=== PATIENT | male | born 1940 | race Caucasian/White ===

== ENCOUNTER 2016-08-17 21:36 | Inpatient (IN) | payer MEDICARE, MEDICAID ==
[~2016-08-17] VITALS: Ht 170.2 cm; Wt 59.7 kg
[~2016-08-17 21:36] MED LIST: AMBIEN PO; AMLO10TA4 PO; ARICEPT PO; CELEBREX PO; CLARITIN PO; FLOMAX PO; LANTUS SQ; LEXAPRO PO; MELO15TA13 PO; METF10002 PO; PREG150C PO; QUET100T PO; QUET50TA PO; TEMA30CA5 PO; TOLT4CAP PO
--- NOTE | 2016-08-17 21:45 | NUR ---
Pt just d/c today from [facility], BIB ambulance from rehab for fever and wheezing. Pt A&Ox1, LS = w/rhonchi, no wheezing, temp normal. c/o upper quad, midline ABD pain, unable to qualify. No other complaints, no distress noted
[2016-08-17 22:09] LABS: BASOPHILS # (AUTO) 0.2 K/uL (0.0-8.0); BASOPHILS % (AUTO) 0.3 % (0.0-2.0); EOSINOPHILS # (AUTO) 0.4 K/uL (0.0-0.7); EOSINOPHILS % (AUTO) 0.5 % (0.0-7.0); HEMATOCRIT 37.7 % (40-50); HEMOGLOBIN 12.3 G/DL (14.0-18.0); LYMPHOCYTES # (AUTO) 52.5 K/UL (0.8-4.8); LYMPHOCYTES % (AUTO) 72.1 % (20.5-51.5); MEAN CORPUSCULAR HEMOGLOBIN 27.7 UUG (27.0-31.0); MEAN CORPUSCULAR HGB CONC 33 g/dL (32.0-37.0); MONOCYTES # (AUTO) 6.7 K/UL (0.1-1.30); MONOCYTES % (AUTO) 9.2 % (0.0-11.0); NEUTROPHILS % (AUTO) 17.9 % (38.5-71.5); PLATELET COUNT (AUTO) 238 K/UL (150-450); RED BLOOD CELL COUNT(AUTO) 4.44 MIL/UL (4.7-6.1)
[2016-08-17 22:16] LABS: WHITE BLOOD COUNT (AUTO) 72.8 K/UL (4.0-11.2)
[2016-08-17 22:19] LABS: CARBON DIOXIDE 31 mmol/L (21-32); CHLORIDE 95 mmol/L (98-107); CREATININE 1.8 mg/dL (0.6-1.3); GLUCOSE 270 mg/dL (74-106); POTASSIUM 4.3 mmol/L (3.5-5.1); UREA NITROGEN, BLOOD 37 mg/dL (7-18)
[2016-08-17 22:30] LABS: ALANINE AMINOTRANSFERASE 25 U/L (16-63); ALKALINE PHOSPHATASE 101 U/L (50-136); ASPARTATE AMINOTRANSFERASE 28 U/L (15-37); BILIRUBIN,DIRECT 0.1 mg/dL (0.0-0.2); BILIRUBIN,TOTAL 0.3 mg/dL (0.2-1.0); TOTAL PROTEIN, SERUM 6.6 g/dL (6.4-8.2)
[2016-08-17] MEDS ORDERED: PANT40TA2 PO (22:38)
[2016-08-17] MEDS ORDERED: MULT-447 PO (22:38)
[2016-08-17] MEDS ORDERED: CARV6.252 PO (22:38)
[2016-08-17] MEDS ORDERED: ATOR10TA PO (22:38)
[2016-08-17] MEDS ORDERED: POLY17PO4 PO (22:38)
[2016-08-17] MEDS ORDERED: PREG100C PO (22:38)
[2016-08-17] MEDS ORDERED: NITR0.4T48 SL (22:38)
[2016-08-17] MEDS ORDERED: QUET25TA PO (22:38)
[2016-08-17] MEDS ORDERED: DICL100G16 TP (22:38)
[2016-08-17] MEDS ORDERED: ACET-73 PO (22:38)
[2016-08-17] MEDS ORDERED: MAGN400T6 PO (22:38)
[2016-08-17] MEDS ORDERED: MORP4SYR IV (22:38)
[2016-08-17] MEDS ORDERED: DONE5TAB7 PO (22:38)
[2016-08-17] MEDS ORDERED: HYDR-3326 PO (22:38)
[2016-08-17] MEDS ORDERED: DEXT50DI8 IV (22:38)
[2016-08-17] MEDS ORDERED: INSU200I SQ (22:38)
[2016-08-17] MEDS ORDERED: HYDR-552 PO (22:38)
[2016-08-17] MEDS ORDERED: TRAZ-147 PO (22:38)
[2016-08-17] MEDS ORDERED: ALBU1.257 NEB (22:38)
[2016-08-17] MEDS ORDERED: SENN-18 PO (22:38)
[2016-08-17] MEDS ORDERED: LORA-259 PO (22:38)
[2016-08-17] MEDS ORDERED: ASPI81TA31 PO (22:38)
[2016-08-17] MEDS ORDERED: FURO10VI IV (22:38)
[2016-08-17] MEDS ORDERED: BLOO-140 IN (22:38)
[2016-08-17] MEDS ORDERED: ASCO500T9 PO (22:38)
[2016-08-17] MEDS ORDERED: ENAL1.2515 IV (22:38)
[2016-08-17] MEDS ORDERED: NIAC250T8 PO (22:38)
[2016-08-17] MEDS ORDERED: TAMS-3 PO (22:38)
[2016-08-17] MEDS ORDERED: OMEG1CAP74 PO (22:38)
[2016-08-17] MEDS ORDERED: INSU100V10 SQ (22:38)
[2016-08-17] MEDS ORDERED: BISA10SU8 RC (22:38)
[2016-08-17] MEDS ORDERED: ONDA4VIA30 IV (22:38)
[2016-08-17] MEDS ORDERED: DEXT1CAP3 PO (22:38)
[2016-08-17] MEDS ORDERED: FERR-58 PO (22:38)
[2016-08-17] MEDS ORDERED: DOCU100C36 PO (22:38)
[2016-08-17] MEDS ORDERED: ALBUTEROL SULFATE 2.5 MG/3 ML NEBU NEB PRN (22:45)
[2016-08-17] MEDS ORDERED: ACETAMINOPHEN 325 MG TABLET PO PRN (22:45)
[2016-08-17] MEDS ORDERED: NITROGLYCERIN OINT 1 GM PACKET TP ONE ×2 (22:45→23:05)
[2016-08-17 23:17] LABS: LYMPHOCYTES % (MANUAL) 77 % (20-40); MONOCYTES % (MANUAL) 1 % (2-10); NEUTROPHILS % (MANUAL) 13 % (42-75)
--- NOTE | 2016-08-17 23:28 | NUR ---
Called report to
--- NOTE | 2016-08-18 00:15 | NUR ---
admit new patient to room 217,awake,alert,confused, occasional yelling,Farsi speaking, in no acute distress,no fever at present times, tele SR with LBBB ,skin care and prevention provided,safety precautions,bed alarm on.
[2016-08-18 00:24] VITALS: BP 135/78
[2016-08-18] MEDS: IV 1/2NS 1000 ML 1,000 ML IV PRN ×2 (00:44→18:01)
[2016-08-18] MEDS ORDERED: PIPERACILLIN/TAZO 2.25 GM VIAL ONE (02:31)
[2016-08-18 04:00] VITALS: BP 130/67
[2016-08-18] MEDS: PIPERACILLIN/TAZOBACTAM/D5W 2.25 G in PREMIXED 1 EACH IV SCH ×3 (05:36→21:48)
[2016-08-18 07:01] LABS: ALANINE AMINOTRANSFERASE 19 U/L (16-63); ALKALINE PHOSPHATASE 100 U/L (50-136); ASPARTATE AMINOTRANSFERASE 20 U/L (15-37); BILIRUBIN,TOTAL 0.6 mg/dL (0.2-1.0); CARBON DIOXIDE 30 mmol/L (21-32); CHLORIDE 96 mmol/L (98-107); CHOLESTEROL 156 mg/dL (<200); CREATININE 1.7 mg/dL (0.6-1.3); HDL CHOLESTEROL 41 mg/dL (40-60); MAGNESIUM 2.2 mg/dL (1.8-2.4); PHOSPHOROUS 3.6 mg/dL (2.5-4.9); POTASSIUM 4.6 mmol/L (3.5-5.1); TOTAL PROTEIN, SERUM 6.4 g/dL (6.4-8.2); TRIGLYCERIDES 134 MG/DL (30-150); UREA NITROGEN, BLOOD 36 mg/dL (7-18)
[2016-08-18 07:23] LABS: THYROID STIMULATING HORMONE 1.139 mIU/mL (0.358-3.740)
[2016-08-18 07:38] LABS: BASOPHILS # (AUTO) 0.4 K/uL (0.0-8.0); BASOPHILS % (AUTO) 0.6 % (0.0-2.0); EOSINOPHILS # (AUTO) 0.4 K/uL (0.0-0.7); EOSINOPHILS % (AUTO) 0.6 % (0.0-7.0); HEMATOCRIT 36.1 % (40-50); HEMOGLOBIN 11.7 G/DL (14.0-18.0); LYMPHOCYTES # (AUTO) 52.2 K/UL (0.8-4.8); LYMPHOCYTES % (AUTO) 76.6 % (20.5-51.5); MEAN CORPUSCULAR HEMOGLOBIN 27.5 UUG (27.0-31.0); MEAN CORPUSCULAR HGB CONC 32 g/dL (32.0-37.0); MONOCYTES # (AUTO) 2.9 K/UL (0.1-1.30); MONOCYTES % (AUTO) 4.2 % (0.0-11.0); NEUTROPHILS # (AUTO) 12.3 K/UL (1.8-8.9); PLATELET COUNT (AUTO) 229 K/UL (150-450); RED BLOOD CELL COUNT(AUTO) 4.25 MIL/UL (4.7-6.1)
[2016-08-18 07:55] LABS: WHITE BLOOD COUNT (AUTO) 68.2 K/UL (4.0-11.2)
[2016-08-18 07:56] LABS: GLUCOSE 302 mg/dL (74-106)
[2016-08-18] MEDS ORDERED: VANCOMYCIN IV 1 G in PREMIXED 0 EACH IV ONE (08:00)
--- NOTE | 2016-08-18 08:30 | NUR ---
RECEIVED LAB RESULT WBC IS 68.2,GLUCOSE IS 302,TROPONIN IS 2082,DR RAMOS NOTIFIED WITH NO NEW ORDERS AT THIS TIME.
[2016-08-18] MEDS: ASPIRIN EC 325 MG TABLET.DR PO SCH (08:57)
--- NOTE | 2016-08-18 08:59 | NUR ---
RECEIVED PATIENT ION BED AWAKE ALERT TO SELF ONLY WITH CONFUSSION AND DISORIENTATION TALKING INCOHERENTLY DUE MEDICATIONS GIVEN WITH WATER AND PATIENT WAS ABLE TO SWALLOW MAX ASSIST FOR ALL ADL MAD COMFORTABLE NOT IN DISTRESS AT THIS TIME.
[2016-08-18] MEDS ORDERED: PANTOPRAZOLE SODIUM 40 MG VIAL IV SCH (09:00)
[2016-08-18 10:12] LABS: EOSINOPHILS % (MANUAL) 1 % (0-8); LYMPHOCYTES % (MANUAL) 79 % (20-40); MONOCYTES % (MANUAL) 4 % (2-10); NEUTROPHILS % (MANUAL) 16 % (42-75)
--- NOTE | 2016-08-18 11:45 | NUR ---
DR HUSTON HERE TO SEE PATIENT AWARE OF WBC WITH NEW ORDERS AND NOTED
[2016-08-18 12:10] VITALS: BP 135/75
[2016-08-18] MEDS: ALLOPURINOL 100 MG TABLET PO SCH (12:22)
--- NOTE | 2016-08-18 13:21 | NUR ---
PATIENT SEEN AND EXAMINED BY DR BLAIR WITH NEW ORDERS AND NOTED.
[2016-08-18] MEDS: HYDROXYUREA 500 MG CAPSULE PO SCH (13:25)
--- NOTE | 2016-08-18 15:08 | NUR ---
Clinical Pharmacy Note: Vancomycin Pharmacy to Dose Subjective: To start vancomycin in this 76 y/o gentleman for indication of "documented infection" (no Md note yet, wbc elevated) Objective: weight 59 kg height 170 cm BUN 37 Scr 1.8 Wbc 72.8 Temp 98.8 Assessment/Plan Dosed 1gm vancomycin one time dose today at 0800 as renal function may be unstable. Will continue to dose per level until Scr resolves. Next random ordered for tomorrow am @ 0600. Will check level and dose accordingly. Will continue to monitor
[2016-08-18] MEDS ORDERED: DEXTROSE 50% 50 ML DISP.SYRIN IV PRN (15:30)
--- NOTE | 2016-08-18 15:37 | NUR ---
NEW ORDERS NOTED FROM DR RAMOS TO START BLOOD SUGAR CHECKS AND NOTED.
[2016-08-18 16:12] VITALS: BP 131/60
[2016-08-18] MEDS: BLOOD SUGAR DIAGNOSTIC 1 EACH STRIP VI SCH ×2 (16:14→21:43)
[2016-08-18] MEDS: INSULIN REGULAR, HUMAN 300 UNIT/3 ML VIAL SQ PRN (16:15)
[2016-08-18 16:37] LABS: *BILIRUBIN,URIN NEGATIVE (NEGATIVE); *BLOOD, URINE NEGATIVE (NEGATIVE); *CLARITY,URINE CLEAR (CLEAR); *COLOR,URINE YELLOW (YELLOW); *KETONES,URINE NEGATIVE (NEGATIVE); *PROTEIN,URINE TRACE (NEGATIVE); *UROBILINOGEN,URINE 0.2 E.U./dl (NORMAL); LEUKOCYTE ESTERASE ,URINE NEGATIVE (NEGATIVE); NITRITE, URINE NEGATIVE (NEGATIVE); PH,URINE 7.5 (5.0-8.0)
[2016-08-18 16:42] LABS: UGLUCOSE 1+ (NEGATIVE)
[2016-08-18 16:46] LABS: BACTERIA,URINE NONE SEEN /HPF (NONE SEEN); RBC,URINE 0-3 /HPF (0-3); SQUAMOUS EPITHELIAL CELL,UR NONE SEEN /HPF (NONE SEEN)
[2016-08-18] MEDS: MORPHINE SULFATE 2 MG/1 ML DISP.SYRIN IV PRN ×2 (17:14→22:00)
--- NOTE | 2016-08-18 17:14 | NUR ---
PATIENT IS GETTING AGITATED ANXIOUS AND RESTLESS DR RAMOS AWARE MEDICATED FOR GENERALISED PAIN HE IS ALSO RUBBING HIS LEFT SHOULDER AND WILL OBSERVE
[2016-08-18 17:19] LABS: *URINE TOTAL PROTEIN RANDOM 24.4 mg/dL (<150/24HR)
[2016-08-18 20:00] VITALS: BP 142/70
[2016-08-18] MEDS: INSULIN REGULAR, HUMAN 300 UNITS/3 ML VIAL SQ PRN (21:47)
[2016-08-19] VITALS: BP 122/66
[2016-08-19 04:00] VITALS: BP 148/82
[2016-08-19] MEDS: PANTOPRAZOLE SODIUM 40 MG TABLET.DR PO SCH (05:27)
[2016-08-19] MEDS: PIPERACILLIN/TAZOBACTAM/D5W 2.25 G in PREMIXED 1 EACH IV SCH ×2 (05:27→13:03)
--- NOTE | 2016-08-19 06:28 | NUR ---
PT ALERT ,ORIENTED TO HIS NAME, C/O LEFT SHOULDER PAIN MEDICATED WITH MORPHINE WITH GOOD RELIEF,SLEPT WELL OVERNIGHT,SON ,ZAKIA CAME AND VISITED LAST NIGHT,FED PT WITH LINO. ALL NEEDS ATTENDED,VSS,AFEBRILE MAX 99.3.INCONTINENT BUT NO BM. CONTINUE WITH IV FLUIDS AND ANTIBIOTICS,KEPT ATTENDED AT ALL TIMES.
[2016-08-19] MEDS: BLOOD SUGAR DIAGNOSTIC 1 EACH STRIP VI SCH ×4 (07:37→20:50)
[2016-08-19 07:38] LABS: BASOPHILS # (AUTO) 0.3 K/uL (0.0-8.0); BASOPHILS % (AUTO) 0.6 % (0.0-2.0); EOSINOPHILS % (AUTO) 1.8 % (0.0-7.0); HEMATOCRIT 33.6 % (40-50); HEMOGLOBIN 10.9 G/DL (14.0-18.0); LYMPHOCYTES % (AUTO) 78.8 % (20.5-51.5); MEAN CORPUSCULAR HEMOGLOBIN 27.7 UUG (27.0-31.0); MEAN CORPUSCULAR HGB CONC 32 g/dL (32.0-37.0); MEAN CORPUSCULAR VOLUME 85.7 FL (82.0-92.0); MONOCYTES # (AUTO) 1.5 K/UL (0.1-1.30); MONOCYTES % (AUTO) 2.7 % (0.0-11.0); NEUTROPHILS # (AUTO) 9.2 K/UL (1.8-8.9); NEUTROPHILS % (AUTO) 16.1 % (38.5-71.5); PLATELET COUNT (AUTO) 199 K/UL (150-450); RED BLOOD CELL COUNT(AUTO) 3.93 MIL/UL (4.7-6.1)
[2016-08-19] MEDS: INSULIN REGULAR, HUMAN 300 UNIT/3 ML VIAL SQ PRN ×2 (07:54→11:26)
--- NOTE | 2016-08-19 08:00 | NUR ---
WBC TODAY IS 57.0 TRENDING TO THE RIGHT DIRECTION AT THIS TIME.
[2016-08-19 08:05] LABS: ALANINE AMINOTRANSFERASE 19 U/L (16-63); ALKALINE PHOSPHATASE 93 U/L (50-136); ASPARTATE AMINOTRANSFERASE 14 U/L (15-37); BILIRUBIN,TOTAL 0.6 mg/dL (0.2-1.0); CARBON DIOXIDE 27 mmol/L (21-32); CHLORIDE 98 mmol/L (98-107); CREATINE KINASE, TOTAL 99 U/L (39-308); CREATININE 1.2 mg/dL (0.6-1.3); GLUCOSE 218 mg/dL (74-106); MAGNESIUM 1.9 mg/dL (1.8-2.4); PHOSPHOROUS 3.9 mg/dL (2.5-4.9); TOTAL PROTEIN, SERUM 6.2 g/dL (6.4-8.2); UREA NITROGEN, BLOOD 27 mg/dL (7-18); VANCOMYCIN,RANDOM 8.1 ug/mL (18.0-26.0)
[2016-08-19] MEDS: ALLOPURINOL 100 MG TABLET PO SCH (08:26)
[2016-08-19] MEDS: ASPIRIN EC 325 MG TABLET.DR PO SCH (08:27)
[2016-08-19] MEDS: HYDROXYUREA 500 MG CAPSULE PO SCH (08:31)
--- NOTE | 2016-08-19 10:45 | NUR ---
PATIENT SEEN AND EXAMINED BY DR HUSTON WITH NO NEW ORDERS AT THIS TIME
[2016-08-19] MEDS ORDERED: VANCOMYCIN IV 1 G in PREMIXED 0 EACH IV ONE (11:00)
[2016-08-19 11:50] LABS: EOSINOPHILS % (MANUAL) 2 % (0-8); LYMPHOCYTES % (MANUAL) 79 % (20-40); MONOCYTES % (MANUAL) 3 % (2-10); NEUTROPHILS % (MANUAL) 16 % (42-75)
[2016-08-19 12:08] VITALS: BP 113/53
[2016-08-19] MEDS: ONDANSETRON 4 MG/2 ML VIAL IV PRN (13:02)
[2016-08-19] MEDS: IV 1/2NS 1000 ML 1,000 ML IV PRN (13:03)
--- NOTE | 2016-08-19 13:13 | NUR ---
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 reactive? (per promotion specialist's note) Objective: weight 59 kg height 170 cm BUN 27 Scr 1.2 Wbc 57 (CLL) Temp 99.1 Vancomycin random level: 8.1 (with am labs- post 1gm given on 08/18 at 0800) Assessment/Plan Due to unstable srcr , will continue to dose by fall off level. Since vancomycin random level today us 8.1, will give vancomycin 1gm IVPB x1 today at 1100. Next random ordered for tomorrow am @ 0600. Will check level and dose accordingly. Will continue to monitor
--- NOTE | 2016-08-19 13:41 | NUR ---
NOTED WITH EMESIS OF PARTLY UNDIGESTED FOOD RIGHT WHILE HE WAS EATING MEDICATED WITH ZOFRAN AND MADE COMFORTABLE NO FURTHER EMESIS AT THIS TIME
[2016-08-19 16:16] VITALS: BP 116/63
[2016-08-19] MEDS: CARVEDILOL 3.125 MG TABLET PO SCH (17:01)
--- NOTE | 2016-08-19 17:48 | NUR ---
RESTING IV FLUIDS DISCONTINUED ORDERED MADE COMFORTABLE NO ADVERSE OR ALLERGIC REACTIONS AT THIS TIME.
[2016-08-19 20:42] VITALS: BP 149/70
[2016-08-19] MEDS: ATORVASTATIN 20 MG TABLET PO SCH (20:46)
[2016-08-19] MEDS: PIPERACILLIN/TAZOBACTAM/D5W 3.375 G in PREMIXED 1 EACH IV SCH (20:46)
[2016-08-20 00:12] VITALS: BP 158/81
[2016-08-20 04:12] VITALS: BP 156/83
[2016-08-20] MEDS: PIPERACILLIN/TAZOBACTAM/D5W 3.375 G in PREMIXED 1 EACH IV SCH ×3 (04:58→22:45)
[2016-08-20] MEDS: PANTOPRAZOLE SODIUM 40 MG TABLET.DR PO SCH (05:34)
[2016-08-20] MEDS: BLOOD SUGAR DIAGNOSTIC 1 EACH STRIP VI SCH ×4 (06:33→21:59)
[2016-08-20 06:36] LABS: BASOPHILS # (AUTO) 0.2 K/uL (0.0-8.0); BASOPHILS % (AUTO) 0.4 % (0.0-2.0); EOSINOPHILS # (AUTO) 0.6 K/uL (0.0-0.7); HEMATOCRIT 36.3 % (40-50); HEMOGLOBIN 11.9 G/DL (14.0-18.0); LYMPHOCYTES # (AUTO) 44.8 K/UL (0.8-4.8); LYMPHOCYTES % (AUTO) 79.1 % (20.5-51.5); MEAN CORPUSCULAR HEMOGLOBIN 28.2 UUG (27.0-31.0); MEAN CORPUSCULAR HGB CONC 33 g/dL (32.0-37.0); MEAN CORPUSCULAR VOLUME 85.9 FL (82.0-92.0); MONOCYTES # (AUTO) 1.2 K/UL (0.1-1.30); MONOCYTES % (AUTO) 2.1 % (0.0-11.0); NEUTROPHILS # (AUTO) 9.9 K/UL (1.8-8.9); NEUTROPHILS % (AUTO) 17.4 % (38.5-71.5); PLATELET COUNT (AUTO) 261 K/UL (150-450); RED BLOOD CELL COUNT(AUTO) 4.23 MIL/UL (4.7-6.1)
[2016-08-20 06:45] LABS: WHITE BLOOD COUNT (AUTO) 56.7 K/UL (4.0-11.2)
[2016-08-20 06:54] LABS: ALANINE AMINOTRANSFERASE 19 U/L (16-63); ALKALINE PHOSPHATASE 94 U/L (50-136); ASPARTATE AMINOTRANSFERASE 15 U/L (15-37); BILIRUBIN,TOTAL 0.8 mg/dL (0.2-1.0); CARBON DIOXIDE 26 mmol/L (21-32); CHLORIDE 99 mmol/L (98-107); CREATININE 1.1 mg/dL (0.6-1.3); GLUCOSE 199 mg/dL (74-106); MAGNESIUM 1.9 mg/dL (1.8-2.4); PHOSPHOROUS 4.2 mg/dL (2.5-4.9); POTASSIUM 4.2 mmol/L (3.5-5.1); TOTAL PROTEIN, SERUM 6.8 g/dL (6.4-8.2); UREA NITROGEN, BLOOD 23 mg/dL (7-18); VANCOMYCIN,RANDOM 13.2 ug/mL (18.0-26.0)
[2016-08-20] MEDS: INSULIN REGULAR, HUMAN 300 UNIT/3 ML VIAL SQ PRN ×3 (07:57→17:12)
[2016-08-20 08:05] LABS: LYMPHOCYTES % (MANUAL) 85 % (20-40); MONOCYTES % (MANUAL) 3 % (2-10); NEUTROPHILS % (MANUAL) 12 % (42-75)
--- NOTE | 2016-08-20 08:10 | NUR ---
PATIENT IS CONFUSED AND DISORIENTED SCREAMING AT THE TOP OF HIS VOICE DID SAY PAIN SO I MEDICATED HIM WITH MORPHINE AND HIS IV SITE CHANGED TO HIS RIGHT HAND WITH GAUGE 20 ALL NEEDS ANTICIPATED AND SATISFIED.MAX ASSIST FOR ALL ADL TURNED AND REPOSITIONED AND MADE COMFORTABLE AND WILL CONTINUE TO OBSERVE.
[2016-08-20] MEDS: ASPIRIN 81 MG TAB.CHEW PO SCH (08:18)
[2016-08-20] MEDS: ALLOPURINOL 100 MG TABLET PO SCH (08:18)
[2016-08-20] MEDS: MORPHINE SULFATE 2 MG/1 ML DISP.SYRIN IV PRN (08:18)
[2016-08-20] MEDS: CARVEDILOL 3.125 MG TABLET PO SCH ×2 (08:19→17:05)
[2016-08-20] MEDS: HYDROXYUREA 500 MG CAPSULE PO SCH (08:21)
[2016-08-20] MEDS ORDERED: FUROSEMIDE 20 MG/2 ML VIAL IV ONE (08:30)
--- NOTE | 2016-08-20 09:37 | NUR ---
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 reactive? (per linux system engineer's note) Objective: weight 59 kg height 170 cm BUN 23 Scr 1.1 Wbc 56.7 (CLL) Temp 98.7 Vancomycin random level: 13.2 (with am labs today) Assessment/Plan Due to unstable srcr , will continue to dose by fall off level. Based on random, will give another vancomycin 1gm IVPB x1 today at 1100. Next random ordered for tomorrow am @ 0600. Will check level and dose accordingly. Will continue to monitor
[2016-08-20] MEDS ORDERED: VANCOMYCIN IV 1 G in PREMIXED 0 EACH IV ONE (11:00)
[2016-08-20 11:59] VITALS: BP 137/75
[2016-08-20] MEDS: MORPHINE SULFATE 4 MG/1 ML DISP.SYRIN IV PRN ×2 (12:03→23:19)
--- NOTE | 2016-08-20 12:10 | NUR ---
PATIENT IS AGAIN SCREAMING AT THE TOP OF HIS LUNGS RESTLESS AND STATED PAIN MEDICATED WITH MORPHINE ORDERED AND WILL CONTINUE TO OBSERVE.
[2016-08-20] MEDS: LORAZEPAM 2 MG/1 ML VIAL IV PRN ×2 (12:55→18:21)
--- NOTE | 2016-08-20 12:57 | NUR ---
PATIENT IS STILL SCREAMING AND VERY RESTLESS DESPITE MORPHINE BEING ADMINISTERED ORDERED SO I CALLED AND SPOKE WITH DR RAMOS WITH NEW ORDERS AND NOTED.
--- NOTE | 2016-08-20 13:41 | NUR ---
REMAINS AWAKE BUT NOT SCREAMING AT THIS TIME.
[2016-08-20 14:08] LABS: A/G RATIO 1.4 (0.7-1.7); ALBUMIN 3.3 g/dL (2.9-4.4); ALPHA-1-GLOBULIN 0.3 g/dL (0.0-0.4); ALPHA-2-GLOBULIN 0.7 g/dL (0.4-1.0); BETA GLOBULIN 0.8 g/dL (0.7-1.3); GAMMA GLOBULIN 0.6 g/dL (0.4-1.8); GLOBULIN, TOTAL 2.4 g/dL (2.2-3.9); M-SPIKE Not Observed g/dL (Not Observed)
[2016-08-20 16:00] VITALS: BP 157/61
--- NOTE | 2016-08-20 18:23 | NUR ---
PATIENT IS AGITATED AND RESTLESS SCREAMING TRYING TO GET OUT OF BED REPOSITIONED SO MANY TIMES AT RISKS FOR FALLS RELATED TO CONFUSSION AND DISORIENTATION PATIENT PULLED OUT HER HEPLOCK TWO TIMES TODAY DESPITE THE FACT THAT IT IS WRAPPED A NEW ONE REINSERTED AND WRAPPED PATIENT PLACED UP ON THE KENYATTA/FABIOLA AND WILL OBSERVE.
--- NOTE | 2016-08-20 18:53 | NUR ---
PATIENT IS STILL ON THE KENYATTA/CHAIR BUT HIS SON AND IS AT THE BEDSIDE AT THIS TIME ASSISTING HIM WITH SNACKS QUITE AT THE MOMENT WILL CONTINUE TO OBSERVE.
[2016-08-20 20:00] VITALS: BP 143/68
[2016-08-20] MEDS: ATORVASTATIN 20 MG TABLET PO SCH (21:59)
[2016-08-20] MEDS: INSULIN REGULAR, HUMAN 300 UNITS/3 ML VIAL SQ PRN (22:16)
[2016-08-20] MEDS: ONDANSETRON 4 MG/2 ML VIAL IV PRN (23:19)
--- NOTE | 2016-08-21 00:30 | NUR ---
PT IS AGITATED, SCREAMING, REPEATEDLY TRYING TO GET OUT OF BED. PLACED PATIENT IN THE GERICHAIR, KEPT COMFORTABLE WITH BLANKET AND PILLOWS. ADMINISTERED ATIVAN. WILL CONTINUE TO MONITOR.
[2016-08-21] MEDS: LORAZEPAM 2 MG/1 ML VIAL IV PRN (00:34)
--- NOTE | 2016-08-21 03:00 | NUR ---
PT IS STILL AGITATED, SCREAMING. PROVIDED SNACKS, FLUIDS, MEDS PRN, COMFORT, KEPT CLEAN/DRY, BUT NOT EFFECTIVE. MADE MD AWARE.
[2016-08-21] MEDS ORDERED: OLANZAPINE 10 MG VIAL IM ONE ×2 (03:30→08:45)
--- NOTE | 2016-08-21 03:30 | NUR ---
DR. ROBERT WITH NEW ORDERS FOR ZYPREXA 10MG IM X ONCE. VERBAL ORDERS TAKEN. WILL CONTINUE TO MONITOR.
[2016-08-21 04:46] VITALS: BP 127/58
[2016-08-21] MEDS: PIPERACILLIN/TAZOBACTAM/D5W 3.375 G in PREMIXED 1 EACH IV SCH ×2 (05:16→14:49)
[2016-08-21] MEDS: PANTOPRAZOLE SODIUM 40 MG TABLET.DR PO SCH (06:17)
[2016-08-21] MEDS: BLOOD SUGAR DIAGNOSTIC 1 EACH STRIP VI SCH ×4 (06:33→17:19)
[2016-08-21 06:43] LABS: BASOPHILS # (AUTO) 0.4 K/uL (0.0-8.0); BASOPHILS % (AUTO) 0.7 % (0.0-2.0); EOSINOPHILS # (AUTO) 0.6 K/uL (0.0-0.7); EOSINOPHILS % (AUTO) 1.1 % (0.0-7.0); HEMATOCRIT 35.9 % (40-50); HEMOGLOBIN 11.9 G/DL (14.0-18.0); LYMPHOCYTES # (AUTO) 45.9 K/UL (0.8-4.8); LYMPHOCYTES % (AUTO) 81.7 % (20.5-51.5); MEAN CORPUSCULAR HEMOGLOBIN 28.2 UUG (27.0-31.0); MEAN CORPUSCULAR HGB CONC 33 g/dL (32.0-37.0); MEAN CORPUSCULAR VOLUME 85.3 FL (82.0-92.0); MONOCYTES # (AUTO) 1.2 K/UL (0.1-1.30); MONOCYTES % (AUTO) 2.1 % (0.0-11.0); NEUTROPHILS # (AUTO) 8.1 K/UL (1.8-8.9); NEUTROPHILS % (AUTO) 14.4 % (38.5-71.5); PLATELET COUNT (AUTO) 287 K/UL (150-450); RED BLOOD CELL COUNT(AUTO) 4.21 MIL/UL (4.7-6.1)
[2016-08-21 06:48] LABS: ALANINE AMINOTRANSFERASE 16 U/L (16-63); ALKALINE PHOSPHATASE 93 U/L (50-136); ASPARTATE AMINOTRANSFERASE 16 U/L (15-37); BILIRUBIN,TOTAL 0.4 mg/dL (0.2-1.0); CARBON DIOXIDE 30 mmol/L (21-32); CHLORIDE 97 mmol/L (98-107); CREATININE 1.3 mg/dL (0.6-1.3); GLUCOSE 167 mg/dL (74-106); MAGNESIUM 1.9 mg/dL (1.8-2.4); PHOSPHOROUS 3.7 mg/dL (2.5-4.9); POTASSIUM 3.9 mmol/L (3.5-5.1); TOTAL PROTEIN, SERUM 6.9 g/dL (6.4-8.2); UREA NITROGEN, BLOOD 31 mg/dL (7-18); VANCOMYCIN,RANDOM 18.1 ug/mL (18.0-26.0)
--- NOTE | 2016-08-21 07:00 | NUR ---
Confused, climbing out of bed, agitated, screaming. Request transfer to Room 226 with Sitter. Placed on vandana chair for closed watch for safety.
[2016-08-21 07:15] LABS: WHITE BLOOD COUNT (AUTO) 56.2 K/UL (4.0-11.2)
--- NOTE | 2016-08-21 07:30 | NUR ---
ORDER FOR ZYPREXA NOT GIVEN PATIENT CALMED DOWN FROM 0330 - 0700. WILL ENDORSE THE ORDER TO THE DAY SHIFT. DAY SHIFT RN CALLED PHARM TO RE ENTER ORDER FOR ZYPREXA 10MG IM X ONCE. PT IS STARTING TO GET AGITATED. ZYPREXA WILL BE GIVEN BY DAY SHIFT RN.
[2016-08-21 07:46] LABS: EOSINOPHILS % (MANUAL) 1 % (0-8); LYMPHOCYTES % (MANUAL) 83 % (20-40); MONOCYTES % (MANUAL) 5 % (2-10); NEUTROPHILS % (MANUAL) 11 % (42-75)
[2016-08-21] MEDS ORDERED: VANCOMYCIN IV 1 G in PREMIXED 0 EACH IV ONE (09:00)
[2016-08-21] MEDS: ALLOPURINOL 100 MG TABLET PO SCH (09:34)
[2016-08-21] MEDS: ASPIRIN 81 MG TAB.CHEW PO SCH (09:34)
[2016-08-21] MEDS: CARVEDILOL 3.125 MG TABLET PO SCH (09:34)
--- NOTE | 2016-08-21 09:35 | NUR ---
Continued to be agitated, screaming, refusing meds. Zyprexa IM given as ordered. Calm, cooperative after, took meds
[2016-08-21 11:07] LABS: *IMMUNOGLOBULIN G, SERUM 628 mg/dL (700-1600); IMMUNOGLOBULIN A, SERUM 107 mg/dL (61-437); IMMUNOGLOBULIN M, SERUM 33 mg/dL (15-143)
[2016-08-21 11:26] VITALS: BP 138/68
[2016-08-21] MEDS: INSULIN REGULAR, HUMAN 300 UNIT/3 ML VIAL SQ PRN ×2 (11:52→17:22)
--- NOTE | 2016-08-21 13:36 | NUR ---
Resting on vandana chair, calm.
[2016-08-21 15:12] VITALS: BP 153/75
--- NOTE | 2016-08-21 16:04 | NUR ---
Clinical Pharmacy Note: Vancomycin Pharmacy to Dose Subjective: To continue vancomycin in this 76 y/o gentleman for Leukocytosis with sepsis, suspected asp. 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 Based on random, another vancomycin 1gm IVPB x1 was given today at 0900. Next random ordered for tomorrow am @ 0600. Will check level and dose accordingly. Will continue to monitor
[2016-08-21] MEDS ORDERED: METOPROLOL TARTRATE 25 MG TABLET PO ONE (16:47)
[2016-08-21] MEDS ORDERED: LISI-607 PO (16:59)
[2016-08-21] MEDS ORDERED: ACET325T53 PO (16:59)
[2016-08-21] MEDS ORDERED: QUET25TA PO (17:01)
[2016-08-21] MEDS ORDERED: REPA1TAB PO (17:06)
[2016-08-21] MEDS ORDERED: AMOX-430 PO (17:07)
[2016-08-21] MEDS ORDERED: CARVEDILOL 6.25 MG TABLET PO SCH (18:00)
--- NOTE | 2016-08-21 19:30 | NUR ---
RECEIVED PT IN BED AWAKE, CONFUSED. IN NO ACUTE SIGNS OF DISTRESS. ON 1:1 SITTER FOR SAFETY. SAFETY OBSERVED. [facility].
[2016-08-21 20:00] VITALS: BP 125/64
--- NOTE | 2016-08-21 20:22 | NUR ---
PT WAS DISCHARGED TO [facility]. PICKED UP BY AMBULANCE VIA GURNEY. IV SITE ON R WRIST WAS REMOVED. STABLE IN CONDITION.
[2016-08-22] MEDS ORDERED: GLIMEPIRIDE 2 MG TABLET PO SCH (08:00)
== END 2016-08-21 20:29 | DRG 871 ==
LOC: ER 21:39 → TELE 23:00 → MED 08-20 15:37
PROVIDERS: ADMIT Internal Medicine; ATTEND Internal Medicine
DX: A41.9 Sepsis, unspecified organism (principal); G92 Toxic encephalopathy; I21.4 Non-ST elevation (NSTEMI) myocardial infarction; N17.0 Acute kidney failure with tubular necrosis; J69.0 Pneumonitis due to inhalation of food and vomit; I50.43 Acute on chronic combined systolic (congestive) and diastolic (congestive) heart failure; D68.59 Other primary thrombophilia; E87.1 Hypo-osmolality and hyponatremia; C91.10 Chronic lymphocytic leukemia of B-cell type not having achieved remission; J96.10 Chronic respiratory failure, unspecified whether with hypoxia or hypercapnia; I13.0 Hypertensive heart and chronic kidney disease with heart failure and stage 1 through stage 4 chronic kidney disease, or unspecified chronic kidney disease; G20 Parkinson's disease; F02.80 Dementia in other diseases classified elsewhere, unspecified severity, without behavioral disturbance, psychotic disturbance, mood disturbance, and anxiety; G30.9 Alzheimer's disease, unspecified; Z85.118 Personal history of other malignant neoplasm of bronchus and lung; Z79.84 Long term (current) use of oral hypoglycemic drugs; Z79.899 Other long term (current) drug therapy; N40.0 Benign prostatic hyperplasia without lower urinary tract symptoms; D64.9 Anemia, unspecified; E78.5 Hyperlipidemia, unspecified; E11.65 Type 2 diabetes mellitus with hyperglycemia; I25.10 Atherosclerotic heart disease of native coronary artery without angina pectoris; F29 Unspecified psychosis not due to a substance or known physiological condition; I11.0 Hypertensive heart disease with heart failure; Z74.09 Other reduced mobility; M19.90 Unspecified osteoarthritis, unspecified site; I25.5 Ischemic cardiomyopathy; F31.9 Bipolar disorder, unspecified; I44.7 Left bundle-branch block, unspecified; M48.06 Spinal stenosis, lumbar region; E11.22 Type 2 diabetes mellitus with diabetic chronic kidney disease; N18.9 Chronic kidney disease, unspecified; F25.9 Schizoaffective disorder, unspecified
CPT/HCPCS: 36415; 70030-TC; 70450; 71010; 76770; 82746; 82784; 83550; 83605; 83735; 83970; 84100; 84155; 84156; 84165; 84300; 84443; 84550; 85025; 85610; 85730; 86334; 87040; 87086; 93005; 93307; 97116; 97161; 97530; J1815; J1940; J2060; J2270; J2358; J2405; J2543; J3370; J3490; J7040; J7060

== ENCOUNTER 2016-10-12 15:37 | Inpatient (IN) | payer MEDICARE, MEDICAID ==
[~2016-10-12] VITALS: Ht 170.2 cm; Wt 61.9 kg
[~2016-10-12 15:37] MED LIST changes: +ACET325T53 PO; +ALBU1.257 NEB; -AMBIEN PO; +AMOX-430 PO; -ARICEPT PO; +ASCO500T9 PO; +ASPI81TA31 PO; +ATOR10TA PO; +BISA10SU8 RC; +BLOO-140 IN; +CARV6.252 PO; -CELEBREX PO; -CLARITIN PO; +DEXT1CAP3 PO; +DEXT50DI8 IV; +DOCU100C36 PO; +DONE5TAB7 PO; +FERR-58 PO; -FLOMAX PO; +HYDR-552 PO; +INSU100V10 SQ; -LANTUS SQ; -LEXAPRO PO; +LISI-607 PO; +LORA-259 PO; -METF10002 PO; +MULT-447 PO; +NIAC250T8 PO; +PANT40TA2 PO; +POLY17PO4 PO; +PREG100C PO; -PREG150C PO; -QUET100T PO; +QUET25TA PO; -QUET50TA PO; +REPA1TAB PO; +TAMS-3 PO; -TEMA30CA5 PO; +TRAZ-147 PO
[2016-10-12] MEDS ORDERED: IV NORMAL SALINE 500 ML BAG IV ONE (15:45)
[2016-10-12] MEDS ORDERED: HUMALOG KWIKPEN SQ (16:01)
[2016-10-12 16:07] LABS: BASOPHILS # (AUTO) 0.2 K/uL (0.0-8.0); BASOPHILS % (AUTO) 0.3 % (0.0-2.0); EOSINOPHILS # (AUTO) 0.6 K/uL (0.0-0.7); EOSINOPHILS % (AUTO) 1.1 % (0.0-7.0); HEMATOCRIT 26.1 % (40-50); HEMOGLOBIN 8.5 G/DL (14.0-18.0); LYMPHOCYTES # (AUTO) 42.8 K/UL (0.8-4.8); MEAN CORPUSCULAR HEMOGLOBIN 29.1 UUG (27.0-31.0); MEAN CORPUSCULAR HGB CONC 33 g/dL (32.0-37.0); MEAN CORPUSCULAR VOLUME 88.8 FL (82.0-92.0); NEUTROPHILS # (AUTO) 9.5 K/UL (1.8-8.9); NEUTROPHILS % (AUTO) 16.6 % (38.5-71.5); PLATELET COUNT (AUTO) 201 K/UL (150-450); RED BLOOD CELL COUNT(AUTO) 2.94 MIL/UL (4.7-6.1)
[2016-10-12 16:14] LABS: WHITE BLOOD COUNT (AUTO) 57.1 K/UL (4.0-11.2)
[2016-10-12 16:16] LABS: CARBON DIOXIDE 31 mmol/L (21-32); CHLORIDE 97 mmol/L (98-107); CREATININE 1.4 mg/dL (0.6-1.3); GLUCOSE 264 mg/dL (74-106); POTASSIUM 4.7 mmol/L (3.5-5.1); UREA NITROGEN, BLOOD 26 mg/dL (7-18)
[2016-10-12 16:28] LABS: ALANINE AMINOTRANSFERASE 22 U/L (16-63); ALKALINE PHOSPHATASE 93 U/L (50-136); ASPARTATE AMINOTRANSFERASE 12 U/L (15-37); BILIRUBIN,DIRECT 0.1 mg/dL (0.0-0.2); BILIRUBIN,TOTAL 0.1 mg/dL (0.2-1.0); TOTAL PROTEIN, SERUM 6.1 g/dL (6.4-8.2)
[2016-10-12 16:37] LABS: EOSINOPHILS % (MANUAL) 1 % (0-8); LYMPHOCYTES % (MANUAL) 79 % (20-40); MONOCYTES % (MANUAL) 6 % (2-10); NEUTROPHILS % (MANUAL) 14 % (42-75)
[2016-10-12] MEDS ORDERED: FUROSEMIDE 20 MG/2 ML VIAL IV ONE (16:45)
[2016-10-12] MEDS ORDERED: FUROSEMIDE 40 MG/4 ML VIAL ONE (16:55)
[2016-10-12] MEDS ORDERED: LORAZEPAM 2 MG/1 ML VIAL IV STA (17:13)
[2016-10-12] MEDS ORDERED: LORAZEPAM 2 MG/1 ML VIAL ONE (17:27)
[2016-10-12 17:32] LABS: *BILIRUBIN,URIN NEGATIVE (NEGATIVE); *BLOOD, URINE NEGATIVE (NEGATIVE); *CLARITY,URINE CLEAR (CLEAR); *KETONES,URINE NEGATIVE (NEGATIVE); *PROTEIN,URINE NEGATIVE (NEGATIVE); *UROBILINOGEN,URINE 0.2 E.U./dl (NORMAL); LEUKOCYTE ESTERASE ,URINE NEGATIVE (NEGATIVE); NITRITE, URINE NEGATIVE (NEGATIVE); UGLUCOSE TRACE (NEGATIVE)
[2016-10-12 17:38] VITALS: BP 145/68
[2016-10-12 17:40] LABS: *COLOR,URINE STRAW (YELLOW)
[2016-10-12 17:43] LABS: WBC,URINE NONE SEEN /HPF (0-3)
[2016-10-12 19:00] VITALS: BP 146/66
[2016-10-12] MEDS ORDERED: ZOLPIDEM 5 MG TABLET PO PRN (19:45)
[2016-10-12] MEDS ORDERED: Z GUARD REMEDY PASTE 57 GM TUBE TOP PRN (19:45)
[2016-10-12] MEDS ORDERED: MIRALAX 17 GM POWD.PACK PO PRN (19:45)
[2016-10-12] MEDS ORDERED: QUETIAPINE FUMARATE 25 MG TABLET PO PRN (19:45)
[2016-10-12] MEDS ORDERED: ACETAMINOPHEN 325 MG TABLET PO PRN (19:45)
[2016-10-12] MEDS ORDERED: ONDANSETRON 4 MG/2 ML VIAL IV PRN (19:45)
[2016-10-12] MEDS: ATORVASTATIN 10 MG TABLET PO SCH (20:30)
[2016-10-12] MEDS: TRAZODONE 100 MG TABLET PO SCH (20:30)
[2016-10-12] MEDS: DONEPEZIL 5 MG TABLET PO SCH (20:30)
[2016-10-12] MEDS: QUETIAPINE FUMARATE 25 MG TABLET PO SCH (20:30)
[2016-10-12] MEDS: FUROSEMIDE 40 MG/4 ML VIAL IV SCH (20:32)
[2016-10-12] MEDS: BLOOD SUGAR DIAGNOSTIC 1 EACH STRIP VI SCH (20:48)
[2016-10-12] MEDS: INSULIN REGULAR, HUMAN 300 UNIT/3 ML VIAL SQ PRN (20:50)
[2016-10-12] MEDS: INSULIN DETEMIR 300 UNIT/3 ML CARTRIDGE SQ SCH (20:51)
[2016-10-12] MEDS ORDERED: HALOPERIDOL LACTATE 5 MG/1 ML VIAL IM ONE (22:15)
[2016-10-12] MEDS ORDERED: HALOPERIDOL LACTATE 5 MG/1 ML VIAL ONE (22:30)
[2016-10-12] MEDS ORDERED: ALBU2.5V38 IH (23:47)
[2016-10-12] MEDS ORDERED: ALBU2.5V38 NEB (23:47)
[2016-10-12] MEDS ORDERED: ASCO-375 PO (23:48)
[2016-10-12] MEDS ORDERED: LORA-259 PO (23:50)
[2016-10-12] MEDS ORDERED: ASPI81TA31 PO (23:50)
[2016-10-12] MEDS ORDERED: BISA10SU8 RC (23:52)
[2016-10-13] VITALS: BP 155/78
[2016-10-13] MEDS: HYDROCODONE/APAP 5-325MG TABLET PO PRN ×2 (00:17→13:26)
[2016-10-13] MEDS ORDERED: HALOPERIDOL LACTATE 5 MG/1 ML VIAL IM ONE (00:45)
[2016-10-13] MEDS ORDERED: HALOPERIDOL LACTATE 5 MG/1 ML VIAL ONE (01:37)
[2016-10-13 06:52] VITALS: BP 116/65
[2016-10-13] MEDS: PANTOPRAZOLE SODIUM 40 MG TABLET.DR PO SCH (07:00)
[2016-10-13] MEDS: BLOOD SUGAR DIAGNOSTIC 1 EACH STRIP VI SCH ×4 (07:21→22:05)
[2016-10-13] MEDS: DEXTROSE 50% 50 ML DISP.SYRIN IV PRN (07:33)
[2016-10-13 07:59] LABS: CARBON DIOXIDE 32 mmol/L (21-32); CHLORIDE 97 mmol/L (98-107); CHOLESTEROL 166 mg/dL (<200); CREATININE 1.3 mg/dL (0.6-1.3); HDL CHOLESTEROL 55 mg/dL (40-60); MAGNESIUM 1.6 mg/dL (1.8-2.4); POTASSIUM 3.7 mmol/L (3.5-5.1); TRIGLYCERIDES 139 MG/DL (30-150); UREA NITROGEN, BLOOD 25 mg/dL (7-18)
[2016-10-13 08:07] LABS: THYROID STIMULATING HORMONE 2.662 mIU/mL (0.358-3.740)
[2016-10-13 08:12] LABS: BASOPHILS # (AUTO) 0.3 K/uL (0.0-8.0); BASOPHILS % (AUTO) 0.5 % (0.0-2.0); EOSINOPHILS # (AUTO) 0.9 K/uL (0.0-0.7); EOSINOPHILS % (AUTO) 1.5 % (0.0-7.0); LYMPHOCYTES # (AUTO) 47.3 K/UL (0.8-4.8); LYMPHOCYTES % (AUTO) 78.5 % (20.5-51.5); MEAN CORPUSCULAR HEMOGLOBIN 28.5 UUG (27.0-31.0); MEAN CORPUSCULAR HGB CONC 33 g/dL (32.0-37.0); MEAN CORPUSCULAR VOLUME 87.1 FL (82.0-92.0); MONOCYTES # (AUTO) 1.9 K/UL (0.1-1.30); MONOCYTES % (AUTO) 3.1 % (0.0-11.0); NEUTROPHILS # (AUTO) 9.9 K/UL (1.8-8.9); NEUTROPHILS % (AUTO) 16.4 % (38.5-71.5); PLATELET COUNT (AUTO) 245 K/UL (150-450)
[2016-10-13 08:15] LABS: HEMOGLOBIN 10.8 G/DL (14.0-18.0); RED BLOOD CELL COUNT(AUTO) 3.79 MIL/UL (4.7-6.1)
[2016-10-13 08:17] LABS: GLUCOSE 52 mg/dL (74-106)
[2016-10-13 08:18] LABS: WHITE BLOOD COUNT (AUTO) 60.3 K/UL (4.0-11.2)
[2016-10-13] MEDS ORDERED: PANTOPRAZOLE SODIUM 40 MG TABLET.DR PO SCH (09:00)
[2016-10-13 09:29] LABS: EOSINOPHILS % (MANUAL) 1 % (0-8); LYMPHOCYTES % (MANUAL) 79 % (20-40); MONOCYTES % (MANUAL) 3 % (2-10); NEUTROPHILS % (MANUAL) 17 % (42-75)
[2016-10-13] MEDS: PREGABALIN 100 MG CAPSULE PO SCH ×3 (09:59→17:44)
[2016-10-13] MEDS: FUROSEMIDE 40 MG/4 ML VIAL IV SCH ×2 (09:59→21:00)
[2016-10-13] MEDS: FERROUS SULFATE 325 MG TABEC PO SCH (09:59)
[2016-10-13] MEDS: DOCUSATE SODIUM 100 MG CAPSULE PO SCH (09:59)
[2016-10-13] MEDS: TAMSULOSIN HCL 0.4 MG CAP.SR.24H PO SCH ×2 (09:59→21:59)
[2016-10-13] MEDS: TOLTERODINE LA 2 MG CAP.SR.24H PO SCH (10:00)
[2016-10-13] MEDS: CARVEDILOL 6.25 MG TABLET PO SCH ×2 (10:00→17:50)
[2016-10-13] MEDS: AMLODIPINE 10 MG TABLET PO SCH (10:00)
[2016-10-13] MEDS: REPAGLINIDE 1 MG TABLET PO SCH ×3 (10:03→17:43)
[2016-10-13 11:47] VITALS: BP 122/55
[2016-10-13] MEDS: INSULIN REGULAR, HUMAN 300 UNIT/3 ML VIAL SQ PRN ×3 (12:08→22:09)
[2016-10-13] MEDS: MAGNESIUM SULFATE/D5W 100 ML IV SCH ×2 (15:09→17:39)
[2016-10-13 16:20] VITALS: BP 152/53
[2016-10-13] MEDS ORDERED: ALBUTEROL SULFATE 2.5 MG/3 ML NEBU IH PRN (18:45)
[2016-10-13] MEDS ORDERED: BISACODYL 10 MG SUPP.RECT RC PRN (18:45)
[2016-10-13] MEDS ORDERED: DEXTROSE 50% 50 ML DISP.SYRIN IV PRN (18:45)
[2016-10-13 19:17] VITALS: BP 119/61
[2016-10-13] MEDS: DONEPEZIL 5 MG TABLET PO SCH (21:59)
[2016-10-13] MEDS: ATORVASTATIN 10 MG TABLET PO SCH (21:59)
[2016-10-13] MEDS: QUETIAPINE FUMARATE 25 MG TABLET PO SCH (21:59)
[2016-10-13] MEDS: TRAZODONE 100 MG TABLET PO SCH (21:59)
[2016-10-13] MEDS: INSULIN DETEMIR 300 UNIT/3 ML CARTRIDGE SQ SCH (22:07)
[2016-10-14 03:00] VITALS: BP 116/54
[2016-10-14 04:18] VITALS: BP 121/54
[2016-10-14 05:57] LABS: ALANINE AMINOTRANSFERASE 23 U/L (16-63); ALKALINE PHOSPHATASE 92 U/L (50-136); ASPARTATE AMINOTRANSFERASE 16 U/L (15-37); BILIRUBIN,TOTAL 0.3 mg/dL (0.2-1.0); CARBON DIOXIDE 35 mmol/L (21-32); CHLORIDE 99 mmol/L (98-107); CREATININE 1.3 mg/dL (0.6-1.3); MAGNESIUM 2.2 mg/dL (1.8-2.4); PHOSPHOROUS 5.5 mg/dL (2.5-4.9); POTASSIUM 3.6 mmol/L (3.5-5.1); UREA NITROGEN, BLOOD 32 mg/dL (7-18)
[2016-10-14 06:01] LABS: GLUCOSE 41 mg/dL (74-106)
[2016-10-14] MEDS: DEXTROSE 50% 50 ML DISP.SYRIN IV PRN (06:17)
[2016-10-14] MEDS: PANTOPRAZOLE SODIUM 40 MG TABLET.DR PO SCH (06:23)
[2016-10-14] MEDS: BLOOD SUGAR DIAGNOSTIC 1 EACH STRIP VI SCH ×4 (07:09→20:59)
[2016-10-14] MEDS: ASPIRIN 81 MG TAB.CHEW PO SCH (08:20)
[2016-10-14] MEDS: TAMSULOSIN HCL 0.4 MG CAP.SR.24H PO SCH ×2 (08:20→20:49)
[2016-10-14] MEDS: ASCORBIC ACID 500 MG TABLET PO SCH (08:20)
[2016-10-14] MEDS: DOCUSATE SODIUM 100 MG CAPSULE PO SCH (08:20)
[2016-10-14] MEDS: CARVEDILOL 6.25 MG TABLET PO SCH ×2 (08:21→17:06)
[2016-10-14] MEDS: REPAGLINIDE 1 MG TABLET PO SCH ×3 (08:21→17:06)
[2016-10-14] MEDS: FERROUS SULFATE 325 MG TABEC PO SCH (08:21)
[2016-10-14] MEDS: TOLTERODINE LA 2 MG CAP.SR.24H PO SCH (08:21)
[2016-10-14] MEDS: PREGABALIN 100 MG CAPSULE PO SCH ×3 (08:21→17:06)
[2016-10-14] MEDS: FUROSEMIDE 40 MG/4 ML VIAL IV SCH (10:31)
[2016-10-14] MEDS: AMLODIPINE 10 MG TABLET PO SCH (10:34)
[2016-10-14] MEDS: LISINOPRIL 5 MG TABLET PO SCH (10:34)
[2016-10-14] MEDS: INSULIN REGULAR, HUMAN 300 UNIT/3 ML VIAL SQ PRN ×3 (11:59→21:09)
[2016-10-14 16:00] VITALS: BP 109/47
[2016-10-14 20:10] VITALS: BP 108/50
[2016-10-14] MEDS: ATORVASTATIN 10 MG TABLET PO SCH (20:49)
[2016-10-14] MEDS: QUETIAPINE FUMARATE 25 MG TABLET PO SCH (20:49)
[2016-10-14] MEDS: DONEPEZIL 5 MG TABLET PO SCH (20:49)
[2016-10-14] MEDS: TRAZODONE 100 MG TABLET PO SCH (20:49)
[2016-10-14] MEDS ORDERED: INSULIN DETEMIR 300 UNIT/3 ML CARTRIDGE SQ SCH (21:00)
[2016-10-15 06:28] LABS: BASOPHILS # (AUTO) 0.7 K/uL (0.0-8.0); BASOPHILS % (AUTO) 1.1 % (0.0-2.0); EOSINOPHILS # (AUTO) 0.9 K/uL (0.0-0.7); EOSINOPHILS % (AUTO) 1.4 % (0.0-7.0); HEMATOCRIT 34.7 % (40-50); HEMOGLOBIN 11.5 G/DL (14.0-18.0); LYMPHOCYTES # (AUTO) 50.1 K/UL (0.8-4.8); LYMPHOCYTES % (AUTO) 74.7 % (20.5-51.5); MEAN CORPUSCULAR HEMOGLOBIN 29.1 UUG (27.0-31.0); MEAN CORPUSCULAR HGB CONC 33 g/dL (32.0-37.0); MEAN CORPUSCULAR VOLUME 87.8 FL (82.0-92.0); MONOCYTES # (AUTO) 3.1 K/UL (0.1-1.30); MONOCYTES % (AUTO) 4.7 % (0.0-11.0); NEUTROPHILS # (AUTO) 12.1 K/UL (1.8-8.9); NEUTROPHILS % (AUTO) 18.1 % (38.5-71.5); PLATELET COUNT (AUTO) 242 K/UL (150-450); RED BLOOD CELL COUNT(AUTO) 3.95 MIL/UL (4.7-6.1)
[2016-10-15] MEDS: PANTOPRAZOLE SODIUM 40 MG TABLET.DR PO SCH (06:30)
[2016-10-15] MEDS: BLOOD SUGAR DIAGNOSTIC 1 EACH STRIP VI SCH ×2 (06:30→12:19)
[2016-10-15 06:43] LABS: CARBON DIOXIDE 35 mmol/L (21-32); CHLORIDE 98 mmol/L (98-107); CREATININE 1.7 mg/dL (0.6-1.3); GLUCOSE 86 mg/dL (74-106); POTASSIUM 3.9 mmol/L (3.5-5.1); UREA NITROGEN, BLOOD 35 mg/dL (7-18)
[2016-10-15 06:52] VITALS: BP 114/54
[2016-10-15 07:18] VITALS: BP 112/48
[2016-10-15] MEDS: PREGABALIN 100 MG CAPSULE PO SCH ×2 (08:03→12:24)
[2016-10-15] MEDS: DOCUSATE SODIUM 100 MG CAPSULE PO SCH (08:03)
[2016-10-15] MEDS: AMLODIPINE 10 MG TABLET PO SCH (08:03)
[2016-10-15] MEDS: ASPIRIN 81 MG TAB.CHEW PO SCH (08:03)
[2016-10-15] MEDS: FERROUS SULFATE 325 MG TABEC PO SCH (08:03)
[2016-10-15] MEDS: REPAGLINIDE 1 MG TABLET PO SCH ×2 (08:03→12:23)
[2016-10-15] MEDS: TOLTERODINE LA 2 MG CAP.SR.24H PO SCH (08:03)
[2016-10-15] MEDS: TAMSULOSIN HCL 0.4 MG CAP.SR.24H PO SCH (08:03)
[2016-10-15] MEDS: ASCORBIC ACID 500 MG TABLET PO SCH (08:03)
[2016-10-15] MEDS: LISINOPRIL 5 MG TABLET PO SCH (08:04)
[2016-10-15] MEDS: CARVEDILOL 6.25 MG TABLET PO SCH (08:04)
[2016-10-15 08:05] LABS: WHITE BLOOD COUNT (AUTO) 66.9 K/UL (4.0-11.2)
[2016-10-15 08:50] LABS: BAND % (MANUAL) 1 % (0-10); LYMPHOCYTES % (MANUAL) 82 % (20-40); MONOCYTES % (MANUAL) 1 % (2-10); NEUTROPHILS % (MANUAL) 16 % (42-75)
[2016-10-15] MEDS ORDERED: INSU100V10 SQ (09:27)
[2016-10-15 11:26] VITALS: BP 123/52
[2016-10-15] MEDS: INSULIN REGULAR, HUMAN 300 UNIT/3 ML VIAL SQ PRN (12:22)
== END 2016-10-15 15:30 | DRG 291 ==
LOC: ER 15:38 → TELE 17:12 → MED 10-13 16:05
DX: I11.0 Hypertensive heart disease with heart failure (principal); N17.0 Acute kidney failure with tubular necrosis; F02.81 Dementia in other diseases classified elsewhere, unspecified severity, with behavioral disturbance; C91.10 Chronic lymphocytic leukemia of B-cell type not having achieved remission; J98.11 Atelectasis; E87.1 Hypo-osmolality and hyponatremia; E11.649 Type 2 diabetes mellitus with hypoglycemia without coma; G30.9 Alzheimer's disease, unspecified; G20 Parkinson's disease; I50.43 Acute on chronic combined systolic (congestive) and diastolic (congestive) heart failure; Z79.899 Other long term (current) drug therapy; Z79.82 Long term (current) use of aspirin; E78.5 Hyperlipidemia, unspecified; I25.5 Ischemic cardiomyopathy; Z79.4 Long term (current) use of insulin; I44.7 Left bundle-branch block, unspecified; I25.10 Atherosclerotic heart disease of native coronary artery without angina pectoris; F25.9 Schizoaffective disorder, unspecified; Z85.118 Personal history of other malignant neoplasm of bronchus and lung; Z98.890 Other specified postprocedural states; M48.06 Spinal stenosis, lumbar region
CPT/HCPCS: 36415; 70030-TC; 71010; 83735; 84100; 84443; 85025; 85730; 87086; 93005; 97112; 97530; A4663; J1630; J1815; J1940; J2060; J3475; J3490; J7040

== ENCOUNTER 2017-01-02 17:41 | Inpatient (IN) | payer MEDICARE, MEDICAID ==
[~2017-01-02] VITALS: Ht 170.2 cm; Wt 58.1 kg
[~2017-01-02 17:41] MED LIST changes: -ALBU1.257 NEB; +ALBU2.5V38 IH; -AMOX-430 PO; +ASCO-375 PO; -ASCO500T9 PO; +HUMALOG KWIKPEN SQ
[2017-01-02] MEDS ORDERED: MELO-107 PO (18:12)
[2017-01-02] MEDS ORDERED: LACT1CAP61 PO (18:12)
[2017-01-02] MEDS ORDERED: ACET325T53 PO (18:12)
[2017-01-02] MEDS ORDERED: REPA1TAB6 PO (18:12)
[2017-01-02] MEDS ORDERED: LISI-607 PO (18:12)
[2017-01-02] MEDS ORDERED: INSU100V10 SQ (18:12)
[2017-01-02] MEDS ORDERED: QUET50TA PO (18:12)
[2017-01-02] MEDS ORDERED: CEFTRIAXONE 1 G in IV DEXTROSE 5% 50 ML IV ONE (18:45)
[2017-01-02 19:00] LABS: BASOPHILS # (AUTO) 0.3 K/uL (0.0-8.0); BASOPHILS % (AUTO) 0.4 % (0.0-2.0); EOSINOPHILS # (AUTO) 0.1 K/uL (0.0-0.7); EOSINOPHILS % (AUTO) 0.1 % (0.0-7.0); HEMATOCRIT 33.6 % (40-50); LYMPHOCYTES # (AUTO) 44.2 K/UL (0.8-4.8); LYMPHOCYTES % (AUTO) 56.8 % (20.5-51.5); MEAN CORPUSCULAR HEMOGLOBIN 26.7 UUG (27.0-31.0); MEAN CORPUSCULAR HGB CONC 33 g/dL (32.0-37.0); MEAN CORPUSCULAR VOLUME 81.8 FL (82.0-92.0); MONOCYTES # (AUTO) 5.5 K/UL (0.1-1.30); NEUTROPHILS # (AUTO) 27.8 K/UL (1.8-8.9); NEUTROPHILS % (AUTO) 35.7 % (38.5-71.5); PLATELET COUNT (AUTO) 329 K/UL (150-450); RED BLOOD CELL COUNT(AUTO) 4.11 MIL/UL (4.7-6.1)
[2017-01-02 19:00] LABS: ABG BASE EXCESS 1.3 mmol/L; ABG HCO3 25.2 mmol/L; ABG PCO2 37.2 mmHg (35.0-45.0); ABG PH 7.448 (7.350-7.450); ABG PO2 86.1 mmHg (75.0-100.0); ABG SITE RIGHT RADIAL; ABG TOTAL HEMOGLOBIN 11.2 G/dL (13.5-18.0); COHb 1.3 % (0.5-1.5); MetHb 0.2 % (0.0-1.5); O2Hb 95.8 % (94.0-97.0); VENT MODE ROOM AIR
[2017-01-02 19:11] LABS: CARBON DIOXIDE 27 mmol/L (21-32); CHLORIDE 97 mmol/L (98-107); CREATININE 1.7 mg/dL (0.6-1.3); GLUCOSE 197 mg/dL (74-106); POTASSIUM 4.8 mmol/L (3.5-5.1); UREA NITROGEN, BLOOD 39 mg/dL (7-18)
[2017-01-02 19:14] LABS: WHITE BLOOD COUNT (AUTO) 77.9 K/UL (4.0-11.2)
[2017-01-02 19:23] LABS: ALANINE AMINOTRANSFERASE 16 U/L (16-63); ALKALINE PHOSPHATASE 101 U/L (50-136); ASPARTATE AMINOTRANSFERASE 9 U/L (15-37); BILIRUBIN,DIRECT 0.1 mg/dL (0.0-0.2); BILIRUBIN,TOTAL 0.2 mg/dL (0.2-1.0); TOTAL PROTEIN, SERUM 6.6 g/dL (6.4-8.2)
[2017-01-02] MEDS ORDERED: CEFTRIAXONE 1 G VIAL ONE (19:23)
[2017-01-02 19:46] LABS: *BILIRUBIN,URIN NEGATIVE (NEGATIVE); *BLOOD, URINE 1+ (NEGATIVE); *COLOR,URINE YELLOW (YELLOW); *KETONES,URINE NEGATIVE (NEGATIVE); *PROTEIN,URINE 1+ (NEGATIVE); *UROBILINOGEN,URINE 0.2 E.U./dl (NORMAL); NITRITE, URINE NEGATIVE (NEGATIVE); PH,URINE 5.5 (5.0-8.0); UGLUCOSE NEGATIVE (NEGATIVE)
[2017-01-02 20:15] LABS: *CLARITY,URINE CLOUDY (CLEAR); LEUKOCYTE ESTERASE ,URINE 2+ (NEGATIVE)
[2017-01-02 20:16] LABS: BACTERIA,URINE MANY /HPF (NONE SEEN); SQUAMOUS EPITHELIAL CELL,UR FEW /HPF (NONE SEEN); WBC,URINE 80-100 /HPF (0-3)
[2017-01-02 21:35] LABS: BAND % (MANUAL) 3 % (0-10); LYMPHOCYTES % (MANUAL) 67 % (20-40); MONOCYTES % (MANUAL) 3 % (2-10); NEUTROPHILS % (MANUAL) 27 % (42-75)
[2017-01-02 22:00] VITALS: BP 143/60
[2017-01-02] MEDS ORDERED: MIRALAX 17 GM POWD.PACK PO PRN (23:45)
[2017-01-02] MEDS ORDERED: ACETAMINOPHEN 325 MG TABLET PO PRN (23:45)
[2017-01-02] MEDS ORDERED: ALBUTEROL SULFATE 2.5 MG/3 ML NEBU IH PRN (23:45)
[2017-01-02] MEDS ORDERED: BISACODYL 10 MG SUPP.RECT RC PRN (23:45)
[2017-01-02] MEDS ORDERED: DEXTROSE 50% 50 ML DISP.SYRIN IV PRN (23:45)
[2017-01-02] MEDS ORDERED: INSULIN DETEMIR 300 UNIT/3 ML CARTRIDGE SQ SCH (23:45)
[2017-01-03] MEDS ORDERED: PIPERACILLIN/TAZO 2.25 GM VIAL ONE (00:58)
[2017-01-03] MEDS ORDERED: INSULIN DETEMIR 300 UNIT/3 ML CARTRIDGE SQ ONE (00:59)
[2017-01-03] MEDS ORDERED: HYDROCODONE/APAP 5-325MG TABLET ONE (01:35)
[2017-01-03] MEDS: IV 1/2NS 1000 ML 1,000 ML IV PRN (01:39)
[2017-01-03] MEDS: PIPERACILLIN/TAZOBACTAM/D5W 2.25 G in PREMIXED 1 EACH IV SCH ×5 (01:41→20:17)
[2017-01-03] MEDS: HYDROCODONE/APAP 5-325MG TABLET PO PRN (01:42)
[2017-01-03 04:25] VITALS: BP 128/58
[2017-01-03 06:35] LABS: ALANINE AMINOTRANSFERASE 14 U/L (16-63); ALKALINE PHOSPHATASE 98 U/L (50-136); ASPARTATE AMINOTRANSFERASE 6 U/L (15-37); BILIRUBIN,TOTAL 0.2 mg/dL (0.2-1.0); CARBON DIOXIDE 27 mmol/L (21-32); CHLORIDE 97 mmol/L (98-107); CREATININE 1.5 mg/dL (0.6-1.3); GLUCOSE 235 mg/dL (74-106); MAGNESIUM 1.8 mg/dL (1.8-2.4); PHOSPHOROUS 3.5 mg/dL (2.5-4.9); POTASSIUM 4.3 mmol/L (3.5-5.1); TOTAL PROTEIN, SERUM 6.3 g/dL (6.4-8.2); UREA NITROGEN, BLOOD 34 mg/dL (7-18)
[2017-01-03 06:51] LABS: BASOPHILS # (AUTO) 0.5 K/uL (0.0-8.0); BASOPHILS % (AUTO) 0.8 % (0.0-2.0); EOSINOPHILS # (AUTO) 0.1 K/uL (0.0-0.7); EOSINOPHILS % (AUTO) 0.1 % (0.0-7.0); HEMATOCRIT 32.6 % (40-50); HEMOGLOBIN 10.7 G/DL (14.0-18.0); LYMPHOCYTES # (AUTO) 41.3 K/UL (0.8-4.8); MEAN CORPUSCULAR HEMOGLOBIN 27.2 UUG (27.0-31.0); MEAN CORPUSCULAR HGB CONC 33 g/dL (32.0-37.0); MEAN CORPUSCULAR VOLUME 83.1 FL (82.0-92.0); NEUTROPHILS # (AUTO) 23.7 K/UL (1.8-8.9); NEUTROPHILS % (AUTO) 35.1 % (38.5-71.5); PLATELET COUNT (AUTO) 305 K/UL (150-450); RED BLOOD CELL COUNT(AUTO) 3.93 MIL/UL (4.7-6.1)
[2017-01-03] MEDS: BLOOD SUGAR DIAGNOSTIC 1 EACH STRIP VI SCH ×4 (06:54→20:59)
[2017-01-03 07:26] LABS: WHITE BLOOD COUNT (AUTO) 67.7 K/UL (4.0-11.2)
[2017-01-03 08:05] LABS: IRON, SERUM 11 ug/dL (50-175)
[2017-01-03] MEDS: DOCUSATE SODIUM 100 MG CAPSULE PO SCH (08:41)
[2017-01-03] MEDS: AMLODIPINE 10 MG TABLET PO SCH (08:41)
[2017-01-03] MEDS: ASCORBIC ACID 500 MG TABLET PO SCH (08:41)
[2017-01-03] MEDS: ASPIRIN 81 MG TAB.CHEW PO SCH (08:41)
[2017-01-03] MEDS: REPAGLINIDE 1 MG TABLET PO SCH ×3 (08:42→17:00)
[2017-01-03] MEDS: FERROUS SULFATE 325 MG TABEC PO SCH (08:42)
[2017-01-03] MEDS: TAMSULOSIN HCL 0.4 MG CAP.SR.24H PO SCH ×2 (08:42→17:00)
[2017-01-03] MEDS: CARVEDILOL 6.25 MG TABLET PO SCH ×2 (08:42→17:00)
[2017-01-03] MEDS: PANTOPRAZOLE SODIUM 40 MG TABLET.DR PO SCH (08:42)
[2017-01-03] MEDS: INSULIN REGULAR, HUMAN 300 UNIT/3 ML VIAL SQ PRN ×3 (08:45→17:10)
[2017-01-03] MEDS: PREGABALIN 100 MG CAPSULE PO SCH ×3 (09:00→17:00)
[2017-01-03] MEDS: TOLTERODINE LA 2 MG CAP.SR.24H PO SCH (09:00)
[2017-01-03 09:02] LABS: LYMPHOCYTES % (MANUAL) 65 % (20-40); MONOCYTES % (MANUAL) 3 % (2-10); NEUTROPHILS % (MANUAL) 32 % (42-75)
[2017-01-03] MEDS ORDERED: VANCOMYCIN IV 1 G in PREMIXED 0 EACH IV ONE (10:00)
[2017-01-03 11:35] VITALS: BP 130/57
[2017-01-03] MEDS: INSULIN DETEMIR 300 UNIT/3 ML CARTRIDGE SQ SCH ×2 (13:00→21:02)
[2017-01-03 15:25] VITALS: BP 147/65
[2017-01-03 15:42] LABS: *BILIRUBIN,URIN NEGATIVE (NEGATIVE); *BLOOD, URINE 1+ (NEGATIVE); *CLARITY,URINE CLOUDY (CLEAR); *COLOR,URINE YELLOW (YELLOW); *KETONES,URINE NEGATIVE (NEGATIVE); *PROTEIN,URINE 1+ (NEGATIVE); *UROBILINOGEN,URINE 0.2 E.U./dl (NORMAL); LEUKOCYTE ESTERASE ,URINE 1+ (NEGATIVE); NITRITE, URINE NEGATIVE (NEGATIVE); UGLUCOSE NEGATIVE (NEGATIVE)
[2017-01-03 16:01] LABS: *CREATININE,URINE 59.7 mg/dL (30-125); *URINE TOTAL PROTEIN RANDOM 54.9 mg/dL (<150/24HR)
[2017-01-03 16:10] LABS: BACTERIA,URINE MODERATE /HPF (NONE SEEN); SQUAMOUS EPITHELIAL CELL,UR FEW /HPF (NONE SEEN); WBC,URINE 80-100 /HPF (0-3)
[2017-01-03 20:00] VITALS: BP 141/72
[2017-01-03] MEDS: QUETIAPINE FUMARATE 25 MG TABLET PO SCH (20:17)
[2017-01-03] MEDS: ATORVASTATIN 10 MG TABLET PO SCH (20:17)
[2017-01-03] MEDS: DONEPEZIL 5 MG TABLET PO SCH (20:18)
[2017-01-03] MEDS: TRAZODONE 100 MG TABLET PO SCH (20:18)
[2017-01-03] MEDS: LORAZEPAM 1 MG TABLET PO PRN (20:55)
[2017-01-04 00:14] VITALS: BP 132/72
[2017-01-04] MEDS: PIPERACILLIN/TAZOBACTAM/D5W 2.25 G in PREMIXED 1 EACH IV SCH ×2 (02:06→08:52)
[2017-01-04 04:00] VITALS: BP 117/67
[2017-01-04] MEDS: IV 1/2NS 1000 ML 1,000 ML IV PRN ×2 (04:09→20:49)
[2017-01-04] MEDS: PANTOPRAZOLE SODIUM 40 MG TABLET.DR PO SCH (05:28)
[2017-01-04] MEDS: LORAZEPAM 1 MG TABLET PO PRN ×2 (05:29→22:08)
[2017-01-04] MEDS: HYDROCODONE/APAP 5-325MG TABLET PO PRN ×3 (06:10→23:21)
[2017-01-04 06:27] LABS: ALANINE AMINOTRANSFERASE 15 U/L (16-63); ALKALINE PHOSPHATASE 89 U/L (50-136); ASPARTATE AMINOTRANSFERASE 9 U/L (15-37); BILIRUBIN,TOTAL 0.3 mg/dL (0.2-1.0); CARBON DIOXIDE 27 mmol/L (21-32); CHLORIDE 99 mmol/L (98-107); CREATINE KINASE, TOTAL 41 U/L (39-308); CREATININE 1.1 mg/dL (0.6-1.3); GLUCOSE 153 mg/dL (74-106); MAGNESIUM 1.7 mg/dL (1.8-2.4); PHOSPHOROUS 2.9 mg/dL (2.5-4.9); POTASSIUM 3.7 mmol/L (3.5-5.1); TOTAL PROTEIN, SERUM 6.4 g/dL (6.4-8.2); UREA NITROGEN, BLOOD 21 mg/dL (7-18)
[2017-01-04] MEDS: BLOOD SUGAR DIAGNOSTIC 1 EACH STRIP VI SCH ×4 (06:27→21:37)
[2017-01-04] MEDS: INSULIN REGULAR, HUMAN 300 UNIT/3 ML VIAL SQ PRN ×3 (06:29→21:38)
[2017-01-04 06:46] LABS: BASOPHILS # (AUTO) 0.1 K/uL (0.0-8.0); BASOPHILS % (AUTO) 0.2 % (0.0-2.0); EOSINOPHILS # (AUTO) 0.2 K/uL (0.0-0.7); EOSINOPHILS % (AUTO) 0.3 % (0.0-7.0); HEMATOCRIT 33.7 % (40-50); HEMOGLOBIN 11.2 G/DL (14.0-18.0); LYMPHOCYTES # (AUTO) 39.6 K/UL (0.8-4.8); LYMPHOCYTES % (AUTO) 70.9 % (20.5-51.5); MEAN CORPUSCULAR HEMOGLOBIN 27.5 UUG (27.0-31.0); MEAN CORPUSCULAR HGB CONC 33 g/dL (32.0-37.0); MEAN CORPUSCULAR VOLUME 82.6 FL (82.0-92.0); MONOCYTES # (AUTO) 2.7 K/UL (0.1-1.30); MONOCYTES % (AUTO) 4.8 % (0.0-11.0); NEUTROPHILS # (AUTO) 13.3 K/UL (1.8-8.9); NEUTROPHILS % (AUTO) 23.8 % (38.5-71.5); PLATELET COUNT (AUTO) 280 K/UL (150-450); RED BLOOD CELL COUNT(AUTO) 4.08 MIL/UL (4.7-6.1)
[2017-01-04 07:38] LABS: WHITE BLOOD COUNT (AUTO) 55.9 K/UL (4.0-11.2)
[2017-01-04 08:35] LABS: EOSINOPHILS % (MANUAL) 1 % (0-8); LYMPHOCYTES % (MANUAL) 71 % (20-40); MONOCYTES % (MANUAL) 4 % (2-10); NEUTROPHILS % (MANUAL) 24 % (42-75)
[2017-01-04] MEDS: INSULIN DETEMIR 300 UNIT/3 ML CARTRIDGE SQ SCH ×2 (09:00→21:37)
[2017-01-04] MEDS ORDERED: MAGNESIUM SULFATE/D5W 100 ML IV SCH (10:30)
[2017-01-04 11:05] VITALS: BP 124/61
[2017-01-04] MEDS: REPAGLINIDE 1 MG TABLET PO SCH ×3 (12:00→17:23)
[2017-01-04] MEDS: PREGABALIN 100 MG CAPSULE PO SCH ×3 (13:00→17:23)
[2017-01-04] MEDS: TOLTERODINE LA 2 MG CAP.SR.24H PO SCH (13:02)
[2017-01-04] MEDS: ASCORBIC ACID 500 MG TABLET PO SCH (13:02)
[2017-01-04] MEDS: FERROUS SULFATE 325 MG TABEC PO SCH (13:03)
[2017-01-04] MEDS: TAMSULOSIN HCL 0.4 MG CAP.SR.24H PO SCH ×2 (13:03→17:23)
[2017-01-04] MEDS: ASPIRIN 81 MG TAB.CHEW PO SCH (13:03)
[2017-01-04] MEDS: DOCUSATE SODIUM 100 MG CAPSULE PO SCH (13:03)
[2017-01-04] MEDS: CARVEDILOL 6.25 MG TABLET PO SCH ×2 (13:06→17:25)
[2017-01-04] MEDS: AMLODIPINE 10 MG TABLET PO SCH (13:06)
[2017-01-04 15:22] VITALS: BP 130/62
[2017-01-04] MEDS: CEFTRIAXONE 1 G in IV DEXTROSE 5% 50 ML IV SCH (16:01)
[2017-01-04] MEDS ORDERED: VANCOMYCIN IV 1 G in PREMIXED 0 EACH IV SCH (18:30)
[2017-01-04 19:30] VITALS: BP 132/66
[2017-01-04] MEDS: TRAZODONE 100 MG TABLET PO SCH (21:30)
[2017-01-04] MEDS: DONEPEZIL 5 MG TABLET PO SCH (21:30)
[2017-01-04] MEDS: QUETIAPINE FUMARATE 25 MG TABLET PO SCH (21:31)
[2017-01-04] MEDS: ATORVASTATIN 10 MG TABLET PO SCH (21:31)
[2017-01-05] MEDS: BLOOD SUGAR DIAGNOSTIC 1 EACH STRIP VI SCH ×4 (05:43→20:40)
[2017-01-05] MEDS: PANTOPRAZOLE SODIUM 40 MG TABLET.DR PO SCH (05:49)
[2017-01-05 06:22] VITALS: BP 145/67
[2017-01-05 07:09] LABS: CARBON DIOXIDE 30 mmol/L (21-32); CHLORIDE 100 mmol/L (98-107); GLUCOSE 121 mg/dL (74-106); PHOSPHOROUS 3.2 mg/dL (2.5-4.9); POTASSIUM 3.9 mmol/L (3.5-5.1); UREA NITROGEN, BLOOD 24 mg/dL (7-18)
[2017-01-05 07:57] LABS: BASOPHILS # (AUTO) 0.2 K/uL (0.0-8.0); BASOPHILS % (AUTO) 0.5 % (0.0-2.0); EOSINOPHILS # (AUTO) 0.4 K/uL (0.0-0.7); EOSINOPHILS % (AUTO) 0.9 % (0.0-7.0); HEMATOCRIT 30.4 % (40-50); LYMPHOCYTES % (AUTO) 79.9 % (20.5-51.5); MEAN CORPUSCULAR HGB CONC 33 g/dL (32.0-37.0); MEAN CORPUSCULAR VOLUME 81.9 FL (82.0-92.0); MONOCYTES # (AUTO) 1.6 K/UL (0.1-1.30); MONOCYTES % (AUTO) 3.5 % (0.0-11.0); NEUTROPHILS # (AUTO) 6.9 K/UL (1.8-8.9); NEUTROPHILS % (AUTO) 15.2 % (38.5-71.5); PLATELET COUNT (AUTO) 278 K/UL (150-450); RED BLOOD CELL COUNT(AUTO) 3.71 MIL/UL (4.7-6.1)
[2017-01-05 08:00] LABS: WHITE BLOOD COUNT (AUTO) 45.1 K/UL (4.0-11.2)
[2017-01-05] MEDS: REPAGLINIDE 1 MG TABLET PO SCH ×3 (08:25→17:15)
[2017-01-05] MEDS: DOCUSATE SODIUM 100 MG CAPSULE PO SCH (08:55)
[2017-01-05] MEDS: TOLTERODINE LA 2 MG CAP.SR.24H PO SCH (08:56)
[2017-01-05] MEDS: ASPIRIN 81 MG TAB.CHEW PO SCH (08:56)
[2017-01-05] MEDS: TAMSULOSIN HCL 0.4 MG CAP.SR.24H PO SCH ×2 (08:57→17:16)
[2017-01-05] MEDS: ASCORBIC ACID 500 MG TABLET PO SCH (08:57)
[2017-01-05] MEDS: PREGABALIN 100 MG CAPSULE PO SCH ×3 (08:57→17:15)
[2017-01-05] MEDS: FERROUS SULFATE 325 MG TABEC PO SCH (08:57)
[2017-01-05] MEDS: AMLODIPINE 10 MG TABLET PO SCH (08:57)
[2017-01-05] MEDS: CARVEDILOL 6.25 MG TABLET PO SCH ×2 (08:57→17:16)
[2017-01-05] MEDS: INSULIN DETEMIR 300 UNIT/3 ML CARTRIDGE SQ SCH ×2 (08:58→20:41)
[2017-01-05] MEDS: CEFTRIAXONE 1 G in IV DEXTROSE 5% 50 ML IV SCH (09:14)
[2017-01-05 10:27] LABS: EOSINOPHILS % (MANUAL) 1 % (0-8); LYMPHOCYTES % (MANUAL) 79 % (20-40); MONOCYTES % (MANUAL) 3 % (2-10); NEUTROPHILS % (MANUAL) 17 % (42-75)
[2017-01-05] MEDS ORDERED: IV NS 1000 ML 1,000 ML IV ONE (10:30)
[2017-01-05 11:25] VITALS: BP 143/56
[2017-01-05] MEDS: LORAZEPAM 1 MG TABLET PO PRN ×2 (11:26→20:44)
[2017-01-05] MEDS: INSULIN REGULAR, HUMAN 300 UNIT/3 ML VIAL SQ PRN (11:33)
[2017-01-05 15:27] VITALS: BP 143/58
[2017-01-05] MEDS: DONEPEZIL 5 MG TABLET PO SCH (20:36)
[2017-01-05] MEDS: ATORVASTATIN 10 MG TABLET PO SCH (20:36)
[2017-01-05] MEDS: QUETIAPINE FUMARATE 25 MG TABLET PO SCH (20:36)
[2017-01-05] MEDS: TRAZODONE 100 MG TABLET PO SCH (20:36)
[2017-01-06] MEDS: BLOOD SUGAR DIAGNOSTIC 1 EACH STRIP VI SCH ×2 (05:48→12:38)
[2017-01-06] MEDS: PANTOPRAZOLE SODIUM 40 MG TABLET.DR PO SCH (05:49)
[2017-01-06] MEDS: TOLTERODINE LA 2 MG CAP.SR.24H PO SCH (09:01)
[2017-01-06] MEDS: FERROUS SULFATE 325 MG TABEC PO SCH (09:01)
[2017-01-06] MEDS: ASPIRIN 81 MG TAB.CHEW PO SCH (09:01)
[2017-01-06] MEDS: ASCORBIC ACID 500 MG TABLET PO SCH (09:01)
[2017-01-06] MEDS: DOCUSATE SODIUM 100 MG CAPSULE PO SCH (09:01)
[2017-01-06] MEDS: TAMSULOSIN HCL 0.4 MG CAP.SR.24H PO SCH (09:02)
[2017-01-06] MEDS: REPAGLINIDE 1 MG TABLET PO SCH ×2 (09:02→12:36)
[2017-01-06] MEDS: PREGABALIN 100 MG CAPSULE PO SCH ×2 (09:02→12:36)
[2017-01-06 09:09] VITALS: BP 139/73
[2017-01-06] MEDS: CARVEDILOL 6.25 MG TABLET PO SCH (09:09)
[2017-01-06] MEDS: AMLODIPINE 10 MG TABLET PO SCH (09:09)
[2017-01-06] MEDS: LORAZEPAM 1 MG TABLET PO PRN (09:19)
[2017-01-06] MEDS: INSULIN DETEMIR 300 UNIT/3 ML CARTRIDGE SQ SCH (09:27)
[2017-01-06] MEDS: CEFTRIAXONE 1 G in IV DEXTROSE 5% 50 ML IV SCH (09:28)
[2017-01-06] MEDS ORDERED: LORAZEPAM 2 MG/1 ML VIAL IV ONE (12:15)
[2017-01-06] MEDS: INSULIN REGULAR, HUMAN 300 UNIT/3 ML VIAL SQ PRN (12:26)
[2017-01-06] MEDS ORDERED: INSU100I19 SQ (16:15)
[2017-01-06] MEDS ORDERED: CEPH-570 PO (16:15)
[2017-01-07 11:08] LABS: A/G RATIO 0.9 (0.7-1.7); ALBUMIN 2.7 g/dL (2.9-4.4); ALPHA-1-GLOBULIN 0.4 g/dL (0.0-0.4); GAMMA GLOBULIN 0.5 g/dL (0.4-1.8); GLOBULIN, TOTAL 2.9 g/dL (2.2-3.9); M-SPIKE Not Observed g/dL (Not Observed)
== END 2017-01-06 17:00 | DRG 871 ==
LOC: ER 17:42 → MED 21:39 → TELE 01-03 02:19 → MED 01-04 15:45
PROVIDERS: ADMIT Internal Medicine; ATTEND Internal Medicine
DX: A41.9 Sepsis, unspecified organism (principal); G92 Toxic encephalopathy; N17.0 Acute kidney failure with tubular necrosis; I21.A1 Myocardial infarction type 2; D68.59 Other primary thrombophilia; E11.22 Type 2 diabetes mellitus with diabetic chronic kidney disease; C91.10 Chronic lymphocytic leukemia of B-cell type not having achieved remission; I13.0 Hypertensive heart and chronic kidney disease with heart failure and stage 1 through stage 4 chronic kidney disease, or unspecified chronic kidney disease; I50.42 Chronic combined systolic (congestive) and diastolic (congestive) heart failure; E87.1 Hypo-osmolality and hyponatremia; N39.0 Urinary tract infection, site not specified; E11.65 Type 2 diabetes mellitus with hyperglycemia; G20 Parkinson's disease; E78.5 Hyperlipidemia, unspecified; F02.80 Dementia in other diseases classified elsewhere, unspecified severity, without behavioral disturbance, psychotic disturbance, mood disturbance, and anxiety; G30.9 Alzheimer's disease, unspecified; I25.10 Atherosclerotic heart disease of native coronary artery without angina pectoris; N18.2 Chronic kidney disease, stage 2 (mild); Z79.4 Long term (current) use of insulin; Z85.118 Personal history of other malignant neoplasm of bronchus and lung; N40.0 Benign prostatic hyperplasia without lower urinary tract symptoms; I25.5 Ischemic cardiomyopathy; M19.90 Unspecified osteoarthritis, unspecified site; N40.1 Benign prostatic hyperplasia with lower urinary tract symptoms; D63.0 Anemia in neoplastic disease; E83.9 Disorder of mineral metabolism, unspecified; B96.89 Other specified bacterial agents as the cause of diseases classified elsewhere; F25.9 Schizoaffective disorder, unspecified
CPT/HCPCS: 36415; 36600; 70030-TC; 71010; 83550; 83605; 83735; 83970; 84100; 84153; 84155; 84156; 84165; 84300; 85025; 85730; 87040; 87086; 87400; 92523; 93005; A4663; C1758; J0696; J1815; J2060; J2543; J3370; J3475; J3490; J7050; J7060

== ENCOUNTER 2017-02-06 13:04 | Inpatient (IN) | END 2017-02-10 20:36 | DRG 871 | DX: A41.9 Sepsis, unspecified organism (principal); N17.0 Acute kidney failure with tubular necrosis; I50.43 Acute on chronic combined systolic (congestive) and diastolic (congestive) heart failure; G92 Toxic encephalopathy; N39.0 Urinary tract infection, site not specified; C91.10 Chronic lymphocytic leukemia of B-cell type not having achieved remission; B96.20 Unspecified Escherichia coli [E. coli] as the cause of diseases classified elsewhere; E87.1 Hypo-osmolality and hyponatremia; D68.59 Other primary thrombophilia; I25.5 Ischemic cardiomyopathy; I25.10 Atherosclerotic heart disease of native coronary artery without angina pectoris; I11.0 Hypertensive heart disease with heart failure; G30.9 Alzheimer's disease, unspecified; F02.80 Dementia in other diseases classified elsewhere, unspecified severity, without behavioral disturbance, psychotic disturbance, mood disturbance, and anxiety; Z16.29 Resistance to other single specified antibiotic; Z16.12 Extended spectrum beta lactamase (ESBL) resistance; Z85.118 Personal history of other malignant neoplasm of bronchus and lung; Z90.2 Acquired absence of lung [part of]; Z87.440 Personal history of urinary (tract) infections; R65.20 Severe sepsis without septic shock; G31.83 Neurocognitive disorder with Lewy bodies; I25.2 Old myocardial infarction; M48.061 Spinal stenosis, lumbar region without neurogenic claudication; N40.0 Benign prostatic hyperplasia without lower urinary tract symptoms; I44.7 Left bundle-branch block, unspecified; Z79.899 Other long term (current) drug therapy; Z79.82 Long term (current) use of aspirin; Z22.322 Carrier or suspected carrier of Methicillin resistant Staphylococcus aureus; E78.5 Hyperlipidemia, unspecified; E11.65 Type 2 diabetes mellitus with hyperglycemia; D63.0 Anemia in neoplastic disease; Z74.09 Other reduced mobility ==

== ENCOUNTER 2017-02-25 21:07 | Inpatient (IN) | payer MEDICARE, MEDICAID ==
[~2017-02-25] VITALS: Ht 170.2 cm; Wt 63.3 kg
[~2017-02-25 21:07] MED LIST changes: -DEXT1CAP3 PO; +DIVA125C PO; -HUMALOG KWIKPEN SQ; +INSU100I19 SQ; -INSU100V10 SQ; +LACT1CAP61 PO; -LORA-259 PO; +MELO-107 PO; -MELO15TA13 PO; +MERO500V IV; -QUET25TA PO; +QUET50TA PO; -REPA1TAB PO; +REPA1TAB6 PO
[2017-02-25] MEDS ORDERED: IV NORMAL SALINE 1000 ML BAG IV ONE (21:30)
[2017-02-25 21:46] LABS: BASOPHILS # (AUTO) 0.1 K/uL (0.0-8.0); EOSINOPHILS # (AUTO) 0.1 K/uL (0.0-0.7); EOSINOPHILS % (AUTO) 0.2 % (0.0-7.0); MEAN CORPUSCULAR HGB CONC 32 g/dL (32.5-36.3); PLATELET COUNT (AUTO) 335 K/uL (152-348)
[2017-02-25 21:49] LABS: BASOPHILS % (AUTO) 0.2 % (0.0-2.0); HEMATOCRIT 28.5 % (36.7-47.1); HEMOGLOBIN 9.1 g/dL (12.5-16.3); LYMPHOCYTES # (AUTO) 57.4 K/uL (20.0-40.0); LYMPHOCYTES % (AUTO) 79.3 % (20.5-51.5); MEAN CORPUSCULAR HEMOGLOBIN 26.1 uug (23.8-33.4); MEAN CORPUSCULAR VOLUME 81.8 fL (73.0-96.2); MONOCYTES # (AUTO) 1.9 K/uL (2.0-10.0); MONOCYTES % (AUTO) 2.6 % (0.0-11.0); NEUTROPHILS # (AUTO) 12.7 K/uL (1.8-8.9); NEUTROPHILS % (AUTO) 17.7 % (38.5-71.5); RED BLOOD CELL COUNT(AUTO) 3.49 MIL/uL (4.06-5.63)
[2017-02-25 22:18] LABS: ALANINE AMINOTRANSFERASE 14 U/L (16-63); ALKALINE PHOSPHATASE 107 U/L (50-136); ASPARTATE AMINOTRANSFERASE 9 U/L (15-37); BILIRUBIN,DIRECT 0.1 mg/dL (0.0-0.2); BILIRUBIN,TOTAL 0.2 mg/dL (0.2-1.0); CARBON DIOXIDE 29 mmol/L (21-32); CHLORIDE 94 mmol/L (98-107); CREATININE 1.6 mg/dL (0.6-1.3); GLUCOSE 251 mg/dL (74-106); LIPASE 86 U/L (73-393); TOTAL PROTEIN, SERUM 6.5 g/dL (6.4-8.2); UREA NITROGEN, BLOOD 43 mg/dL (7-18)
[2017-02-25 22:23] LABS: POTASSIUM 6.4 mmol/L (3.5-5.1); WHITE BLOOD COUNT (AUTO) 72.2 K/uL (3.6-10.2)
[2017-02-25] MEDS ORDERED: INSULIN REGULAR, HUMAN 1,000 UNITS/10 ML VIAL IV ONE (22:30)
[2017-02-25] MEDS ORDERED: DEXTROSE 50% 50 ML DISP.SYRIN IV ONE (22:30)
[2017-02-25] MEDS ORDERED: FUROSEMIDE 20 MG/2 ML VIAL IV ONE (22:30)
[2017-02-25 22:36] LABS: LYMPHOCYTES % (MANUAL) 85 % (20-40); MONOCYTES % (MANUAL) 1 % (2-10); NEUTROPHILS % (MANUAL) 14 % (42-75)
[2017-02-25] MEDS ORDERED: INSULIN REGULAR, HUMAN 300 UNIT/3 ML VIAL ONE (22:48)
[2017-02-25] MEDS ORDERED: DEXTROSE 50% 50 ML DISP.SYRIN ONE (22:48)
[2017-02-25] MEDS ORDERED: FUROSEMIDE 40 MG/4 ML VIAL ONE (22:48)
[2017-02-25 23:43] LABS: *BILIRUBIN,URIN NEGATIVE (NEGATIVE); *BLOOD, URINE 1+ (NEGATIVE); *CLARITY,URINE CLOUDY (CLEAR); *COLOR,URINE STRAW (YELLOW); *KETONES,URINE NEGATIVE (NEGATIVE); *PROTEIN,URINE NEGATIVE (NEGATIVE); *UROBILINOGEN,URINE 0.2 E.U./dl (NORMAL); LEUKOCYTE ESTERASE ,URINE 3+ (NEGATIVE); NITRITE, URINE NEGATIVE (NEGATIVE); UGLUCOSE TRACE (NEGATIVE)
[2017-02-25] MEDS ORDERED: ALBUTEROL SULFATE 2.5 MG/3 ML NEBU IH PRN (23:45)
[2017-02-25] MEDS ORDERED: MORPHINE SULFATE 2 MG/1 ML DISP.SYRIN IV PRN (23:45)
[2017-02-25] MEDS ORDERED: ALBUTEROL SULFATE 2.5 MG/3 ML NEBU NEB PRN (23:45)
[2017-02-25] MEDS ORDERED: MEROPENEM 500 MG in IV NORMAL SALINE 50 ML IV SCH (23:45)
[2017-02-25] MEDS ORDERED: BISACODYL 10 MG SUPP.RECT RC PRN (23:45)
[2017-02-25] MEDS ORDERED: DEXTROSE 50% 50 ML DISP.SYRIN IV PRN (23:45)
[2017-02-25] MEDS ORDERED: IV NS 1000 ML 1,000 ML IV PRN (23:45)
[2017-02-25] MEDS ORDERED: HYDROCODONE/APAP 5-325MG TABLET PO PRN (23:45)
[2017-02-25] MEDS ORDERED: MIRALAX 17 GM POWD.PACK PO PRN (23:45)
[2017-02-26] VITALS: BP 106/48
[2017-02-26 00:05] LABS: BACTERIA,URINE MANY /HPF (NONE SEEN); SQUAMOUS EPITHELIAL CELL,UR NONE SEEN /HPF (NONE SEEN); WBC,URINE TNTC /HPF (0-3)
[2017-02-26] MEDS: ACETAMINOPHEN 325 MG TABLET PO PRN ×3 (00:33→11:22)
[2017-02-26] MEDS ORDERED: DEXTROSE 50% 50 ML DISP.SYRIN IV PRN (00:45)
[2017-02-26] MEDS ORDERED: ACETAMINOPHEN 325 MG TABLET ONE ×2 (00:49→06:20)
[2017-02-26] MEDS ORDERED: MEROPENEM 500 MG VIAL IV ONE (00:49)
[2017-02-26 04:00] VITALS: BP 131/62
[2017-02-26] MEDS: BLOOD SUGAR DIAGNOSTIC 1 EACH STRIP VI SCH ×4 (06:32→20:45)
[2017-02-26 06:44] LABS: ALANINE AMINOTRANSFERASE 13 U/L (16-63); ALKALINE PHOSPHATASE 104 U/L (50-136); ASPARTATE AMINOTRANSFERASE 6 U/L (15-37); BILIRUBIN,TOTAL 0.3 mg/dL (0.2-1.0); CARBON DIOXIDE 29 mmol/L (21-32); CHLORIDE 97 mmol/L (98-107); CREATININE 1.4 mg/dL (0.6-1.3); GLUCOSE 140 mg/dL (74-106); MAGNESIUM 1.9 mg/dL (1.8-2.4); PHOSPHOROUS 3.1 mg/dL (2.5-4.9); POTASSIUM 4.8 mmol/L (3.5-5.1); TOTAL PROTEIN, SERUM 6.6 g/dL (6.4-8.2); UREA NITROGEN, BLOOD 33 mg/dL (7-18)
[2017-02-26 07:18] LABS: BASOPHILS # (AUTO) 0.1 K/uL (0.0-8.0); BASOPHILS % (AUTO) 0.2 % (0.0-2.0); HEMATOCRIT 30.6 % (36.7-47.1); HEMOGLOBIN 9.8 g/dL (12.5-16.3); LYMPHOCYTES # (AUTO) 57.7 K/uL (20.0-40.0); LYMPHOCYTES % (AUTO) 76.2 % (20.5-51.5); MEAN CORPUSCULAR HEMOGLOBIN 26.3 uug (23.8-33.4); MEAN CORPUSCULAR HGB CONC 32 g/dL (32.5-36.3); MEAN CORPUSCULAR VOLUME 82.3 fL (73.0-96.2); MONOCYTES % (AUTO) 2.7 % (0.0-11.0); NEUTROPHILS # (AUTO) 15.8 K/uL (1.8-8.9); NEUTROPHILS % (AUTO) 20.9 % (38.5-71.5); PLATELET COUNT (AUTO) 299 K/uL (152-348); RED BLOOD CELL COUNT(AUTO) 3.72 MIL/uL (4.06-5.63)
[2017-02-26 07:22] LABS: WHITE BLOOD COUNT (AUTO) 75.6 K/uL (3.6-10.2)
[2017-02-26] MEDS: INSULIN REGULAR, HUMAN 300 UNIT/3 ML VIAL SQ PRN ×4 (07:34→20:48)
[2017-02-26 07:54] LABS: NEUTROPHILS % (MANUAL) 18 % (42-75)
[2017-02-26 07:58] LABS: LYMPHOCYTES % (MANUAL) 81 % (20-40); MONOCYTES % (MANUAL) 1 % (2-10)
[2017-02-26] MEDS ORDERED: MORPHINE SULFATE 4 MG/1 ML DISP.SYRIN IV PRN (08:00)
[2017-02-26] MEDS: FERROUS SULFATE 325 MG TABEC PO SCH (08:44)
[2017-02-26] MEDS: TOLTERODINE LA 2 MG CAP.SR.24H PO SCH (08:44)
[2017-02-26] MEDS: ACIDOPHILUS/BULGARICUS CHEW TAB PO SCH (08:44)
[2017-02-26] MEDS: TAMSULOSIN HCL 0.4 MG CAP.SR.24H PO SCH ×2 (08:44→20:51)
[2017-02-26] MEDS: PREGABALIN 100 MG CAPSULE PO SCH ×3 (08:45→16:35)
[2017-02-26] MEDS: DIVALPROEX SPRINKLE 125 MG CAP.SPRINK PO SCH ×3 (08:45→16:34)
[2017-02-26] MEDS: ASCORBIC ACID 500 MG TABLET PO SCH (08:45)
[2017-02-26] MEDS: DOCUSATE SODIUM 100 MG CAPSULE PO SCH (08:45)
[2017-02-26] MEDS: MULTIVIT, IRON, MIN NO. 8, FA TABLET PO SCH (08:45)
[2017-02-26] MEDS: AMLODIPINE 10 MG TABLET PO SCH (08:47)
[2017-02-26] MEDS: CARVEDILOL 6.25 MG TABLET PO SCH ×2 (08:47→18:00)
[2017-02-26] MEDS: ASPIRIN 81 MG TAB.CHEW PO SCH (08:48)
[2017-02-26] MEDS: PANTOPRAZOLE SODIUM 40 MG TABLET.DR PO SCH (08:51)
[2017-02-26] MEDS: NIACIN 500 MG TABLET PO SCH (08:51)
[2017-02-26] MEDS: INSULIN DETEMIR 300 UNIT/3 ML CARTRIDGE SQ SCH ×2 (08:56→20:46)
[2017-02-26] MEDS ORDERED: Medication Not On Formulary EA (Multivitamin With Minerals (One Daily Complete) 1 EACH) PO SCH (09:00)
[2017-02-26] MEDS ORDERED: Medication Not On Formulary EA (Meloxicam 15 MG) PO SCH (09:00)
[2017-02-26] MEDS ORDERED: NIACIN 250 MG PO SCH (09:00)
[2017-02-26] MEDS ORDERED: LISINOPRIL 5 MG TABLET PO SCH (09:00)
[2017-02-26] MEDS ORDERED: Medication Not On Formulary EA (Lactobacillus Acidophilus (Acidophilus) 1 EACH) PO SCH (09:00)
[2017-02-26] MEDS: IV 1/2NS 1000 ML 1,000 ML IV PRN (09:48)
[2017-02-26] MEDS: MELOXICAM 7.5 MG TABLET PO SCH (11:23)
[2017-02-26 11:31] VITALS: BP 108/48
[2017-02-26] MEDS: MEROPENEM 500 MG in IV NORMAL SALINE 50 ML IV SCH ×2 (12:20→23:38)
[2017-02-26 12:53] LABS: *BILIRUBIN,URIN NEGATIVE (NEGATIVE); *BLOOD, URINE Trace-intact (NEGATIVE); *CLARITY,URINE CLEAR (CLEAR); *COLOR,URINE YELLOW (YELLOW); *KETONES,URINE NEGATIVE (NEGATIVE); *PROTEIN,URINE 1+ (NEGATIVE); *UROBILINOGEN,URINE 0.2 E.U./dl (NORMAL); LEUKOCYTE ESTERASE ,URINE 3+ (NEGATIVE); NITRITE, URINE NEGATIVE (NEGATIVE); UGLUCOSE NEGATIVE (NEGATIVE)
[2017-02-26 12:59] LABS: *CREATININE,URINE 74.3 mg/dL (30-125); *URINE TOTAL PROTEIN RANDOM 38.5 mg/dL (<150/24HR)
[2017-02-26 13:26] LABS: BACTERIA,URINE FEW /HPF (NONE SEEN); SQUAMOUS EPITHELIAL CELL,UR FEW /HPF (NONE SEEN); WBC,URINE TNTC /HPF (0-3)
[2017-02-26] MEDS: ALBUTEROL SULFATE 2.5 MG/3 ML NEBU NEB SCH ×4 (15:14→22:31)
[2017-02-26 15:48] VITALS: BP 96/46
[2017-02-26 20:00] VITALS: BP 100/49
[2017-02-26] MEDS: TRAZODONE 100 MG TABLET PO SCH (20:51)
[2017-02-26] MEDS: DONEPEZIL 5 MG TABLET PO SCH (20:51)
[2017-02-26] MEDS: ATORVASTATIN 10 MG TABLET PO SCH (20:51)
[2017-02-26] MEDS: QUETIAPINE FUMARATE 25 MG TABLET PO SCH (20:51)
[2017-02-26] MEDS ORDERED: QUETIAPINE FUMARATE 25 MG PO SCH (21:00)
[2017-02-27] MEDS: IV 1/2NS 1000 ML 1,000 ML IV PRN ×2 (00:55→15:09)
[2017-02-27] MEDS: ALBUTEROL SULFATE 2.5 MG/3 ML NEBU NEB SCH ×6 (02:36→23:59)
[2017-02-27 04:00] VITALS: BP 127/62
[2017-02-27] MEDS: ACETAMINOPHEN 325 MG TABLET PO PRN (04:19)
[2017-02-27] MEDS: PANTOPRAZOLE SODIUM 40 MG TABLET.DR PO SCH (06:23)
[2017-02-27] MEDS: BLOOD SUGAR DIAGNOSTIC 1 EACH STRIP VI SCH ×4 (06:31→20:37)
[2017-02-27 07:10] LABS: ALANINE AMINOTRANSFERASE 10 U/L (16-63); ALKALINE PHOSPHATASE 85 U/L (50-136); ASPARTATE AMINOTRANSFERASE 8 U/L (15-37); BILIRUBIN,TOTAL 0.2 mg/dL (0.2-1.0); CARBON DIOXIDE 27 mmol/L (21-32); CHLORIDE 100 mmol/L (98-107); CREATININE 1.3 mg/dL (0.6-1.3); GLUCOSE 92 mg/dL (74-106); MAGNESIUM 1.6 mg/dL (1.8-2.4); PHOSPHOROUS 2.8 mg/dL (2.5-4.9); POTASSIUM 4.6 mmol/L (3.5-5.1); TOTAL PROTEIN, SERUM 5.9 g/dL (6.4-8.2); UREA NITROGEN, BLOOD 25 mg/dL (7-18)
[2017-02-27 07:33] LABS: BASOPHILS # (AUTO) 0.1 K/uL (0.0-8.0); EOSINOPHILS % (AUTO) 0.1 % (0.0-7.0); MEAN CORPUSCULAR HGB CONC 32 g/dL (32.5-36.3); MONOCYTES # (AUTO) 1.3 K/uL (2.0-10.0)
[2017-02-27 07:35] LABS: BASOPHILS % (AUTO) 0.1 % (0.0-2.0); HEMATOCRIT 27.9 % (36.7-47.1); LYMPHOCYTES # (AUTO) 46.5 K/uL (20.0-40.0); LYMPHOCYTES % (AUTO) 77.5 % (20.5-51.5); MEAN CORPUSCULAR HEMOGLOBIN 26.3 uug (23.8-33.4); MEAN CORPUSCULAR VOLUME 81.2 fL (73.0-96.2); MONOCYTES % (AUTO) 2.2 % (0.0-11.0); NEUTROPHILS % (AUTO) 20.1 % (38.5-71.5); PLATELET COUNT (AUTO) 276 K/uL (152-348); RED BLOOD CELL COUNT(AUTO) 3.44 MIL/uL (4.06-5.63)
[2017-02-27 07:43] LABS: WHITE BLOOD COUNT (AUTO) 59.9 K/uL (3.6-10.2)
[2017-02-27] MEDS: CARVEDILOL 6.25 MG TABLET PO SCH ×3 (08:00→19:07)
[2017-02-27] MEDS: PREGABALIN 100 MG CAPSULE PO SCH ×4 (09:00→19:07)
[2017-02-27] MEDS: ACIDOPHILUS/BULGARICUS CHEW TAB PO SCH ×2 (09:00→11:12)
[2017-02-27] MEDS: ASCORBIC ACID 500 MG TABLET PO SCH ×2 (09:00→11:12)
[2017-02-27] MEDS: DOCUSATE SODIUM 100 MG CAPSULE PO SCH ×2 (09:00→11:14)
[2017-02-27] MEDS: TAMSULOSIN HCL 0.4 MG CAP.SR.24H PO SCH ×3 (09:00→20:28)
[2017-02-27] MEDS: FERROUS SULFATE 325 MG TABEC PO SCH ×2 (09:00→11:13)
[2017-02-27] MEDS: DIVALPROEX SPRINKLE 125 MG CAP.SPRINK PO SCH ×4 (09:00→19:07)
[2017-02-27] MEDS: MULTIVIT, IRON, MIN NO. 8, FA TABLET PO SCH ×2 (09:00→11:13)
[2017-02-27] MEDS: ASPIRIN 81 MG TAB.CHEW PO SCH ×2 (09:00→11:11)
[2017-02-27] MEDS: MELOXICAM 7.5 MG TABLET PO SCH ×2 (09:00→10:59)
[2017-02-27] MEDS: NIACIN 500 MG TABLET PO SCH ×2 (09:00→11:16)
[2017-02-27] MEDS: TOLTERODINE LA 2 MG CAP.SR.24H PO SCH ×2 (09:00→11:01)
[2017-02-27] MEDS: INSULIN DETEMIR 300 UNIT/3 ML CARTRIDGE SQ SCH ×2 (09:00→20:55)
[2017-02-27] MEDS: AMLODIPINE 10 MG TABLET PO SCH ×2 (09:00→11:10)
[2017-02-27 10:54] VITALS: BP 121/58
[2017-02-27 11:09] LABS: BAND % (MANUAL) 1 % (0-10); LYMPHOCYTES % (MANUAL) 79 % (20-40); MONOCYTES % (MANUAL) 3 % (2-10); NEUTROPHILS % (MANUAL) 17 % (42-75)
[2017-02-27] MEDS: MEROPENEM 500 MG in IV NORMAL SALINE 50 ML IV SCH (12:25)
[2017-02-27] MEDS: MAGNESIUM SULFATE/D5W 100 ML IV SCH ×2 (15:07→16:41)
[2017-02-27 15:09] VITALS: BP 122/54
[2017-02-27] MEDS: INSULIN REGULAR, HUMAN 300 UNIT/3 ML VIAL SQ PRN ×2 (16:51→21:21)
[2017-02-27 19:00] VITALS: BP 138/60
[2017-02-27] MEDS: QUETIAPINE FUMARATE 25 MG TABLET PO SCH (20:27)
[2017-02-27] MEDS: TRAZODONE 100 MG TABLET PO SCH (20:27)
[2017-02-27] MEDS: ATORVASTATIN 10 MG TABLET PO SCH (20:27)
[2017-02-27] MEDS: DONEPEZIL 5 MG TABLET PO SCH (20:28)
[2017-02-28] MEDS: MEROPENEM 500 MG in IV NORMAL SALINE 50 ML IV SCH ×3 (01:18→23:23)
[2017-02-28] MEDS: ALBUTEROL SULFATE 2.5 MG/3 ML NEBU NEB SCH ×8 (03:00→23:03)
[2017-02-28] MEDS: PANTOPRAZOLE SODIUM 40 MG TABLET.DR PO SCH (06:11)
[2017-02-28] MEDS: BLOOD SUGAR DIAGNOSTIC 1 EACH STRIP VI SCH ×4 (07:12→20:35)
[2017-02-28 07:28] LABS: CARBON DIOXIDE 28 mmol/L (21-32); CHLORIDE 98 mmol/L (98-107); CREATININE 1.1 mg/dL (0.6-1.3); GLUCOSE 119 mg/dL (74-106); MAGNESIUM 2.1 mg/dL (1.8-2.4); PHOSPHOROUS 2.9 mg/dL (2.5-4.9); POTASSIUM 4.3 mmol/L (3.5-5.1); UREA NITROGEN, BLOOD 18 mg/dL (7-18)
[2017-02-28 07:32] LABS: BASOPHILS # (AUTO) 0.1 K/uL (0.0-8.0); BASOPHILS % (AUTO) 0.2 % (0.0-2.0); EOSINOPHILS # (AUTO) 0.2 K/uL (0.0-0.7); EOSINOPHILS % (AUTO) 0.4 % (0.0-7.0); HEMATOCRIT 26.9 % (36.7-47.1); HEMOGLOBIN 8.8 g/dL (12.5-16.3); LYMPHOCYTES # (AUTO) 41.3 K/uL (20.0-40.0); LYMPHOCYTES % (AUTO) 79.8 % (20.5-51.5); MEAN CORPUSCULAR HEMOGLOBIN 26.5 uug (23.8-33.4); MEAN CORPUSCULAR HGB CONC 33 g/dL (32.5-36.3); MEAN CORPUSCULAR VOLUME 80.7 fL (73.0-96.2); MONOCYTES # (AUTO) 1.7 K/uL (2.0-10.0); MONOCYTES % (AUTO) 3.2 % (0.0-11.0); NEUTROPHILS # (AUTO) 8.5 K/uL (1.8-8.9); NEUTROPHILS % (AUTO) 16.4 % (38.5-71.5); PLATELET COUNT (AUTO) 227 K/uL (152-348); RED BLOOD CELL COUNT(AUTO) 3.33 MIL/uL (4.06-5.63)
[2017-02-28 07:37] LABS: WHITE BLOOD COUNT (AUTO) 51.7 K/uL (3.6-10.2)
[2017-02-28] MEDS: PREGABALIN 100 MG CAPSULE PO SCH ×3 (08:12→16:31)
[2017-02-28] MEDS: MULTIVIT, IRON, MIN NO. 8, FA TABLET PO SCH (08:12)
[2017-02-28] MEDS: FERROUS SULFATE 325 MG TABEC PO SCH (08:12)
[2017-02-28] MEDS: CARVEDILOL 6.25 MG TABLET PO SCH ×2 (08:12→17:10)
[2017-02-28] MEDS: DIVALPROEX SPRINKLE 125 MG CAP.SPRINK PO SCH ×3 (08:12→16:31)
[2017-02-28] MEDS: TAMSULOSIN HCL 0.4 MG CAP.SR.24H PO SCH ×2 (08:12→20:44)
[2017-02-28] MEDS: DOCUSATE SODIUM 100 MG CAPSULE PO SCH (08:12)
[2017-02-28] MEDS: ACIDOPHILUS/BULGARICUS CHEW TAB PO SCH (08:12)
[2017-02-28] MEDS: ASCORBIC ACID 500 MG TABLET PO SCH (08:12)
[2017-02-28] MEDS: MELOXICAM 7.5 MG TABLET PO SCH (08:12)
[2017-02-28] MEDS: ASPIRIN 81 MG TAB.CHEW PO SCH (08:12)
[2017-02-28] MEDS: AMLODIPINE 10 MG TABLET PO SCH (08:13)
[2017-02-28] MEDS: TOLTERODINE LA 2 MG CAP.SR.24H PO SCH (08:13)
[2017-02-28 08:17] LABS: BAND % (MANUAL) 1 % (0-10); EOSINOPHILS % (MANUAL) 2 % (0-8); LYMPHOCYTES % (MANUAL) 78 % (20-40); MONOCYTES % (MANUAL) 5 % (2-10); NEUTROPHILS % (MANUAL) 14 % (42-75)
[2017-02-28] MEDS: NIACIN 500 MG TABLET PO SCH (08:17)
[2017-02-28] MEDS: INSULIN DETEMIR 300 UNIT/3 ML CARTRIDGE SQ SCH ×2 (08:59→20:37)
[2017-02-28] MEDS: IV 1/2NS 1000 ML 1,000 ML IV PRN (10:49)
[2017-02-28 11:14] VITALS: BP 100/48
[2017-02-28] MEDS: INSULIN REGULAR, HUMAN 300 UNIT/3 ML VIAL SQ PRN ×3 (12:09→20:38)
[2017-02-28 15:16] VITALS: BP 110/55
[2017-02-28] MEDS: DONEPEZIL 5 MG TABLET PO SCH (20:38)
[2017-02-28] MEDS: ATORVASTATIN 10 MG TABLET PO SCH (20:38)
[2017-02-28] MEDS: QUETIAPINE FUMARATE 25 MG TABLET PO SCH (20:38)
[2017-02-28 20:41] VITALS: BP 107/56
[2017-02-28] MEDS: TRAZODONE 100 MG TABLET PO SCH (20:44)
[2017-02-28] MEDS ORDERED: LORAZEPAM 2 MG/1 ML VIAL IV ONE (22:45)
[2017-02-28] MEDS ORDERED: LORAZEPAM 2 MG/1 ML VIAL ONE (23:06)
[2017-03-01] MEDS: ALBUTEROL SULFATE 2.5 MG/3 ML NEBU NEB SCH ×5 (03:30→19:30)
[2017-03-01 04:31] VITALS: BP 129/62
[2017-03-01] MEDS: PANTOPRAZOLE SODIUM 40 MG TABLET.DR PO SCH (06:22)
[2017-03-01] MEDS: BLOOD SUGAR DIAGNOSTIC 1 EACH STRIP VI SCH ×4 (06:27→20:12)
[2017-03-01] MEDS: INSULIN DETEMIR 300 UNIT/3 ML CARTRIDGE SQ SCH (09:22)
[2017-03-01] MEDS: TAMSULOSIN HCL 0.4 MG CAP.SR.24H PO SCH ×2 (09:23→20:12)
[2017-03-01] MEDS: INSULIN REGULAR, HUMAN 300 UNIT/3 ML VIAL SQ PRN ×4 (09:23→20:15)
[2017-03-01] MEDS: ASCORBIC ACID 500 MG TABLET PO SCH (09:23)
[2017-03-01] MEDS: DIVALPROEX SPRINKLE 125 MG CAP.SPRINK PO SCH ×3 (09:24→17:17)
[2017-03-01] MEDS: ASPIRIN 81 MG TAB.CHEW PO SCH (09:24)
[2017-03-01] MEDS: FERROUS SULFATE 325 MG TABEC PO SCH (09:24)
[2017-03-01] MEDS: DOCUSATE SODIUM 100 MG CAPSULE PO SCH (09:24)
[2017-03-01] MEDS: ACIDOPHILUS/BULGARICUS CHEW TAB PO SCH (09:24)
[2017-03-01] MEDS: PREGABALIN 100 MG CAPSULE PO SCH ×3 (09:24→17:16)
[2017-03-01] MEDS: NIACIN 500 MG TABLET PO SCH (09:24)
[2017-03-01] MEDS: MELOXICAM 7.5 MG TABLET PO SCH (09:24)
[2017-03-01] MEDS: MULTIVIT, IRON, MIN NO. 8, FA TABLET PO SCH (09:24)
[2017-03-01] MEDS: TOLTERODINE LA 2 MG CAP.SR.24H PO SCH (09:25)
[2017-03-01] MEDS: CARVEDILOL 6.25 MG TABLET PO SCH ×2 (09:28→17:17)
[2017-03-01] MEDS: AMLODIPINE 10 MG TABLET PO SCH (09:28)
[2017-03-01 11:25] VITALS: BP 135/60
[2017-03-01] MEDS ORDERED: LORAZEPAM 2 MG/1 ML VIAL IV PRN (12:15)
[2017-03-01] MEDS ORDERED: ZIPRASIDONE MESYLATE 20 MG VIAL IM ONE (13:30)
[2017-03-01] MEDS: MEROPENEM 500 MG in IV NORMAL SALINE 50 ML IV SCH (15:04)
[2017-03-01 15:34] VITALS: BP 136/52
[2017-03-01 16:31] LABS: BASOPHILS # (AUTO) 0.1 K/uL (0.0-8.0)
[2017-03-01] MEDS ORDERED: MERO500V IV (16:32)
[2017-03-01] MEDS ORDERED: INSU100I19 SQ (16:32)
[2017-03-01] MEDS ORDERED: CRAN450T9 PO (16:32)
[2017-03-01] MEDS ORDERED: NITR50CA4 PO (16:32)
[2017-03-01 16:40] LABS: HEMATOCRIT 26.5 % (36.7-47.1); MONOCYTES # (AUTO) 1.1 K/uL (2.0-10.0); MONOCYTES % (AUTO) 2.2 % (0.0-11.0)
[2017-03-01 16:43] LABS: BASOPHILS % (AUTO) 0.2 % (0.0-2.0); EOSINOPHILS # (AUTO) 0.5 K/uL (0.0-0.7); HEMOGLOBIN 8.6 g/dL (12.5-16.3); LYMPHOCYTES # (AUTO) 43.3 K/uL (20.0-40.0); LYMPHOCYTES % (AUTO) 83.4 % (20.5-51.5); MEAN CORPUSCULAR HGB CONC 32 g/dL (32.5-36.3); MEAN CORPUSCULAR VOLUME 80.5 fL (73.0-96.2); NEUTROPHILS # (AUTO) 6.8 K/uL (1.8-8.9); NEUTROPHILS % (AUTO) 13.2 % (38.5-71.5); PLATELET COUNT (AUTO) 248 K/uL (152-348)
[2017-03-01 16:56] LABS: ALANINE AMINOTRANSFERASE 14 U/L (16-63); ALKALINE PHOSPHATASE 92 U/L (50-136); ASPARTATE AMINOTRANSFERASE 11 U/L (15-37); BILIRUBIN,TOTAL 0.2 mg/dL (0.2-1.0); CARBON DIOXIDE 31 mmol/L (21-32); CHLORIDE 99 mmol/L (98-107); CREATININE 1.1 mg/dL (0.6-1.3); GLUCOSE 205 mg/dL (74-106); MAGNESIUM 1.8 mg/dL (1.8-2.4); PHOSPHOROUS 2.3 mg/dL (2.5-4.9); POTASSIUM 3.8 mmol/L (3.5-5.1); TOTAL PROTEIN, SERUM 6.3 g/dL (6.4-8.2); UREA NITROGEN, BLOOD 19 mg/dL (7-18)
[2017-03-01 17:08] LABS: WHITE BLOOD COUNT (AUTO) 51.8 K/uL (3.6-10.2)
[2017-03-01 17:17] VITALS: BP 137/55
[2017-03-01 18:18] LABS: EOSINOPHILS % (MANUAL) 1 % (0-8); LYMPHOCYTES % (MANUAL) 86 % (20-40); MONOCYTES % (MANUAL) 3 % (2-10); NEUTROPHILS % (MANUAL) 10 % (42-75)
[2017-03-01] MEDS: DONEPEZIL 5 MG TABLET PO SCH (20:12)
[2017-03-01] MEDS: QUETIAPINE FUMARATE 25 MG TABLET PO SCH (20:12)
[2017-03-01] MEDS: ATORVASTATIN 10 MG TABLET PO SCH (20:12)
[2017-03-01] MEDS: TRAZODONE 100 MG TABLET PO SCH (20:12)
[2017-03-01] MEDS ORDERED: INSULIN DETEMIR 300 UNIT/3 ML CARTRIDGE SQ SCH (21:00)
== END 2017-03-01 20:55 | DRG 871 ==
LOC: ER 21:08 → TELE 22:20 → MED 02-26 14:40
PROVIDERS: ADMIT Internal Medicine; ATTEND Internal Medicine
PROC: 05H533Z Insertion of Infusion Device into Right Subclavian Vein, Percutaneous Approach (ICD-10-PCS; principal; 2017-03-01)
DX: A41.51 Sepsis due to Escherichia coli [E. coli] (principal); G92 Toxic encephalopathy; N17.0 Acute kidney failure with tubular necrosis; E11.22 Type 2 diabetes mellitus with diabetic chronic kidney disease; D68.59 Other primary thrombophilia; C91.10 Chronic lymphocytic leukemia of B-cell type not having achieved remission; I13.0 Hypertensive heart and chronic kidney disease with heart failure and stage 1 through stage 4 chronic kidney disease, or unspecified chronic kidney disease; I50.42 Chronic combined systolic (congestive) and diastolic (congestive) heart failure; N39.0 Urinary tract infection, site not specified; E87.1 Hypo-osmolality and hyponatremia; E11.65 Type 2 diabetes mellitus with hyperglycemia; Z16.12 Extended spectrum beta lactamase (ESBL) resistance; N18.9 Chronic kidney disease, unspecified; Z79.4 Long term (current) use of insulin; Z79.82 Long term (current) use of aspirin; Z79.899 Other long term (current) drug therapy; I25.5 Ischemic cardiomyopathy; F02.80 Dementia in other diseases classified elsewhere, unspecified severity, without behavioral disturbance, psychotic disturbance, mood disturbance, and anxiety; Z87.440 Personal history of urinary (tract) infections; Z85.118 Personal history of other malignant neoplasm of bronchus and lung; N40.0 Benign prostatic hyperplasia without lower urinary tract symptoms; I44.7 Left bundle-branch block, unspecified; G30.9 Alzheimer's disease, unspecified; G20 Parkinson's disease; E87.5 Hyperkalemia; E78.5 Hyperlipidemia, unspecified; M48.061 Spinal stenosis, lumbar region without neurogenic claudication; I25.2 Old myocardial infarction; I25.10 Atherosclerotic heart disease of native coronary artery without angina pectoris; F06.8 Other specified mental disorders due to known physiological condition; Z74.09 Other reduced mobility; D63.0 Anemia in neoplastic disease; R97.20 Elevated prostate specific antigen [PSA]
CPT/HCPCS: 36415; 70030-TC; 71045; 83605; 83690; 83735; 84100; 84156; 84300; 85025; 85730; 87040; 87077; 87086; 87400; 93005; 94640; 94664; A4663; J1815; J1940; J2060; J2185; J3475; J3486; J3490; J7030

== ENCOUNTER 2017-04-07 22:13 | Inpatient (IN) | payer MEDICARE, MEDICAID ==
[~2017-04-07] VITALS: Ht 157.5 cm; Wt 28.6 kg
--- NOTE | 2017-04-07 19:15 | NUR ---
RECEIVED PT AWAKE, ALERT, ORIENTEDX3. PT IV INTACT AND PATENT. PT SHOWS NO SIGNS OF DISTRESS. CALL LIGHT WITHIN REACH. BED ALARM ON. BED POSITION LOW. WILL CONTINUE TO MONITOR. Addendum: 04/08/17 at 0252 by NIRALI ZALDIVAR RN WRONG PATIENT
[~2017-04-07 22:13] MED LIST changes: +CRAN450T9 PO; -FERR-58 PO; +FERR325T24 PO; +NITR50CA4 PO
[2017-04-07] MEDS ORDERED: IV NORMAL SALINE 1000 ML BAG IV ONE (22:45)
[2017-04-07 22:57] LABS: BASOPHILS # (AUTO) 0.2 K/uL (0.0-8.0); BASOPHILS % (AUTO) 0.3 % (0.0-2.0); EOSINOPHILS # (AUTO) 0.4 K/uL (0.0-0.7); EOSINOPHILS % (AUTO) 0.8 % (0.0-7.0); HEMATOCRIT 27.2 % (36.7-47.1); HEMOGLOBIN 8.6 g/dL (12.5-16.3); LYMPHOCYTES # (AUTO) 43.5 K/uL (20.0-40.0); LYMPHOCYTES % (AUTO) 77.7 % (20.5-51.5); MEAN CORPUSCULAR HEMOGLOBIN 26.2 uug (23.8-33.4); MEAN CORPUSCULAR HGB CONC 32 g/dL (32.5-36.3); MEAN CORPUSCULAR VOLUME 83.1 fL (73.0-96.2); MONOCYTES # (AUTO) 1.4 K/uL (2.0-10.0); MONOCYTES % (AUTO) 2.5 % (0.0-11.0); NEUTROPHILS # (AUTO) 10.4 K/uL (1.8-8.9); NEUTROPHILS % (AUTO) 18.7 % (38.5-71.5); PLATELET COUNT (AUTO) 243 K/uL (152-348); RED BLOOD CELL COUNT(AUTO) 3.28 MIL/uL (4.06-5.63)
[2017-04-07 23:06] LABS: CARBON DIOXIDE 30 mmol/L (21-32); CHLORIDE 93 mmol/L (98-107); CREATININE 1.2 mg/dL (0.6-1.3); GLUCOSE 136 mg/dL (74-106); POTASSIUM 4.6 mmol/L (3.5-5.1); UREA NITROGEN, BLOOD 32 mg/dL (7-18)
[2017-04-07] MEDS ORDERED: INSU100V10 SQ (23:08)
[2017-04-07] MEDS ORDERED: DICY10CA13 PO (23:08)
[2017-04-07 23:12] LABS: WHITE BLOOD COUNT (AUTO) 55.8 K/uL (3.6-10.2)
[2017-04-07 23:18] LABS: ALANINE AMINOTRANSFERASE 14 U/L (16-63); ALKALINE PHOSPHATASE 79 U/L (50-136); ASPARTATE AMINOTRANSFERASE 11 U/L (15-37); BILIRUBIN,DIRECT 0.1 mg/dL (0.0-0.2); BILIRUBIN,TOTAL 0.3 mg/dL (0.2-1.0); TOTAL PROTEIN, SERUM 5.9 g/dL (6.4-8.2)
--- NOTE | 2017-04-07 23:29 | NUR ---
PT IN BED. SON AT BEDSIDE. BREATH SOUNDS ARE REGULAR AND UNLABORED. BED IS IN LOWEST POSITION W/ BEDRAILS UP. CALL LIGHT IN REACH.
--- NOTE | 2017-04-07 23:37 | NUR ---
PT IN BED. SON LEAVES ER.
--- NOTE | 2017-04-07 23:42 | NUR ---
PHONE CALL FROM MD RAMOS TO MD PEREYRA. DECISION MADE TO ADMIT TO HOSPITAL.
[2017-04-08] LABS: EOSINOPHILS % (MANUAL) 1 % (0-8); LYMPHOCYTES % (MANUAL) 60 % (20-40); METAMYELOCYTES % 1 % (0-1); NEUTROPHILS % (MANUAL) 14 % (42-75)
--- NOTE | 2017-04-08 00:15 | NUR ---
PT IN BED. VSS. BREATH SOUNDS REGULAR AND UNLABORED. NO SIGNS OF DISTRESS WITNESSED AT THIS TIME.
--- NOTE | 2017-04-08 00:27 | NUR ---
REPORT GIVEN TO GREER ROBLERO IN TELE.
--- NOTE | 2017-04-08 01:15 | NUR ---
Received pt from ER by kayleigh mcclendon. Pt is asleep. Pt admitted to Tele. under the care of Dr. Nguyễn.belonging list done. Admission process and Care plan initiated. new admisiion. non-verbal and drowsy pt. uncooperative pt. combative pt. call light within reach. side rails up and bed in low position. will continue to monitor.
[2017-04-08] MEDS ORDERED: BISACODYL 10 MG SUPP.RECT RC PRN (02:00)
[2017-04-08] MEDS ORDERED: ACETAMINOPHEN 650 MG SUPP.RECT RC PRN (02:00)
[2017-04-08] MEDS ORDERED: MORPHINE SULFATE 4 MG/1 ML DISP.SYRIN IV PRN (02:00)
[2017-04-08] MEDS ORDERED: ALBUTEROL SULFATE 2.5 MG/3 ML NEBU IH PRN (02:00)
[2017-04-08] MEDS ORDERED: ONDANSETRON 4 MG/2 ML VIAL IV PRN (02:00)
[2017-04-08] MEDS: ZIPRASIDONE MESYLATE 20 MG VIAL IM PRN (03:07)
--- NOTE | 2017-04-08 03:07 | NUR ---
PT COMBATIVE AND AGITATED. GIVEN APRIL PRN.
[2017-04-08] MEDS: IV D5/ 0.9% NACL 1,000 ML IV PRN (04:17)
--- NOTE | 2017-04-08 06:55 | NUR ---
PT COMBATIVE. DOESN'T WANT TO PUT THE IV ON HIM. WILL ENDORSE TO DAYSHIFT NURSE.
[2017-04-08 06:59] VITALS: BP 133/56
--- NOTE | 2017-04-08 07:30 | NUR ---
IV line to left wrist infiltrated swollen and leaking. . notified after multiple attempts to insert new IV. Orders for Midline received.
[2017-04-08 08:00] VITALS: BP 133/58
[2017-04-08] MEDS ORDERED: MEROPENEM 1 G in IV NORMAL SALINE 100 ML IV SCH (09:00)
[2017-04-08 11:12] VITALS: BP 126/50
[2017-04-08] MEDS: FAMOTIDINE. 20 MG/2 ML VIAL IV SCH ×2 (14:35→23:09)
--- NOTE | 2017-04-08 14:41 | NUR ---
Late administration of antibiotics due to no iv access. Pharmacist notified.
[2017-04-08 22:00] VITALS: BP 135/60
[2017-04-09 01:00] VITALS: BP 113/59
[2017-04-09] MEDS: MEROPENEM 1 G in IV NORMAL SALINE 100 ML IV SCH ×2 (01:32→14:45)
[2017-04-09 05:30] VITALS: BP 141/60
[2017-04-09 07:24] LABS: BASOPHILS # (AUTO) 0.1 K/uL (0.0-8.0); BASOPHILS % (AUTO) 0.2 % (0.0-2.0); EOSINOPHILS # (AUTO) 0.2 K/uL (0.0-0.7); EOSINOPHILS % (AUTO) 0.4 % (0.0-7.0); HEMATOCRIT 28.3 % (36.7-47.1); HEMOGLOBIN 9.1 g/dL (12.5-16.3); LYMPHOCYTES # (AUTO) 38.9 K/uL (20.0-40.0); LYMPHOCYTES % (AUTO) 79.9 % (20.5-51.5); MEAN CORPUSCULAR HEMOGLOBIN 26.9 uug (23.8-33.4); MEAN CORPUSCULAR HGB CONC 32 g/dL (32.5-36.3); MEAN CORPUSCULAR VOLUME 83.8 fL (73.0-96.2); MONOCYTES # (AUTO) 1.1 K/uL (2.0-10.0); MONOCYTES % (AUTO) 2.3 % (0.0-11.0); NEUTROPHILS # (AUTO) 8.4 K/uL (1.8-8.9); NEUTROPHILS % (AUTO) 17.2 % (38.5-71.5); PLATELET COUNT (AUTO) 236 K/uL (152-348); RED BLOOD CELL COUNT(AUTO) 3.37 MIL/uL (4.06-5.63)
[2017-04-09 07:35] LABS: ALANINE AMINOTRANSFERASE 14 U/L (16-63); ALKALINE PHOSPHATASE 81 U/L (50-136); ASPARTATE AMINOTRANSFERASE 16 U/L (15-37); BILIRUBIN,TOTAL 0.2 mg/dL (0.2-1.0); CARBON DIOXIDE 27 mmol/L (21-32); CHLORIDE 99 mmol/L (98-107); GLUCOSE 165 mg/dL (74-106); MAGNESIUM 1.5 mg/dL (1.8-2.4); PHOSPHOROUS 2.6 mg/dL (2.5-4.9); POTASSIUM 4.2 mmol/L (3.5-5.1); TOTAL PROTEIN, SERUM 6.3 g/dL (6.4-8.2); UREA NITROGEN, BLOOD 13 mg/dL (7-18)
[2017-04-09 07:36] LABS: WHITE BLOOD COUNT (AUTO) 48.6 K/uL (3.6-10.2)
[2017-04-09 08:49] LABS: LYMPHOCYTES % (MANUAL) 83 % (20-40); MONOCYTES % (MANUAL) 3 % (2-10); NEUTROPHILS % (MANUAL) 14 % (42-75)
[2017-04-09 09:14] VITALS: BP 146/58
[2017-04-09] MEDS: FAMOTIDINE. 20 MG/2 ML VIAL IV SCH ×2 (09:58→20:58)
--- NOTE | 2017-04-09 10:00 | NUR ---
Nurse Notes: 1000am Dr Estrada was notified, patient has medication reconciliation list completed, need home medications ordered. 1100: Dr Ricardo Worrell ordered, seroquel po now and HS. Patient is restless due to skipping seroquel. also ativan 1 mg is ordered
[2017-04-09] MEDS ORDERED: LORAZEPAM 1 MG TABLET PO STA (11:31)
[2017-04-09] MEDS ORDERED: QUETIAPINE FUMARATE 25 MG TABLET PO ONE (11:45)
[2017-04-09] MEDS ORDERED: LORAZEPAM 1 MG TABLET PO ONE (11:45)
[2017-04-09 11:54] LABS: *BILIRUBIN,URIN NEGATIVE (NEGATIVE); *BLOOD, URINE NEGATIVE (NEGATIVE); *CLARITY,URINE CLEAR (CLEAR); *COLOR,URINE YELLOW (YELLOW); *KETONES,URINE NEGATIVE (NEGATIVE); *PROTEIN,URINE NEGATIVE (NEGATIVE); *UROBILINOGEN,URINE 0.2 E.U./dl (NORMAL); LEUKOCYTE ESTERASE ,URINE NEGATIVE (NEGATIVE); NITRITE, URINE NEGATIVE (NEGATIVE); PH,URINE 7.5 (5.0-8.0)
[2017-04-09 12:18] LABS: UGLUCOSE 2+ (NEGATIVE)
[2017-04-09 12:20] LABS: BACTERIA,URINE NONE SEEN /HPF (NONE SEEN); RBC,URINE 0-3 /HPF (0-3); SQUAMOUS EPITHELIAL CELL,UR FEW /HPF (NONE SEEN)
[2017-04-09] MEDS ORDERED: BLOOD SUGAR DIAGNOSTIC 1 EACH STRIP VI SCH ×2 (12:45→13:00)
[2017-04-09] MEDS: MAGNESIUM SULFATE/D5W 100 ML IV SCH ×2 (12:59→16:33)
[2017-04-09] MEDS ORDERED: INSULIN REGULAR, HUMAN 300 UNITS/3 ML VIAL SQ PRN (13:00)
[2017-04-09] MEDS ORDERED: DEXTROSE 50% 50 ML DISP.SYRIN IV PRN (13:00)
[2017-04-09] MEDS: BLOOD SUGAR DIAGNOSTIC 1 EACH STRIP VI SCH ×3 (13:14→21:06)
[2017-04-09] MEDS: INSULIN REGULAR, HUMAN 300 UNIT/3 ML VIAL SQ PRN (13:18)
[2017-04-09] MEDS: IV D5/ 0.9% NACL 1,000 ML IV PRN (14:58)
--- NOTE | 2017-04-09 17:44 | NUR ---
1740: Patient is MRSA, Dr Estrada ordered Mupirocin, medication for MRSA. Dr Ricardo Gardiner stated Dr Estrada is covering patient.
[2017-04-09] MEDS ORDERED: DICYCLOMINE HCL 10 MG CAPSULE PO PRN (18:45)
[2017-04-09] MEDS ORDERED: MIRALAX 17 GM POWD.PACK PO PRN (18:45)
[2017-04-09] MEDS ORDERED: HYDROCODONE/APAP 5-325MG TABLET PO PRN (18:45)
[2017-04-09 19:20] VITALS: BP 131/57
[2017-04-09] MEDS: DIVALPROEX SPRINKLE 125 MG CAP.SPRINK PO SCH (19:26)
[2017-04-09] MEDS: PREGABALIN 100 MG CAPSULE PO SCH (19:26)
[2017-04-09] MEDS: PANTOPRAZOLE SODIUM 40 MG TABLET.DR PO SCH (19:26)
[2017-04-09] MEDS: LORAZEPAM 1 MG TABLET PO SCH (19:26)
--- NOTE | 2017-04-09 19:30 | NUR ---
Received patient laying comfortably in bed. Son at bedside, sitter at bedside. No acute distress noted. HOB elevated. A&O x 1. Farsi speaking with little Egyptian. IVF infusing. Contact Isolation for MRSA of the Nares. No behavioral problems at the moment. Safety initiated. Call light within reach. Will continue to monitor.
[2017-04-09] MEDS: MUPIROCIN 2% OINT 22 GM TUBE NS SCH (20:58)
[2017-04-09] MEDS: ATORVASTATIN 10 MG TABLET PO SCH (20:58)
[2017-04-09] MEDS: TRAZODONE 100 MG TABLET PO SCH (20:58)
[2017-04-09] MEDS: QUETIAPINE FUMARATE 25 MG TABLET PO SCH (20:58)
[2017-04-09] MEDS: DONEPEZIL 5 MG TABLET PO SCH (20:58)
[2017-04-09] MEDS ORDERED: QUETIAPINE FUMARATE 25 MG PO SCH (21:00)
[2017-04-10] MEDS: MEROPENEM 1 G in IV NORMAL SALINE 100 ML IV SCH ×2 (02:02→13:54)
[2017-04-10 04:20] VITALS: BP 141/63
--- NOTE | 2017-04-10 05:52 | NUR ---
Patient slept t/o shift. No acute distress noted. Sitter at bedside. Patient was aggressive when medication administration. However, he is re-directable. Compliant with medications. Noted old scratches on the right upper arm. Skin remains intact. Safety and comfort measures maintained t/o shift. Turn and repositioned Q2H. Vital signs stable. No temperature. All meds given as ordered. All needs met.
[2017-04-10] MEDS: BLOOD SUGAR DIAGNOSTIC 1 EACH STRIP VI SCH ×4 (06:32→20:55)
[2017-04-10 07:35] LABS: CARBON DIOXIDE 25 mmol/L (21-32); CHLORIDE 102 mmol/L (98-107); CREATININE 1.1 mg/dL (0.6-1.3); GLUCOSE 171 mg/dL (74-106); MAGNESIUM 2.1 mg/dL (1.8-2.4); UREA NITROGEN, BLOOD 11 mg/dL (7-18)
[2017-04-10] MEDS: INSULIN REGULAR, HUMAN 300 UNIT/3 ML VIAL SQ PRN ×3 (07:59→20:50)
[2017-04-10 08:00] VITALS: BP 159/78
[2017-04-10] MEDS: LISINOPRIL 5 MG TABLET PO SCH (08:00)
[2017-04-10] MEDS: FAMOTIDINE. 20 MG/2 ML VIAL IV SCH (08:00)
[2017-04-10] MEDS: LORAZEPAM 1 MG TABLET PO SCH ×4 (08:01→16:35)
[2017-04-10] MEDS: MULTIVIT, IRON, MIN NO. 8, FA TABLET PO SCH (08:01)
[2017-04-10] MEDS: PREGABALIN 100 MG CAPSULE PO SCH ×4 (08:01→16:35)
[2017-04-10] MEDS: ACIDOPHILUS/BULGARICUS CHEW TAB PO SCH (08:01)
[2017-04-10] MEDS: TOLTERODINE LA 2 MG CAP.SR.24H PO SCH (08:01)
[2017-04-10] MEDS: ASPIRIN 81 MG TAB.CHEW PO SCH (08:01)
[2017-04-10] MEDS: AMLODIPINE 10 MG TABLET PO SCH (08:01)
[2017-04-10] MEDS: DOCUSATE SODIUM 100 MG CAPSULE PO SCH (08:01)
[2017-04-10] MEDS: DIVALPROEX SPRINKLE 125 MG CAP.SPRINK PO SCH ×4 (08:02→16:35)
[2017-04-10] MEDS: PANTOPRAZOLE SODIUM 40 MG TABLET.DR PO SCH (08:02)
[2017-04-10] MEDS: FERROUS SULFATE 325 MG TABEC PO SCH ×2 (08:02→16:35)
[2017-04-10] MEDS: CARVEDILOL 6.25 MG TABLET PO SCH ×2 (08:02→17:56)
[2017-04-10] MEDS: ASCORBIC ACID 500 MG TABLET PO SCH (08:02)
[2017-04-10] MEDS: TAMSULOSIN HCL 0.4 MG CAP.SR.24H PO SCH ×2 (08:02→16:35)
[2017-04-10] MEDS: MELOXICAM 7.5 MG TABLET PO SCH (08:02)
[2017-04-10 08:43] LABS: BASOPHILS # (AUTO) 0.1 K/uL (0.0-8.0); BASOPHILS % (AUTO) 0.3 % (0.0-2.0); EOSINOPHILS # (AUTO) 0.4 K/uL (0.0-0.7); EOSINOPHILS % (AUTO) 0.9 % (0.0-7.0); HEMATOCRIT 29.9 % (36.7-47.1); HEMOGLOBIN 9.7 g/dL (12.5-16.3); LYMPHOCYTES # (AUTO) 32.4 K/uL (20.0-40.0); LYMPHOCYTES % (AUTO) 79.1 % (20.5-51.5); MEAN CORPUSCULAR HEMOGLOBIN 26.9 uug (23.8-33.4); MEAN CORPUSCULAR HGB CONC 32 g/dL (32.5-36.3); MEAN CORPUSCULAR VOLUME 82.9 fL (73.0-96.2); MONOCYTES # (AUTO) 1.2 K/uL (2.0-10.0); NEUTROPHILS # (AUTO) 6.8 K/uL (1.8-8.9); NEUTROPHILS % (AUTO) 16.7 % (38.5-71.5); PLATELET COUNT (AUTO) 235 K/uL (152-348); RED BLOOD CELL COUNT(AUTO) 3.61 MIL/uL (4.06-5.63)
[2017-04-10 08:45] LABS: WHITE BLOOD COUNT (AUTO) 40.9 K/uL (3.6-10.2)
[2017-04-10] MEDS ORDERED: Medication Not On Formulary EA (Cranberry Fruit (Cranberry) 450 MG) PO SCH (09:00)
[2017-04-10] MEDS ORDERED: NIACIN 250 MG PO SCH (09:00)
[2017-04-10] MEDS ORDERED: Medication Not On Formulary EA (Meloxicam 15 MG) PO SCH (09:00)
[2017-04-10] MEDS ORDERED: Medication Not On Formulary EA (Lactobacillus Acidophilus (Acidophilus) 1 EACH) PO SCH (09:00)
[2017-04-10] MEDS ORDERED: Medication Not On Formulary EA (Multivitamin With Minerals (One Daily Complete) 1 EACH) PO SCH (09:00)
[2017-04-10] MEDS: NIACIN 500 MG TABLET PO SCH (09:37)
[2017-04-10] MEDS: MUPIROCIN 2% OINT 22 GM TUBE NS SCH ×2 (09:37→20:39)
[2017-04-10 10:29] LABS: LYMPHOCYTES % (MANUAL) 80 % (20-40); NEUTROPHILS % (MANUAL) 17 % (42-75)
[2017-04-10 10:30] LABS: MONOCYTES % (MANUAL) 3 % (2-10)
[2017-04-10 11:36] VITALS: BP 125/40
[2017-04-10 14:18] VITALS: BP 143/50
[2017-04-10 16:00] VITALS: BP 130/57
[2017-04-10] MEDS ORDERED: LINA145C PO (18:39)
[2017-04-10 19:30] VITALS: BP 129/53
--- NOTE | 2017-04-10 19:30 | NUR ---
PT IN ROOM ALERT, CONFUSED, AND AWAKE IN NO ACUTE DISTRESS. SITTER AT BEDSIDE. NO S/S OF INCREASED AGITATION OR ABNORMAL BEHAVIOR. NO S/S OF HYPER/HYPOGLYCEMIA. NO REACTION TO RECENT IV THERAPY ABX MERREM. SITTER AT BEDSIDE. BED ALARM ON AND MAINTAINING CONTACT ISOLATION. CONTINUE TO MONITOR. V/S ARE WNL.
[2017-04-10] MEDS: ATORVASTATIN 10 MG TABLET PO SCH (20:37)
[2017-04-10] MEDS: TRAZODONE 100 MG TABLET PO SCH (20:38)
[2017-04-10] MEDS: QUETIAPINE FUMARATE 25 MG TABLET PO SCH (20:38)
[2017-04-10] MEDS: DONEPEZIL 5 MG TABLET PO SCH (20:38)
[2017-04-10] MEDS: FAMOTIDINE 20 MG TABLET PO SCH (20:38)
--- NOTE | 2017-04-11 01:00 | NUR ---
PT ASLEEP AT THIS TIME WITH NO S/S OF AGITATION OR INCREASED CONFUSION. CONTINUE TO MONITOR. SITTER AT BEDSIDE.
[2017-04-11] MEDS: MEROPENEM 1 G in IV NORMAL SALINE 100 ML IV SCH (01:30)
[2017-04-11 05:00] VITALS: BP 113/54
--- NOTE | 2017-04-11 05:00 | NUR ---
PT IN ROOM ASLEEP IN NO ACUTE DISTRESS. ABLE TO SLEEP UP TO 7 HRS WITHOUT DIFFICULTY. NO S/S OF HYPER/HYPOGLYCEMIA. PT NEEDS MONITORING FOR SAFETY PRECAUTION AND ASSISTANCE. NO REACTION TO RECENT IV ABX MERREM THERAPY. CONTINUE TO MONITOR. SITTER AT BEDSIDE.
[2017-04-11] MEDS: BLOOD SUGAR DIAGNOSTIC 1 EACH STRIP VI SCH ×2 (06:59→11:27)
[2017-04-11 07:15] LABS: BASOPHILS # (AUTO) 0.2 K/uL (0.0-8.0)
[2017-04-11 07:17] LABS: BASOPHILS % (AUTO) 0.5 % (0.0-2.0); EOSINOPHILS # (AUTO) 0.6 K/uL (0.0-0.7); EOSINOPHILS % (AUTO) 1.4 % (0.0-7.0); HEMATOCRIT 30.9 % (36.7-47.1); LYMPHOCYTES # (AUTO) 34.5 K/uL (20.0-40.0); LYMPHOCYTES % (AUTO) 80.7 % (20.5-51.5); MEAN CORPUSCULAR HGB CONC 32 g/dL (32.5-36.3); MEAN CORPUSCULAR VOLUME 83.4 fL (73.0-96.2); MONOCYTES # (AUTO) 1.2 K/uL (2.0-10.0); MONOCYTES % (AUTO) 2.9 % (0.0-11.0); NEUTROPHILS # (AUTO) 6.2 K/uL (1.8-8.9); NEUTROPHILS % (AUTO) 14.5 % (38.5-71.5); PLATELET COUNT (AUTO) 211 K/uL (152-348)
[2017-04-11 07:26] LABS: WHITE BLOOD COUNT (AUTO) 42.7 K/uL (3.6-10.2)
[2017-04-11] MEDS: PREGABALIN 100 MG CAPSULE PO SCH ×2 (08:01→12:21)
[2017-04-11] MEDS: MELOXICAM 7.5 MG TABLET PO SCH (08:01)
[2017-04-11] MEDS: PANTOPRAZOLE SODIUM 40 MG TABLET.DR PO SCH (08:02)
[2017-04-11] MEDS: TAMSULOSIN HCL 0.4 MG CAP.SR.24H PO SCH (08:02)
[2017-04-11] MEDS: FERROUS SULFATE 325 MG TABEC PO SCH (08:02)
[2017-04-11] MEDS: ASPIRIN 81 MG TAB.CHEW PO SCH (08:02)
[2017-04-11] MEDS: FAMOTIDINE 20 MG TABLET PO SCH (08:02)
[2017-04-11] MEDS: AMLODIPINE 10 MG TABLET PO SCH (08:02)
[2017-04-11] MEDS: MULTIVIT, IRON, MIN NO. 8, FA TABLET PO SCH (08:02)
[2017-04-11] MEDS: DIVALPROEX SPRINKLE 125 MG CAP.SPRINK PO SCH ×2 (08:02→12:21)
[2017-04-11] MEDS: TOLTERODINE LA 2 MG CAP.SR.24H PO SCH (08:02)
[2017-04-11] MEDS: DOCUSATE SODIUM 100 MG CAPSULE PO SCH (08:02)
[2017-04-11] MEDS: ASCORBIC ACID 500 MG TABLET PO SCH (08:02)
[2017-04-11] MEDS: ACIDOPHILUS/BULGARICUS CHEW TAB PO SCH (08:03)
[2017-04-11] MEDS: LORAZEPAM 1 MG TABLET PO SCH ×2 (08:03→12:21)
[2017-04-11] MEDS: CARVEDILOL 6.25 MG TABLET PO SCH (08:03)
[2017-04-11] MEDS: LISINOPRIL 5 MG TABLET PO SCH (08:03)
[2017-04-11] MEDS: MUPIROCIN 2% OINT 22 GM TUBE NS SCH (08:04)
[2017-04-11 08:09] VITALS: BP 138/57
[2017-04-11] MEDS: NIACIN 500 MG TABLET PO SCH (08:10)
[2017-04-11 08:35] LABS: CARBON DIOXIDE 28 mmol/L (21-32); CHLORIDE 97 mmol/L (98-107); CREATININE 1.2 mg/dL (0.6-1.3); GLUCOSE 122 mg/dL (74-106); MAGNESIUM 1.9 mg/dL (1.8-2.4); PHOSPHOROUS 2.9 mg/dL (2.5-4.9); POTASSIUM 4.7 mmol/L (3.5-5.1); UREA NITROGEN, BLOOD 17 mg/dL (7-18)
[2017-04-11 10:07] LABS: EOSINOPHILS % (MANUAL) 1 % (0-8); LYMPHOCYTES % (MANUAL) 80 % (20-40); MONOCYTES % (MANUAL) 4 % (2-10); NEUTROPHILS % (MANUAL) 15 % (42-75)
[2017-04-11] MEDS: ZIPRASIDONE MESYLATE 20 MG VIAL IM PRN (11:27)
--- NOTE | 2017-04-11 11:27 | NUR ---
PT IS COMBATIVE ,YELLING AND SCREAMING HITTING THE NURSING STAFF APRIL 3MG IM GIVEN PER MD ORDERS.
[2017-04-11] MEDS ORDERED: LEVO500T2 PO (11:32)
[2017-04-11] MEDS: INSULIN REGULAR, HUMAN 300 UNIT/3 ML VIAL SQ PRN (11:43)
--- NOTE | 2017-04-11 14:19 | NUR ---
D/C ORDERS RECEIVED NOTED AND CARRIED OUT.D/C INSTRUCTION AND RN REPORT GIVEN OVER [facility],D/C MIDLINE PER MD ORDERS.PT LEFT THE FACILITY VIA AMBULANCES IN STABLE CONDITION.
== END 2017-04-11 14:30 | DRG 193 ==
LOC: ER 22:15 → TELE 04-08 00:17 → MED 04-08 23:41
PROVIDERS: ADMIT Internal Medicine; ATTEND Internal Medicine
PROC: 05H533Z Insertion of Infusion Device into Right Subclavian Vein, Percutaneous Approach (ICD-10-PCS; principal; 2017-04-08)
PROC: B546ZZA Ultrasonography of Right Subclavian Vein, Guidance (ICD-10-PCS; 2017-04-08)
DX: J18.9 Pneumonia, unspecified organism (principal); G92 Toxic encephalopathy; N17.0 Acute kidney failure with tubular necrosis; C91.10 Chronic lymphocytic leukemia of B-cell type not having achieved remission; E11.65 Type 2 diabetes mellitus with hyperglycemia; D68.59 Other primary thrombophilia; I50.42 Chronic combined systolic (congestive) and diastolic (congestive) heart failure; N39.0 Urinary tract infection, site not specified; E87.1 Hypo-osmolality and hyponatremia; D89.9 Disorder involving the immune mechanism, unspecified; I11.0 Hypertensive heart disease with heart failure; G30.9 Alzheimer's disease, unspecified; F02.80 Dementia in other diseases classified elsewhere, unspecified severity, without behavioral disturbance, psychotic disturbance, mood disturbance, and anxiety; I44.7 Left bundle-branch block, unspecified; Y95 Nosocomial condition; Z87.440 Personal history of urinary (tract) infections; Z85.118 Personal history of other malignant neoplasm of bronchus and lung; Z79.4 Long term (current) use of insulin; Z74.09 Other reduced mobility; E78.5 Hyperlipidemia, unspecified; I25.2 Old myocardial infarction; I25.10 Atherosclerotic heart disease of native coronary artery without angina pectoris; I25.5 Ischemic cardiomyopathy; G20 Parkinson's disease; Z22.322 Carrier or suspected carrier of Methicillin resistant Staphylococcus aureus; D63.0 Anemia in neoplastic disease; N40.0 Benign prostatic hyperplasia without lower urinary tract symptoms; M48.061 Spinal stenosis, lumbar region without neurogenic claudication; Z79.899 Other long term (current) drug therapy; Z79.82 Long term (current) use of aspirin
CPT/HCPCS: 36415; 36569; 70030-TC; 71045; 83605; 83735; 84100; 85025; 87040; 87086; 87400; 93005; A4663; J1815; J2185; J2270; J3475; J3486; J3490; J7030; J7042

== ENCOUNTER 2017-05-16 21:05 | Inpatient (IN) | payer MEDICARE, MEDICAID ==
[~2017-05-16] VITALS: Ht 172.7 cm; Wt 64.9 kg
[~2017-05-16 21:05] MED LIST changes: -ACET325T53 PO; -DEXT50DI8 IV; +DICY10CA13 PO; -INSU100I19 SQ; +INSU100V10 SQ; +LEVO500T2 PO; +LINA145C PO; -MERO500V IV
--- NOTE | 2017-05-16 21:08 | NUR ---
DR SHAUN CAM MD AT BEDSIDE FOR MSE.
[2017-05-16] MEDS ORDERED: NITROGLYCERIN 0.4 MG/TAB BOTTLE SL ONE ×2 (21:15→21:26)
[2017-05-16] MEDS ORDERED: ASPIRIN 81 MG TAB.CHEW PO ONE ×2 (21:15)
[2017-05-16] MEDS ORDERED: OMEP40CA37 PO (21:21)
[2017-05-16] MEDS ORDERED: ASPIRIN 81 MG TAB.CHEW ONE (21:26)
[2017-05-16 22:00] LABS: CARBON DIOXIDE 27 mmol/L (21-32); CHLORIDE 93 mmol/L (98-107); CREATININE 1.2 mg/dL (0.6-1.3); GLUCOSE 221 mg/dL (74-106); POTASSIUM 5.1 mmol/L (3.5-5.1); UREA NITROGEN, BLOOD 27 mg/dL (7-18)
[2017-05-16] MEDS ORDERED: MORPHINE SULFATE 2 MG/1 ML DISP.SYRIN ONE (22:07)
[2017-05-16] MEDS ORDERED: ONDANSETRON 4 MG/2 ML VIAL ONE (22:07)
[2017-05-16] MEDS ORDERED: MORPHINE SULFATE 2 MG/1 ML DISP.SYRIN IV ONE (22:15)
[2017-05-16] MEDS ORDERED: ONDANSETRON 4 MG/2 ML VIAL IV ONE (22:15)
[2017-05-16 22:16] LABS: ALANINE AMINOTRANSFERASE 15 U/L (16-63); ALKALINE PHOSPHATASE 86 U/L (50-136); ASPARTATE AMINOTRANSFERASE 7 U/L (15-37); BILIRUBIN,DIRECT < 0.1 mg/dL (0.0-0.2); BILIRUBIN,TOTAL 0.1 mg/dL (0.2-1.0); TOTAL PROTEIN, SERUM 6.2 g/dL (6.4-8.2)
--- NOTE | 2017-05-16 22:18 | NUR ---
PT RESTING IN BED W/ SON AT BEDSIDE [facility] [phone]
[2017-05-16 22:19] LABS: BASOPHILS # (AUTO) 0.1 K/uL (0.0-8.0); BASOPHILS % (AUTO) 0.2 % (0.0-2.0); EOSINOPHILS # (AUTO) 0.7 K/uL (0.0-0.7); EOSINOPHILS % (AUTO) 1.4 % (0.0-7.0); HEMATOCRIT 25.2 % (36.7-47.1); HEMOGLOBIN 8.3 g/dL (12.5-16.3); LYMPHOCYTES # (AUTO) 43.6 K/uL (20.0-40.0); LYMPHOCYTES % (AUTO) 85.1 % (20.5-51.5); MEAN CORPUSCULAR HEMOGLOBIN 26.8 uug (23.8-33.4); MEAN CORPUSCULAR HGB CONC 33 g/dL (32.5-36.3); MEAN CORPUSCULAR VOLUME 81.7 fL (73.0-96.2); MONOCYTES % (AUTO) 1.9 % (0.0-11.0); NEUTROPHILS # (AUTO) 5.8 K/uL (1.8-8.9); NEUTROPHILS % (AUTO) 11.4 % (38.5-71.5); PLATELET COUNT (AUTO) 213 K/uL (152-348); RED BLOOD CELL COUNT(AUTO) 3.08 MIL/uL (4.06-5.63)
[2017-05-16 22:30] LABS: WHITE BLOOD COUNT (AUTO) 51.2 K/uL (3.6-10.2)
[2017-05-16 22:36] LABS: BASOPHILS % (MANUAL) 0 % (0-2)
[2017-05-16 22:40] LABS: LYMPHOCYTES % (MANUAL) 79 % (20-40); NEUTROPHILS % (MANUAL) 19 % (42-75)
[2017-05-16 22:41] LABS: EOSINOPHILS % (MANUAL) 1 % (0-8); MONOCYTES % (MANUAL) 1 % (2-10)
[2017-05-16] MEDS ORDERED: DICYCLOMINE HCL 10 MG CAPSULE PO PRN (23:30)
[2017-05-16] MEDS ORDERED: DEXTROSE 50% 50 ML DISP.SYRIN IV PRN (23:30)
[2017-05-16] MEDS ORDERED: MIRALAX 17 GM POWD.PACK PO PRN (23:30)
[2017-05-16] MEDS ORDERED: BISACODYL 10 MG SUPP.RECT RC PRN (23:30)
[2017-05-16] MEDS ORDERED: ENALAPRILAT DIHYDRATE INJ 2.5 MG in IV NORMAL SALINE 50 ML IV PRN (23:30)
--- NOTE | 2017-05-16 23:45 | NUR ---
REPORT GIVEN TO PAMELA ROBLERO.
--- NOTE | 2017-05-16 23:50 | NUR ---
Pt. admitted to TELE, under care of Dr. RAMOS Belongs List completed
--- NOTE | 2017-05-17 | NUR ---
PT IN ROOM ALERT AWAKE IN NO ACUTE DISTRESS. NO ACTIVE C/O CHEST PAIN AT THIS TIME. ONLY SPEAKING IN FARSI AND STATES 'PAIN'. NO S/S OF HYPER/HYPOGLYCEMIA. CONTRACTING SUPPORT SPECIALIST SHOWING SINUS RHYTHM. PT REPOSITIONED WITH HOB ELEVATED 30 DEGREES. AWAITING ADMITTING ORDERS.
[2017-05-17 00:30] VITALS: BP 132/50
[2017-05-17] MEDS ORDERED: LEVOFLOXACIN 500 MG/D5W 100 ML ONE (00:40)
[2017-05-17] MEDS: QUETIAPINE FUMARATE 25 MG TABLET PO SCH ×2 (00:50→20:37)
[2017-05-17] MEDS: TRAZODONE 100 MG TABLET PO SCH ×2 (00:50→20:33)
[2017-05-17] MEDS ORDERED: LEVOFLOXACIN 500 MG/D5W 500 MG in PREMIXED 1 EACH IV ONE (01:00)
[2017-05-17] MEDS: INSULIN GLARGINE,HUM 300 UNITS/3 ML CARTRIDGE SQ SCH ×3 (01:01→23:20)
[2017-05-17] MEDS: MORPHINE SULFATE 4 MG/1 ML DISP.SYRIN IV PRN ×3 (01:18→15:46)
--- NOTE | 2017-05-17 05:43 | NUR ---
PT IN ROOM ALERT AWAKE IN NO ACUTE DISTRESS. NO INCREASED PAIN FROM PREVIOUS MORPHINE GIVEN. PT ABLE TO EAT AND DRINK WITHOUT DIFFICULTY. MRSA SWAB DONE AND SENT TO LAB. HOB ELEVATED 30 DEGREES. NO ADVERSE REACTION TO RECENT IV ABX LEVAQUIN THERAPY. WILL CONTINUE TO MONITOR.
[2017-05-17 05:44] VITALS: BP 106/59
[2017-05-17] MEDS: BLOOD SUGAR DIAGNOSTIC 1 EACH STRIP VI SCH ×4 (06:30→20:44)
[2017-05-17 06:36] LABS: ALANINE AMINOTRANSFERASE 15 U/L (16-63); ALKALINE PHOSPHATASE 79 U/L (50-136); ASPARTATE AMINOTRANSFERASE 6 U/L (15-37); BILIRUBIN,TOTAL 0.1 mg/dL (0.2-1.0); CARBON DIOXIDE 28 mmol/L (21-32); CHLORIDE 96 mmol/L (98-107); CREATININE 1.1 mg/dL (0.6-1.3); GLUCOSE 175 mg/dL (74-106); MAGNESIUM 1.6 mg/dL (1.8-2.4); PHOSPHOROUS 4.4 mg/dL (2.5-4.9); POTASSIUM 4.9 mmol/L (3.5-5.1); TOTAL PROTEIN, SERUM 6.1 g/dL (6.4-8.2); UREA NITROGEN, BLOOD 23 mg/dL (7-18)
[2017-05-17 06:41] LABS: IRON, SERUM 32 ug/dL (50-175)
[2017-05-17 07:06] LABS: BASOPHILS # (AUTO) 0.1 K/uL (0.0-8.0); BASOPHILS % (AUTO) 0.2 % (0.0-2.0); EOSINOPHILS # (AUTO) 0.9 K/uL (0.0-0.7); EOSINOPHILS % (AUTO) 1.9 % (0.0-7.0); HEMATOCRIT 24.9 % (36.7-47.1); HEMOGLOBIN 8.1 g/dL (12.5-16.3); LYMPHOCYTES % (AUTO) 82.7 % (20.5-51.5); MEAN CORPUSCULAR HEMOGLOBIN 26.7 uug (23.8-33.4); MEAN CORPUSCULAR HGB CONC 33 g/dL (32.5-36.3); MEAN CORPUSCULAR VOLUME 82.2 fL (73.0-96.2); MONOCYTES % (AUTO) 2.2 % (0.0-11.0); NEUTROPHILS # (AUTO) 6.1 K/uL (1.8-8.9); PLATELET COUNT (AUTO) 196 K/uL (152-348); RED BLOOD CELL COUNT(AUTO) 3.03 MIL/uL (4.06-5.63)
[2017-05-17 07:22] LABS: WHITE BLOOD COUNT (AUTO) 47.1 K/uL (3.6-10.2)
[2017-05-17] MEDS: INSULIN REGULAR, HUMAN 300 UNIT/3 ML VIAL SQ PRN ×3 (07:59→17:11)
[2017-05-17] MEDS: LACTOBACILLUS RHAMNOSUS GG 1 EACH CAPSULE PO SCH (08:00)
[2017-05-17] MEDS: TAMSULOSIN HCL 0.4 MG CAP.SR.24H PO SCH ×2 (08:00→17:06)
[2017-05-17] MEDS: PANTOPRAZOLE SODIUM 40 MG TABLET.DR PO SCH (08:00)
[2017-05-17] MEDS: DOCUSATE SODIUM 100 MG CAPSULE PO SCH (08:00)
[2017-05-17] MEDS: ASCORBIC ACID 500 MG TABLET PO SCH (08:00)
[2017-05-17] MEDS: MULTIVITAMINS,THERAPEUTIC TABLET PO SCH (08:01)
[2017-05-17] MEDS: PREGABALIN 100 MG CAPSULE PO SCH ×3 (08:01→17:06)
[2017-05-17] MEDS: TOLTERODINE LA 2 MG CAP.SR.24H PO SCH (08:01)
[2017-05-17] MEDS: DIVALPROEX SPRINKLE 125 MG CAP.SPRINK PO SCH ×3 (08:01→17:07)
[2017-05-17] MEDS: LISINOPRIL 5 MG TABLET PO SCH (08:03)
[2017-05-17] MEDS: AMLODIPINE 10 MG TABLET PO SCH (08:04)
[2017-05-17] MEDS: REPAGLINIDE 1 MG TABLET PO SCH ×3 (08:16→17:06)
[2017-05-17] MEDS: ASPIRIN 81 MG TAB.CHEW PO SCH (08:16)
[2017-05-17] MEDS ORDERED: NIACIN 250 MG PO SCH (09:00)
[2017-05-17] MEDS ORDERED: CARVEDILOL 6.25 MG TABLET PO SCH (09:00)
[2017-05-17] MEDS ORDERED: PANTOPRAZOLE SODIUM 40 MG TABLET.DR PO SCH (09:00)
[2017-05-17] MEDS ORDERED: Medication Not On Formulary EA (Lactobacillus Acidophilus (Acidophilus) 1 EACH) PO SCH (09:00)
[2017-05-17] MEDS ORDERED: Medication Not On Formulary EA (Linaclotide (Linzess) 145 MCG) PO SCH (09:00)
[2017-05-17] MEDS ORDERED: Medication Not On Formulary EA (Multivitamin With Minerals (One Daily Complete) 1 EACH) PO SCH (09:00)
[2017-05-17 10:46] LABS: EOSINOPHILS % (MANUAL) 1 % (0-8); LYMPHOCYTES % (MANUAL) 88 % (20-40); MONOCYTES % (MANUAL) 1 % (2-10); NEUTROPHILS % (MANUAL) 10 % (42-75)
[2017-05-17 11:38] VITALS: BP 104/45
--- NOTE | 2017-05-17 12:46 | NUR ---
andrew not given, called pharmacy for missing medication 1115, still no medication
[2017-05-17] MEDS: MAGNESIUM SULFATE/D5W 100 ML IV SCH ×2 (14:25→15:46)
[2017-05-17 15:59] VITALS: BP 117/47
[2017-05-17] MEDS: CARVEDILOL 6.25 MG TABLET PO SCH (17:11)
--- NOTE | 2017-05-17 17:19 | NUR ---
Family at beside, requesting a chest xray be done and wants to speak to physician, will endorse to
--- NOTE | 2017-05-17 18:03 | NUR ---
cxr was done yesterday, explained to family member. 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 Bilateral upper arm pain managed with morphine PRN. Call light in reach, will continue to monitor
[2017-05-17 20:00] VITALS: BP 117/53
[2017-05-17] MEDS: HYDROCODONE/APAP 5-325MG TABLET PO PRN (20:33)
[2017-05-17] MEDS ORDERED: NIACIN 500 MG TABLET PO SCH (21:00)
[2017-05-17] MEDS ORDERED: LEVOFLOXACIN 500 MG/D5W 500 MG in PREMIXED 1 EACH IV SCH (21:00)
[2017-05-17] MEDS ORDERED: ATORVASTATIN 10 MG TABLET PO SCH (21:00)
[2017-05-17] MEDS ORDERED: DONEPEZIL 5 MG TABLET PO SCH (21:00)
[2017-05-17] MEDS ORDERED: LEVOFLOXACIN 250MG /D5W 250 MG in PREMIXED 1 EACH IV SCH (22:00)
[2017-05-18] VITALS: BP 126/61
[2017-05-18 04:00] VITALS: BP 132/67
--- NOTE | 2017-05-18 06:00 | NUR ---
PT ALERT,CONFUSED.YELLS WHEN IN PAIN POINTING TO CHEST AREA MEDICATED WITH NORCO WITH GOOD RELIEF, SLEPT WELL AFTER ALL MEDS GIVEN, VSS,AFEBRILE.SINUS RHYTHM ON MONITOR.KEPT ATTENDED, CONTACT FOR ESBL URINE.
[2017-05-18] MEDS: PANTOPRAZOLE SODIUM 40 MG TABLET.DR PO SCH (06:06)
[2017-05-18] MEDS: BLOOD SUGAR DIAGNOSTIC 1 EACH STRIP VI SCH ×3 (06:26→17:24)
[2017-05-18 07:16] LABS: THYROID STIMULATING HORMONE 1.767 mIU/mL (0.358-3.740)
--- NOTE | 2017-05-18 07:30 | NUR ---
Confused, moaning at times. Contact precaution maintained
[2017-05-18 08:06] LABS: CARBON DIOXIDE 28 mmol/L (21-32); CHLORIDE 95 mmol/L (98-107); CREATININE 1.4 mg/dL (0.6-1.3); GLUCOSE 96 mg/dL (74-106); MAGNESIUM 2.3 mg/dL (1.8-2.4); PHOSPHOROUS 4.4 mg/dL (2.5-4.9); POTASSIUM 5.3 mmol/L (3.5-5.1); UREA NITROGEN, BLOOD 23 mg/dL (7-18); URIC ACID 4.4 mg/dL (3.5-7.2)
[2017-05-18] MEDS: DOCUSATE SODIUM 100 MG CAPSULE PO SCH (09:10)
[2017-05-18] MEDS: LACTOBACILLUS RHAMNOSUS GG 1 EACH CAPSULE PO SCH (09:10)
[2017-05-18] MEDS: REPAGLINIDE 1 MG TABLET PO SCH ×3 (09:10→17:24)
[2017-05-18] MEDS: ASPIRIN 81 MG TAB.CHEW PO SCH (09:10)
[2017-05-18] MEDS: DIVALPROEX SPRINKLE 125 MG CAP.SPRINK PO SCH ×3 (09:10→17:24)
[2017-05-18] MEDS: TAMSULOSIN HCL 0.4 MG CAP.SR.24H PO SCH ×2 (09:11→17:24)
[2017-05-18] MEDS: TOLTERODINE LA 2 MG CAP.SR.24H PO SCH (09:11)
[2017-05-18] MEDS: ASCORBIC ACID 500 MG TABLET PO SCH (09:11)
[2017-05-18] MEDS: CARVEDILOL 6.25 MG TABLET PO SCH ×2 (09:11→17:25)
[2017-05-18] MEDS: AMLODIPINE 10 MG TABLET PO SCH (09:11)
[2017-05-18] MEDS: MULTIVITAMINS,THERAPEUTIC TABLET PO SCH (09:11)
[2017-05-18] MEDS: PREGABALIN 100 MG CAPSULE PO SCH ×3 (09:11→17:24)
[2017-05-18] MEDS: LISINOPRIL 5 MG TABLET PO SCH (09:12)
[2017-05-18] MEDS: ALBUTEROL SULFATE 2.5 MG/3 ML NEBU IH PRN ×2 (09:34→18:17)
--- NOTE | 2017-05-18 09:35 | NUR ---
Noted wheezing. HHN treatment given by RT
[2017-05-18 11:38] VITALS: BP 133/53
[2017-05-18] MEDS: HYDROCODONE/APAP 5-325MG TABLET PO PRN (12:17)
[2017-05-18] MEDS: INSULIN GLARGINE,HUM 300 UNITS/3 ML CARTRIDGE SQ SCH (12:25)
[2017-05-18] MEDS: INSULIN REGULAR, HUMAN 300 UNIT/3 ML VIAL SQ PRN (12:26)
[2017-05-18] MEDS ORDERED: CLONIDINE HCL 0.1 MG TABLET PO SCH (14:00)
[2017-05-18] MEDS: MORPHINE SULFATE 4 MG/1 ML DISP.SYRIN IV PRN (14:07)
[2017-05-18 15:34] VITALS: BP 113/47
[2017-05-18 17:25] VITALS: BP 113/47
--- NOTE | 2017-05-18 17:41 | NUR ---
With discharge order to SNF, facilitated to [facility]. Report given to Ashlee. Family informed by Rosalva SCHWARTZ Saline lock removed. Ambulance picker / packer eta [phone]
--- NOTE | 2017-05-18 18:56 | NUR ---
Discharged per gurney/ambulance in fair condition, not in distress, afebrile.
== END 2017-05-18 18:50 | DRG 205 ==
LOC: ER 21:06 → TELE 23:28
PROVIDERS: ADMIT Internal Medicine; ATTEND Internal Medicine
DX: M94.0 Chondrocostal junction syndrome [Tietze] (principal); N17.0 Acute kidney failure with tubular necrosis; I50.43 Acute on chronic combined systolic (congestive) and diastolic (congestive) heart failure; C91.10 Chronic lymphocytic leukemia of B-cell type not having achieved remission; E11.65 Type 2 diabetes mellitus with hyperglycemia; D68.59 Other primary thrombophilia; E87.1 Hypo-osmolality and hyponatremia; M19.019 Primary osteoarthritis, unspecified shoulder; M19.90 Unspecified osteoarthritis, unspecified site; Z85.118 Personal history of other malignant neoplasm of bronchus and lung; Z79.4 Long term (current) use of insulin; F25.0 Schizoaffective disorder, bipolar type; G30.9 Alzheimer's disease, unspecified; F02.80 Dementia in other diseases classified elsewhere, unspecified severity, without behavioral disturbance, psychotic disturbance, mood disturbance, and anxiety; G20 Parkinson's disease; E87.5 Hyperkalemia; Z79.899 Other long term (current) drug therapy; Z79.82 Long term (current) use of aspirin; M48.061 Spinal stenosis, lumbar region without neurogenic claudication; K21.9 Gastro-esophageal reflux disease without esophagitis; I25.2 Old myocardial infarction; I25.10 Atherosclerotic heart disease of native coronary artery without angina pectoris; I25.5 Ischemic cardiomyopathy; I11.0 Hypertensive heart disease with heart failure; D63.0 Anemia in neoplastic disease; E78.5 Hyperlipidemia, unspecified; R97.20 Elevated prostate specific antigen [PSA]; Z74.09 Other reduced mobility; I44.7 Left bundle-branch block, unspecified
CPT/HCPCS: 36415; 70030-TC; 71045; 83550; 83735; 84100; 84300; 84443; 84550; 85025; 85730; 86850; 86900; 86901; 93005; 94664; 97165; A4663; J1815; J1956; J2270; J2405; J3475; J7040

== ENCOUNTER 2017-12-12 11:09 | Inpatient (IN) | payer MEDICARE, MEDICAID ==
[~2017-12-12] VITALS: Ht 167.6 cm; Wt 63.5 kg
[~2017-12-12 11:09] MED LIST changes: -BLOO-140 IN; -DIVA125C PO; +DIVA125C2 PO; +OMEP40CA37 PO; -TRAZ-147 PO; +TRAZ-214 PO
[2017-12-12] MEDS ORDERED: IV NORMAL SALINE 1000 ML BAG IV ONE (11:15)
[2017-12-12] MEDS ORDERED: CLON0.1T PO (11:41)
[2017-12-12] MEDS ORDERED: ARIP2TAB3 PO (11:41)
[2017-12-12] MEDS ORDERED: DEXT15DR6 OP (11:41)
[2017-12-12] MEDS ORDERED: SERT50TA PO (11:41)
[2017-12-12] MEDS ORDERED: FINA5TAB3 PO (11:41)
[2017-12-12] MEDS ORDERED: CHOL10002 PO (11:41)
[2017-12-12 11:52] LABS: BASOPHILS # (AUTO) 0.2 K/uL (0.0-8.0); BASOPHILS % (AUTO) 0.3 % (0.0-2.0); EOSINOPHILS % (AUTO) 0.1 % (0.0-7.0); HEMATOCRIT 33.9 % (36.7-47.1); HEMOGLOBIN 11.3 g/dL (12.5-16.3); LYMPHOCYTES # (AUTO) 47.5 K/uL (20.0-40.0); LYMPHOCYTES % (AUTO) 81.6 % (20.5-51.5); MEAN CORPUSCULAR HEMOGLOBIN 27.9 uug (23.8-33.4); MEAN CORPUSCULAR HGB CONC 33 g/dL (32.5-36.3); MEAN CORPUSCULAR VOLUME 83.6 fL (73.0-96.2); MONOCYTES # (AUTO) 1.1 K/uL (2.0-10.0); NEUTROPHILS # (AUTO) 9.3 K/uL (1.8-8.9); PLATELET COUNT (AUTO) 200 K/uL (152-348); RED BLOOD CELL COUNT(AUTO) 4.05 MIL/uL (4.06-5.63)
[2017-12-12 12:01] LABS: WHITE BLOOD COUNT (AUTO) 58.2 K/uL (3.6-10.2)
[2017-12-12 12:11] LABS: CARBON DIOXIDE 25 mmol/L (21-32); CHLORIDE 88 mmol/L (98-107); CREATININE 0.8 mg/dL (0.6-1.3); GLUCOSE 206 mg/dL (74-106); UREA NITROGEN, BLOOD 16 mg/dL (7-18)
[2017-12-12 12:15] LABS: ALANINE AMINOTRANSFERASE 19 U/L (16-63); ALKALINE PHOSPHATASE 73 U/L (50-136); ASPARTATE AMINOTRANSFERASE 11 U/L (15-37); BILIRUBIN,DIRECT 0.1 mg/dL (0.0-0.2); BILIRUBIN,TOTAL 0.4 mg/dL (0.2-1.0); LIPASE 58 U/L (73-393); TOTAL PROTEIN, SERUM 6.2 g/dL (6.4-8.2)
[2017-12-12 12:18] LABS: BASOPHILS % (MANUAL) 0 % (0-2); EOSINOPHILS % (MANUAL) 0 % (0-8); LYMPHOCYTES % (MANUAL) 73 % (20-40); MONOCYTES % (MANUAL) 2 % (2-10); NEUTROPHILS % (MANUAL) 25 % (42-75)
--- NOTE | 2017-12-12 12:50 | NUR ---
p transfered to floor in stable condition.
--- NOTE | 2017-12-12 12:55 | NUR ---
PT ARRIVED ON THE UNIT VIA GURNEY, PT IS CALM, COOPERATIVE, AOX2, CAN FOLLOW SOME COMMAND, SKIN INTACT, NO SIGNS OF DISTRESS, PT HAS PITTING EDEMA ON BILATERAL ANKLES +4, CONTINUE TO MONITOR PT.
[2017-12-12 12:57] LABS: *BILIRUBIN,URIN NEGATIVE (NEGATIVE); *BLOOD, URINE NEGATIVE (NEGATIVE); *CLARITY,URINE SLIGHTLY CLOUDY (CLEAR); *COLOR,URINE YELLOW (YELLOW); *KETONES,URINE TRACE (NEGATIVE); *PROTEIN,URINE TRACE (NEGATIVE); *UROBILINOGEN,URINE 0.2 E.U./dl (NORMAL); LEUKOCYTE ESTERASE ,URINE NEGATIVE (NEGATIVE); NITRITE, URINE NEGATIVE (NEGATIVE); PH,URINE 7.5 (5.0-8.0)
[2017-12-12 13:00] VITALS: BP 150/70
[2017-12-12 13:20] LABS: UGLUCOSE 2+ (NEGATIVE)
[2017-12-12 13:21] LABS: BACTERIA,URINE NONE SEEN /HPF (NONE SEEN); RBC,URINE NONE SEEN /HPF (0-3); SQUAMOUS EPITHELIAL CELL,UR NONE SEEN /HPF (NONE SEEN); WBC,URINE NONE SEEN /HPF (0-3)
[2017-12-12] MEDS ORDERED: ALBUTEROL SULFATE 2.5 MG/3 ML NEBU IH PRN (14:45)
[2017-12-12] MEDS ORDERED: MIRALAX 17 GM POWD.PACK PO PRN (14:45)
[2017-12-12 15:59] VITALS: BP 145/64
[2017-12-12] MEDS: REPAGLINIDE 1 MG TABLET PO SCH (16:46)
[2017-12-12] MEDS: BLOOD SUGAR DIAGNOSTIC 1 EACH STRIP VI SCH ×2 (16:46→20:17)
[2017-12-12] MEDS: DIVALPROEX SPRINKLE 125 MG CAP.SPRINK PO SCH (16:47)
[2017-12-12] MEDS: FERROUS SULFATE 325 MG TABEC PO SCH (16:52)
[2017-12-12] MEDS: PREGABALIN 50 MG CAPSULE PO SCH (16:52)
[2017-12-12] MEDS: INSULIN REGULAR, HUMAN 300 UNIT/3 ML VIAL SQ PRN ×2 (16:56→20:19)
[2017-12-12] MEDS ORDERED: PREGABALIN 100 MG CAPSULE PO SCH (17:00)
[2017-12-12] MEDS: CARVEDILOL 6.25 MG TABLET PO SCH (17:08)
--- NOTE | 2017-12-12 18:20 | NUR ---
PT OBSERVED IN BED RESTING, QUIET, NO SIGNS OF RESPIRATORY DISTRESS. CONTINUE TO MONITOR PT.
--- NOTE | 2017-12-12 19:20 | NUR ---
RECEIVED PATIENT LYING IN BED. ASLEEP BUT EASILY AROUSE TO VERBAL AND TACTILE STIMULI. AAOX1, MAINLY CONFUSED AND DISORIENTED. IN NO ACUTE DISTRESS. IV SITE ON LEFT HAND INTACT AND PATENT. IVF INFUSING. NSR IN TELE AT 60/MIN. O2 SAT AT 98%. SAFETY MEASURE INITIATED AND CALL SORIANO WITHIN REACH.
[2017-12-12 19:32] VITALS: BP 148/62
[2017-12-12] MEDS: FINASTERIDE 5 MG TABLET PO SCH (20:16)
[2017-12-12] MEDS: ATORVASTATIN 10 MG TABLET PO SCH (20:16)
[2017-12-12] MEDS: ARIPIPRAZOLE 2 MG TABLET PO SCH (20:16)
[2017-12-12] MEDS: DONEPEZIL 5 MG TABLET PO SCH (20:17)
[2017-12-12] MEDS: POLYVINYL ALCOHOL OPHT DROPS 15 ML BOTTLE EACHEYE SCH (20:17)
[2017-12-12] MEDS: TRAZODONE 100 MG TABLET PO SCH (20:17)
[2017-12-12] MEDS: SERTRALINE HCL 50 MG TABLET PO SCH (20:17)
[2017-12-12] MEDS: INSULIN GLARGINE,HUM 300 UNITS/3 ML CARTRIDGE SQ SCH (20:19)
[2017-12-12] MEDS: CLONIDINE HCL 0.1 MG TABLET PO SCH (22:35)
[2017-12-12 23:56] VITALS: BP 105/48
[2017-12-13] MEDS: IV NS 1000 ML 1,000 ML IV PRN ×2 (00:06→18:18)
[2017-12-13 03:18] VITALS: BP 132/51
[2017-12-13] MEDS: HYDROCODONE/APAP 5-325MG TABLET PO PRN (04:48)
[2017-12-13] MEDS: PANTOPRAZOLE SODIUM 40 MG TABLET.DR PO SCH (06:12)
[2017-12-13] MEDS: CLONIDINE HCL 0.1 MG TABLET PO SCH ×3 (06:13→21:33)
--- NOTE | 2017-12-13 06:26 | NUR ---
AAOX1-2. SPEECH GARBLED. ABLE TO MAKE NEEDS KNOWN. IN NO ACUTE DISTRESS. IV SITE ON LEFT HAND INTACT AND PATENT. IVF INFUSING. NSR WITH BBB IN TELE AT 60/MIN. HYDROCODONE GIVEN PER ORDER PRN FOR COMPLAIN OF PAIN AND EFFECTIVE. O2 SAT AT 97%. ON O2 AT 2LPM VIA NC IN PLACE. SAFETY MEASURE MAINTAINED AND CALL SORIANO WITHIN REACH.
[2017-12-13] MEDS: BLOOD SUGAR DIAGNOSTIC 1 EACH STRIP VI SCH ×4 (06:32→20:40)
[2017-12-13 06:50] LABS: BASOPHILS # (AUTO) 0.1 K/uL (0.0-8.0); BASOPHILS % (AUTO) 0.2 % (0.0-2.0); EOSINOPHILS # (AUTO) 0.2 K/uL (0.0-0.7); EOSINOPHILS % (AUTO) 0.3 % (0.0-7.0); HEMATOCRIT 31.9 % (36.7-47.1); HEMOGLOBIN 10.8 g/dL (12.5-16.3); LYMPHOCYTES # (AUTO) 45.4 K/uL (20.0-40.0); LYMPHOCYTES % (AUTO) 82.8 % (20.5-51.5); MEAN CORPUSCULAR HEMOGLOBIN 28.3 uug (23.8-33.4); MEAN CORPUSCULAR HGB CONC 34 g/dL (32.5-36.3); MEAN CORPUSCULAR VOLUME 83.6 fL (73.0-96.2); MONOCYTES # (AUTO) 1.3 K/uL (2.0-10.0); MONOCYTES % (AUTO) 2.3 % (0.0-11.0); NEUTROPHILS # (AUTO) 7.9 K/uL (1.8-8.9); NEUTROPHILS % (AUTO) 14.4 % (38.5-71.5); PLATELET COUNT (AUTO) 182 K/uL (152-348); RED BLOOD CELL COUNT(AUTO) 3.82 MIL/uL (4.06-5.63)
[2017-12-13 07:04] LABS: WHITE BLOOD COUNT (AUTO) 54.9 K/uL (3.6-10.2)
--- NOTE | 2017-12-13 07:04 | NUR ---
WBC OF 54.9 PER LAB, INFORMED DAY SHIFT NURSE CAMILA. Addendum: 12/13/17 at 0705 by MARKUS ROJAS RN INFORMED DAY SHIFT NURSE
[2017-12-13 07:05] LABS: ALANINE AMINOTRANSFERASE 18 U/L (16-63); ALKALINE PHOSPHATASE 63 U/L (50-136); ASPARTATE AMINOTRANSFERASE 11 U/L (15-37); BILIRUBIN,TOTAL 0.3 mg/dL (0.2-1.0); CARBON DIOXIDE 27 mmol/L (21-32); CHLORIDE 94 mmol/L (98-107); GLUCOSE 56 mg/dL (74-106); MAGNESIUM 1.6 mg/dL (1.8-2.4); PHOSPHOROUS 3.4 mg/dL (2.5-4.9); POTASSIUM 3.4 mmol/L (3.5-5.1); TOTAL PROTEIN, SERUM 5.7 g/dL (6.4-8.2); UREA NITROGEN, BLOOD 15 mg/dL (7-18)
[2017-12-13] MEDS: FERROUS SULFATE 325 MG TABEC PO SCH ×2 (08:37→17:09)
[2017-12-13] MEDS: ASCORBIC ACID 500 MG TABLET PO SCH (08:38)
[2017-12-13] MEDS: DIVALPROEX SPRINKLE 125 MG CAP.SPRINK PO SCH ×3 (08:38→17:08)
[2017-12-13] MEDS: CHOLECALCIFEROL 1,000 UNIT TABLET PO SCH (08:38)
[2017-12-13] MEDS: PREGABALIN 50 MG CAPSULE PO SCH ×3 (08:38→18:18)
[2017-12-13] MEDS: DOCUSATE SODIUM 100 MG CAPSULE PO SCH (08:39)
[2017-12-13] MEDS: ACIDOPHILUS/BULGARICUS CHEW TAB PO SCH (08:39)
[2017-12-13] MEDS: LISINOPRIL 5 MG TABLET PO SCH (08:39)
[2017-12-13] MEDS: ASPIRIN 81 MG TAB.CHEW PO SCH (08:40)
[2017-12-13] MEDS: CARVEDILOL 6.25 MG TABLET PO SCH ×2 (08:40→17:13)
[2017-12-13] MEDS: AMLODIPINE 10 MG TABLET PO SCH (08:40)
[2017-12-13] MEDS: MULTIVIT, IRON, MIN NO. 8, FA TABLET PO SCH (08:40)
[2017-12-13] MEDS ORDERED: Medication Not On Formulary EA (Lactobacillus Acidophilus (Acidophilus) 1 EACH) PO SCH (09:00)
[2017-12-13] MEDS ORDERED: Medication Not On Formulary EA (Linaclotide (Linzess) 145 MCG) PO SCH (09:00)
[2017-12-13] MEDS ORDERED: Medication Not On Formulary EA (Multivitamin With Minerals (One Daily Complete) 1 EACH) PO SCH (09:00)
[2017-12-13] MEDS ORDERED: NIACIN 250 MG PO SCH (09:00)
[2017-12-13] MEDS: REPAGLINIDE 1 MG TABLET PO SCH ×3 (09:09→17:08)
[2017-12-13] MEDS: INSULIN GLARGINE,HUM 300 UNITS/3 ML CARTRIDGE SQ SCH ×2 (09:19→20:31)
[2017-12-13 09:22] LABS: LYMPHOCYTES % (MANUAL) 28 % (20-40); NEUTROPHILS % (MANUAL) 14 % (42-75)
[2017-12-13] MEDS: POLYVINYL ALCOHOL OPHT DROPS 15 ML BOTTLE EACHEYE SCH ×2 (09:22→20:26)
[2017-12-13] MEDS: NIACIN 500 MG TABLET PO SCH (09:24)
[2017-12-13 11:04] VITALS: BP 142/82
[2017-12-13] MEDS ORDERED: POTASSIUM CHLORIDE 20 MEQ TAB.PRT.SR PO ONE (11:15)
[2017-12-13] MEDS: MAGNESIUM SULFATE/D5W 100 ML IV SCH ×2 (11:47→12:23)
[2017-12-13 15:10] VITALS: BP 124/54
--- NOTE | 2017-12-13 18:24 | NUR ---
pt observed sleeping in bed with no signs of respiratory distress, on NC 2L, fluids running, bed flat and in low locked position. NA increase to 128. continue to monitor pt.
--- NOTE | 2017-12-13 19:20 | NUR ---
RECEIVED PATIENT LYING IN BED. ASLEEP BUT EASILY AROUSE TO VERBAL AND TACTILE STIMULI. AAOX1, MAINLY CONFUSED AND DISORIENTED. IN NO ACUTE DISTRESS. IV SITE ON LEFT HAND INTACT AND PATENT. IVF INFUSING. NSR IN TELE AT 56/MIN WITH BORDER BBB. ON O2 AT 2LPM VIA NC IN PLACE. O2 SAT AT 100%. SAFETY MEASURE INITIATED AND CALL SORIANO WITHIN REACH.
[2017-12-13] MEDS: ATORVASTATIN 10 MG TABLET PO SCH (20:25)
[2017-12-13] MEDS: TRAZODONE 100 MG TABLET PO SCH (20:25)
[2017-12-13] MEDS: DONEPEZIL 5 MG TABLET PO SCH (20:25)
[2017-12-13] MEDS: FINASTERIDE 5 MG TABLET PO SCH (20:25)
[2017-12-13] MEDS: SERTRALINE HCL 50 MG TABLET PO SCH (20:25)
[2017-12-13] MEDS: ARIPIPRAZOLE 2 MG TABLET PO SCH (20:26)
[2017-12-13 21:48] VITALS: BP 126/51
[2017-12-14 00:37] VITALS: BP 136/57
[2017-12-14] MEDS: CLONIDINE HCL 0.1 MG TABLET PO SCH ×3 (05:19→21:11)
[2017-12-14] MEDS: PANTOPRAZOLE SODIUM 40 MG TABLET.DR PO SCH (06:01)
--- NOTE | 2017-12-14 06:19 | NUR ---
AAOX1-2. IN NO ACUTE DISTRESS. IV SITE ON LEFT HAND INTACT AND PATENT. IVF INFUSING. SINUS VALERIE WITH BBB IN TELE AT 58/MIN. DENIES NAY PAIN OR SOB. O2 SAT AT 99%. ON O2 AT 2LPM VIA NC IN PLACE. SAFETY MEASURE MAINTAINED AND CALL SORIANO WITHIN REACH.
[2017-12-14 06:24] VITALS: BP 157/59
[2017-12-14 06:29] LABS: CARBON DIOXIDE 32 mmol/L (21-32); CHLORIDE 96 mmol/L (98-107); CREATININE 0.9 mg/dL (0.6-1.3); MAGNESIUM 1.9 mg/dL (1.8-2.4); PHOSPHOROUS 3.1 mg/dL (2.5-4.9); POTASSIUM 3.9 mmol/L (3.5-5.1); UREA NITROGEN, BLOOD 13 mg/dL (7-18); URIC ACID 2.1 mg/dL (3.5-7.2)
[2017-12-14] MEDS: DEXTROSE 50% 50 ML DISP.SYRIN IV PRN (06:40)
[2017-12-14] MEDS: BLOOD SUGAR DIAGNOSTIC 1 EACH STRIP VI SCH ×5 (06:40→20:58)
[2017-12-14 06:57] LABS: GLUCOSE 29 mg/dL (74-106)
--- NOTE | 2017-12-14 07:04 | NUR ---
RECEIVED CRITICAL LAB FOR GLUCOSE = 29, RESULT RELAYED TO MARKUS ROJAS RN
[2017-12-14 07:46] LABS: THYROID STIMULATING HORMONE 1.456 mIU/mL (0.358-3.740)
[2017-12-14] MEDS: CARVEDILOL 6.25 MG TABLET PO SCH ×2 (08:00→17:00)
[2017-12-14] MEDS: ACIDOPHILUS/BULGARICUS CHEW TAB PO SCH (08:11)
[2017-12-14] MEDS: IV NS 1000 ML 1,000 ML IV PRN ×2 (08:11→11:44)
[2017-12-14] MEDS: ASCORBIC ACID 500 MG TABLET PO SCH (08:12)
[2017-12-14] MEDS: LISINOPRIL 5 MG TABLET PO SCH (08:12)
[2017-12-14] MEDS: AMLODIPINE 10 MG TABLET PO SCH (08:12)
[2017-12-14] MEDS: REPAGLINIDE 1 MG TABLET PO SCH ×3 (08:12→16:58)
[2017-12-14] MEDS: MULTIVIT, IRON, MIN NO. 8, FA TABLET PO SCH (08:12)
[2017-12-14] MEDS: FERROUS SULFATE 325 MG TABEC PO SCH ×2 (08:12→16:58)
[2017-12-14] MEDS: DOCUSATE SODIUM 100 MG CAPSULE PO SCH (08:12)
[2017-12-14] MEDS: DIVALPROEX SPRINKLE 125 MG CAP.SPRINK PO SCH ×3 (08:12→16:58)
[2017-12-14] MEDS: ASPIRIN 81 MG TAB.CHEW PO SCH (08:12)
[2017-12-14] MEDS: CHOLECALCIFEROL 1,000 UNIT TABLET PO SCH (08:12)
[2017-12-14] MEDS: NIACIN 500 MG TABLET PO SCH (08:13)
[2017-12-14] MEDS: INSULIN GLARGINE,HUM 300 UNITS/3 ML CARTRIDGE SQ SCH ×2 (08:36→21:00)
[2017-12-14] MEDS: POLYVINYL ALCOHOL OPHT DROPS 15 ML BOTTLE EACHEYE SCH ×2 (09:37→20:56)
[2017-12-14] MEDS: PREGABALIN 50 MG CAPSULE PO SCH ×3 (10:17→17:04)
[2017-12-14 11:22] VITALS: BP 102/57
[2017-12-14 13:17] LABS: HEMATOCRIT 36.3 % (36.7-47.1); MEAN CORPUSCULAR VOLUME 84.9 fL (73.0-96.2); PLATELET COUNT (AUTO) 174 K/uL (152-348)
[2017-12-14 13:21] LABS: MEAN CORPUSCULAR HGB CONC 33 g/dL (32.5-36.3)
[2017-12-14 13:31] LABS: BASOPHILS # (AUTO) 0.1 K/uL (0.0-8.0); BASOPHILS % (AUTO) 0.1 % (0.0-2.0); EOSINOPHILS # (AUTO) 0.3 K/uL (0.0-0.7); EOSINOPHILS % (AUTO) 0.5 % (0.0-7.0); HEMOGLOBIN 11.8 g/dL (12.5-16.3); LYMPHOCYTES # (AUTO) 47.6 K/uL (20.0-40.0); LYMPHOCYTES % (AUTO) 84.8 % (20.5-51.5); MEAN CORPUSCULAR HEMOGLOBIN 24.6 uug (23.8-33.4); MONOCYTES # (AUTO) 1.5 K/uL (2.0-10.0); MONOCYTES % (AUTO) 2.6 % (0.0-11.0); NEUTROPHILS # (AUTO) 6.7 K/uL (1.8-8.9); RED BLOOD CELL COUNT(AUTO) 4.28 MIL/uL (4.06-5.63)
[2017-12-14 13:33] LABS: WHITE BLOOD COUNT (AUTO) 56.1 K/uL (3.6-10.2)
[2017-12-14 14:29] LABS: BAND % (MANUAL) 1 % (0-10); NEUTROPHILS % (MANUAL) 15 % (42-75)
[2017-12-14 14:30] LABS: LYMPHOCYTES % (MANUAL) 82 % (20-40); MONOCYTES % (MANUAL) 2 % (2-10)
[2017-12-14 16:27] VITALS: BP 139/48
[2017-12-14] MEDS: HYDROCODONE/APAP 5-325MG TABLET PO PRN (18:21)
--- NOTE | 2017-12-14 20:00 | NUR ---
Received pt and noted to be alert to self, no apparent s/s of distress at this time. Safe environment implemented. Call light within reach.
[2017-12-14 20:25] VITALS: BP 137/50
[2017-12-14] MEDS: ATORVASTATIN 10 MG TABLET PO SCH (20:57)
[2017-12-14] MEDS: DONEPEZIL 5 MG TABLET PO SCH (20:57)
[2017-12-14] MEDS: ARIPIPRAZOLE 2 MG TABLET PO SCH (20:57)
[2017-12-14] MEDS: FINASTERIDE 5 MG TABLET PO SCH (20:57)
[2017-12-14] MEDS: SERTRALINE HCL 50 MG TABLET PO SCH (20:57)
[2017-12-14] MEDS: TRAZODONE 100 MG TABLET PO SCH (20:57)
[2017-12-14] MEDS: INSULIN REGULAR, HUMAN 300 UNIT/3 ML VIAL SQ PRN (21:12)
[2017-12-14 21:30] LABS: *BILIRUBIN,URIN NEGATIVE (NEGATIVE); *BLOOD, URINE NEGATIVE (NEGATIVE); *CLARITY,URINE CLEAR (CLEAR); *COLOR,URINE YELLOW (YELLOW); *KETONES,URINE NEGATIVE (NEGATIVE); *PROTEIN,URINE NEGATIVE (NEGATIVE); *UROBILINOGEN,URINE 0.2 E.U./dl (NORMAL); LEUKOCYTE ESTERASE ,URINE NEGATIVE (NEGATIVE); NITRITE, URINE NEGATIVE (NEGATIVE); UGLUCOSE TRACE (NEGATIVE)
--- NOTE | 2017-12-14 21:30 | NUR ---
Paged Dr. Nguyễn regarding patient's latest blood sugar at 141. Received orders to hold 2100 Lantus and Regular Insulin tonight. Will continue to monitor closely.
[2017-12-14 21:38] LABS: MUCUS,URINE FEW /LPF (0-FEW); WBC,URINE NONE SEEN /HPF (0-3)
[2017-12-15 00:47] VITALS: BP 140/61
[2017-12-15] MEDS: IV NS 1000 ML 1,000 ML IV PRN (04:00)
[2017-12-15 05:06] VITALS: BP 152/58
[2017-12-15] MEDS: PANTOPRAZOLE SODIUM 40 MG TABLET.DR PO SCH (06:28)
[2017-12-15] MEDS: DEXTROSE 50% 50 ML DISP.SYRIN IV PRN (06:29)
[2017-12-15] MEDS: CLONIDINE HCL 0.1 MG TABLET PO SCH ×2 (06:29→14:34)
[2017-12-15] MEDS: BLOOD SUGAR DIAGNOSTIC 1 EACH STRIP VI SCH ×4 (06:29→16:23)
--- NOTE | 2017-12-15 06:59 | NUR ---
Pt slept intermittently, no s/s of acute distress noted at this time. Frequent repositioning. 0630 blood sugar this am noted to be 37. D50 IV administered and rechecked noted to be 140. All needs attended to. Safe environment implemented. Call light within reach. Will endorse to day shift nurse accordingly.
[2017-12-15 07:17] LABS: BASOPHILS % (AUTO) 0.1 % (0.0-2.0); MEAN CORPUSCULAR HEMOGLOBIN 27.5 uug (23.8-33.4)
[2017-12-15 07:20] LABS: BASOPHILS # (AUTO) 0.1 K/uL (0.0-8.0); EOSINOPHILS # (AUTO) 0.4 K/uL (0.0-0.7); EOSINOPHILS % (AUTO) 0.7 % (0.0-7.0); LYMPHOCYTES # (AUTO) 48.7 K/uL (20.0-40.0); MEAN CORPUSCULAR HGB CONC 33 g/dL (32.5-36.3); MONOCYTES # (AUTO) 1.1 K/uL (2.0-10.0); MONOCYTES % (AUTO) 1.9 % (0.0-11.0); NEUTROPHILS # (AUTO) 7.7 K/uL (1.8-8.9); NEUTROPHILS % (AUTO) 13.3 % (38.5-71.5)
[2017-12-15 07:27] LABS: HEMATOCRIT 32.8 % (36.7-47.1); HEMOGLOBIN 10.9 g/dL (12.5-16.3); MEAN CORPUSCULAR VOLUME 82.9 fL (73.0-96.2); RED BLOOD CELL COUNT(AUTO) 3.95 MIL/uL (4.06-5.63)
[2017-12-15 07:28] LABS: PLATELET COUNT (AUTO) 197 K/uL (152-348)
[2017-12-15 07:32] LABS: WHITE BLOOD COUNT (AUTO) 57.5 K/uL (3.6-10.2)
--- NOTE | 2017-12-15 08:00 | NUR ---
AWAKE ALERT AND VERBALLY RESPONSIVE NO SS OF PAIN OR DISTRESS. CLOSELY MONITORED FOR HYPOGLYCEMIA. WILL MONITOR BLOOD SUGAR ORDERED
[2017-12-15] MEDS: ASPIRIN 81 MG TAB.CHEW PO SCH (08:10)
[2017-12-15] MEDS: PREGABALIN 50 MG CAPSULE PO SCH ×3 (08:10→16:18)
[2017-12-15] MEDS: DIVALPROEX SPRINKLE 125 MG CAP.SPRINK PO SCH ×3 (08:10→16:18)
[2017-12-15] MEDS: DOCUSATE SODIUM 100 MG CAPSULE PO SCH (08:10)
[2017-12-15] MEDS: CHOLECALCIFEROL 1,000 UNIT TABLET PO SCH (08:10)
[2017-12-15] MEDS: ACIDOPHILUS/BULGARICUS CHEW TAB PO SCH (08:10)
[2017-12-15] MEDS: ASCORBIC ACID 500 MG TABLET PO SCH (08:10)
[2017-12-15] MEDS: MULTIVIT, IRON, MIN NO. 8, FA TABLET PO SCH (08:10)
[2017-12-15] MEDS: AMLODIPINE 10 MG TABLET PO SCH (08:11)
[2017-12-15] MEDS: FERROUS SULFATE 325 MG TABEC PO SCH ×2 (08:11→16:18)
[2017-12-15] MEDS: LISINOPRIL 5 MG TABLET PO SCH (08:11)
[2017-12-15] MEDS: CARVEDILOL 6.25 MG TABLET PO SCH (08:15)
[2017-12-15] MEDS: REPAGLINIDE 1 MG TABLET PO SCH ×3 (08:15→16:18)
[2017-12-15] MEDS: NIACIN 500 MG TABLET PO SCH (08:16)
[2017-12-15] MEDS: POLYVINYL ALCOHOL OPHT DROPS 15 ML BOTTLE EACHEYE SCH (08:17)
[2017-12-15 08:18] LABS: CARBON DIOXIDE 28 mmol/L (21-32); CHLORIDE 95 mmol/L (98-107); CREATININE 0.8 mg/dL (0.6-1.3); MAGNESIUM 1.7 mg/dL (1.8-2.4); PHOSPHOROUS 3.4 mg/dL (2.5-4.9); UREA NITROGEN, BLOOD 10 mg/dL (7-18)
[2017-12-15] MEDS: INSULIN GLARGINE,HUM 300 UNITS/3 ML CARTRIDGE SQ SCH (08:18)
[2017-12-15 08:21] LABS: GLUCOSE 50 mg/dL (74-106)
[2017-12-15 09:06] LABS: LYMPHOCYTES % (MANUAL) 81 % (20-40); MONOCYTES % (MANUAL) 2 % (2-10); NEUTROPHILS % (MANUAL) 17 % (42-75)
[2017-12-15] MEDS ORDERED: MAGNESIUM SULFATE/D5W 100 ML IV SCH (10:45)
[2017-12-15 11:29] VITALS: BP 149/56
--- NOTE | 2017-12-15 12:00 | NUR ---
SEEN BY DR RAMOS WITH DC ORDER NEEL TO [facility]
[2017-12-15] MEDS: INSULIN REGULAR, HUMAN 300 UNIT/3 ML VIAL SQ PRN ×2 (12:30→16:25)
[2017-12-15] MEDS ORDERED: INSU100V10 SQ ×2 (12:46)
[2017-12-15] MEDS ORDERED: ACID1TAB4 PO (12:46)
[2017-12-15 15:06] VITALS: BP 142/58
[2017-12-15 15:24] VITALS: BP 134/87
--- NOTE | 2017-12-15 16:03 | NUR ---
NO SS OF PAIN OR DISTRESS. FOR TRANSFER TO [facility]
--- NOTE | 2017-12-15 17:03 | NUR ---
discharged to [facility] via ambulance family at bedside belongings given to son
== END 2017-12-15 17:20 | DRG 643 ==
LOC: ER 11:12 → TELE 12:44 → MED 12-14 20:35
PROVIDERS: ADMIT Internal Medicine; ATTEND Internal Medicine
DX: E22.2 Syndrome of inappropriate secretion of antidiuretic hormone (principal); G92 Toxic encephalopathy; C91.10 Chronic lymphocytic leukemia of B-cell type not having achieved remission; I50.42 Chronic combined systolic (congestive) and diastolic (congestive) heart failure; D68.59 Other primary thrombophilia; T43.225A Adverse effect of selective serotonin reuptake inhibitors, initial encounter; Y92.128 Other place in nursing home as the place of occurrence of the external cause; I25.5 Ischemic cardiomyopathy; Z79.899 Other long term (current) drug therapy; Z79.82 Long term (current) use of aspirin; E78.5 Hyperlipidemia, unspecified; I25.10 Atherosclerotic heart disease of native coronary artery without angina pectoris; I11.0 Hypertensive heart disease with heart failure; G30.9 Alzheimer's disease, unspecified; F02.80 Dementia in other diseases classified elsewhere, unspecified severity, without behavioral disturbance, psychotic disturbance, mood disturbance, and anxiety; E11.65 Type 2 diabetes mellitus with hyperglycemia; Z90.2 Acquired absence of lung [part of]; Z85.118 Personal history of other malignant neoplasm of bronchus and lung; Z99.3 Dependence on wheelchair; N40.0 Benign prostatic hyperplasia without lower urinary tract symptoms; Z79.4 Long term (current) use of insulin; M19.90 Unspecified osteoarthritis, unspecified site; K21.9 Gastro-esophageal reflux disease without esophagitis; I44.7 Left bundle-branch block, unspecified; G20 Parkinson's disease; E11.649 Type 2 diabetes mellitus with hypoglycemia without coma; E11.51 Type 2 diabetes mellitus with diabetic peripheral angiopathy without gangrene; M48.061 Spinal stenosis, lumbar region without neurogenic claudication; I25.2 Old myocardial infarction; F25.0 Schizoaffective disorder, bipolar type; D63.0 Anemia in neoplastic disease
CPT/HCPCS: 36415; 70030-TC; 70450; 71045; 83605; 83690; 83735; 84100; 84300; 84443; 84550; 85025; 85730; 87040; 87086; 93005; A4663; G0378; J1815; J3475; J3490; J7030; J7050

== ENCOUNTER 2018-05-28 08:17 | Inpatient (IN) | payer MEDICARE, MEDICAID ==
[~2018-05-28] VITALS: Ht 167.6 cm; Wt 62.1 kg
[~2018-05-28 08:17] MED LIST changes: +ACID1TAB4 PO; +ARIP2TAB3 PO; -BISA10SU8 RC; +CHOL10002 PO; +CLON0.1T PO; +DEXT15DR6 OP; +FINA5TAB3 PO; +HYDR-4384 PO; -HYDR-552 PO; -LEVO500T2 PO; -MELO-107 PO; -NITR50CA4 PO; -PANT40TA2 PO; -QUET50TA PO; -TOLT4CAP PO
[2018-05-28] MEDS ORDERED: IV NORMAL SALINE 1000 ML BAG IV ONE (08:30)
--- NOTE | 2018-05-28 08:48 | NUR ---
PT A/OX1, WHICH IS PT'S BASELINE ORIENTATION, BIB PRIVATE AMBULANCE FROM [facility] C/O FEVER. PER REPORT FROM SENDING FACILITY, PT WAS FEBRILE W/ A TEMP OF 101 F LAST NIGHT AND WAS ADMINISTERED 650 OF ACETAMINOPHEN. UPON ARRIVAL, PT'S ORAL TEMP IS 99.1. PT PRESENTS W/ REDNESS AND EDEMA ON LLE, REPORTS PAIN. UNABLE TO ASSESS THE PAIN ANY FURTHER. VS WNL. PT IS TACHYPNIC, ADMIN O2 2 LPM VIA N/C.
--- NOTE | 2018-05-28 08:53 | NUR ---
ELEVATOR OPERATOR FREIGHT AT BEDSIDE.
[2018-05-28 09:06] LABS: CARBON DIOXIDE 25 mmol/L (21-32); CHLORIDE 95 mmol/L (98-107); CREATININE 1.6 mg/dL (0.6-1.3); GLUCOSE 191 mg/dL (74-106); POTASSIUM 3.9 mmol/L (3.5-5.1); UREA NITROGEN, BLOOD 24 mg/dL (7-18)
[2018-05-28 09:07] LABS: BASOPHILS # (AUTO) 0.3 K/uL (0.0-8.0); BASOPHILS % (AUTO) 0.6 % (0.0-2.0); EOSINOPHILS # (AUTO) 0.2 K/uL (0.0-0.7); EOSINOPHILS % (AUTO) 0.4 % (0.0-7.0); HEMATOCRIT 41.1 % (36.7-47.1); LYMPHOCYTES # (AUTO) 36.3 K/uL (20.0-40.0); LYMPHOCYTES % (AUTO) 62.9 % (20.5-51.5); MEAN CORPUSCULAR HEMOGLOBIN 26.4 uug (23.8-33.4); MEAN CORPUSCULAR HGB CONC 32 g/dL (32.5-36.3); MEAN CORPUSCULAR VOLUME 83.3 fL (73.0-96.2); MONOCYTES # (AUTO) 1.4 K/uL (2.0-10.0); MONOCYTES % (AUTO) 2.5 % (0.0-11.0); NEUTROPHILS # (AUTO) 19.3 K/uL (1.8-8.9); NEUTROPHILS % (AUTO) 33.6 % (38.5-71.5); PLATELET COUNT (AUTO) 236 K/uL (152-348); RED BLOOD CELL COUNT(AUTO) 4.94 MIL/uL (4.06-5.63)
[2018-05-28 09:12] LABS: ALANINE AMINOTRANSFERASE 11 U/L (16-63); ALKALINE PHOSPHATASE 105 U/L (50-136); ASPARTATE AMINOTRANSFERASE 10 U/L (15-37); BILIRUBIN,DIRECT 0.1 mg/dL (0.0-0.2); BILIRUBIN,TOTAL 0.4 mg/dL (0.2-1.0)
[2018-05-28 09:13] LABS: WHITE BLOOD COUNT (AUTO) 57.6 K/uL (3.6-10.2)
[2018-05-28] MEDS ORDERED: ARIP2TAB3 PO ×2 (09:15→09:39)
[2018-05-28] MEDS ORDERED: INSU100I19 SQ ×4 (09:15→09:39)
[2018-05-28] MEDS ORDERED: ACET325T53 PO (09:15)
[2018-05-28] MEDS ORDERED: MIRT15TA7 PO ×2 (09:15→09:39)
[2018-05-28] MEDS ORDERED: CARV25TA PO ×2 (09:15→09:39)
[2018-05-28] MEDS ORDERED: HYDR-4077 PO ×2 (09:15→09:39)
[2018-05-28] MEDS ORDERED: FINA5TAB3 PO ×2 (09:15→09:39)
[2018-05-28] MEDS ORDERED: DONE5TAB34 PO ×2 (09:15→09:39)
[2018-05-28] MEDS ORDERED: LACT1CAP7 PO ×2 (09:15→09:50)
[2018-05-28] MEDS ORDERED: ATOR10TA PO ×2 (09:15→09:39)
[2018-05-28 09:22] LABS: LIPASE 33 U/L (73-393)
[2018-05-28] MEDS ORDERED: AMLO10TA4 PO ×2 (09:26→09:39)
[2018-05-28] MEDS ORDERED: PIPERACILLIN SODIUM/TAZOBACTAM 3.375 G in IV DEXTROSE 5% 50 ML IV ONE (09:30)
[2018-05-28] MEDS ORDERED: VANCOMYCIN IV 1,000 MG in IV DEXTROSE 5% 250 ML IV ONE (09:30)
[2018-05-28] MEDS ORDERED: PIPERACILLIN/TAZOBACTAM/D5W 50 ML IV ONE (09:32)
[2018-05-28] MEDS ORDERED: VANCOMYCIN IV 200 ML ONE (09:32)
[2018-05-28 09:37] LABS: BAND % (MANUAL) 2 % (0-10); LYMPHOCYTES % (MANUAL) 70 % (20-40); MONOCYTES % (MANUAL) 1 % (2-10); NEUTROPHILS % (MANUAL) 25 % (42-75)
[2018-05-28] MEDS ORDERED: LINA145C PO (09:39)
[2018-05-28] MEDS ORDERED: HYDR-4384 PO (09:39)
[2018-05-28] MEDS ORDERED: DOCU100C36 PO (09:39)
[2018-05-28] MEDS ORDERED: MULT-447 PO (09:39)
[2018-05-28] MEDS ORDERED: DICY10CA13 PO (09:39)
[2018-05-28] MEDS ORDERED: ASCO-375 PO (09:39)
[2018-05-28] MEDS ORDERED: PREG100C PO (09:39)
[2018-05-28] MEDS ORDERED: CLON0.1T PO (09:39)
[2018-05-28] MEDS ORDERED: FERR325T24 PO (09:39)
[2018-05-28] MEDS ORDERED: CHOL10002 PO (09:39)
[2018-05-28] MEDS ORDERED: DEXT15DR6 OP (09:39)
[2018-05-28] MEDS ORDERED: DIVA125C2 PO (09:39)
[2018-05-28] MEDS ORDERED: ASPI81TA31 PO (09:39)
--- NOTE | 2018-05-28 09:39 | NUR ---
Pt. admitted to M/S 302, under care of HELIO. Belongs List completed
--- NOTE | 2018-05-28 09:39 | NUR ---
ADMITTING REPORT GIVEN TO OSBALDO OVALLE.
[2018-05-28] MEDS ORDERED: CRAN450T9 PO (09:50)
[2018-05-28] MEDS ORDERED: INSU500I SQ (09:56)
--- NOTE | 2018-05-28 10:00 | NUR ---
RECEIVED PATIENT FROM ER VIA GURNEY. ADMITTED TO ROOM 302 MEDSUR. AAOX1 FARSI SPEAKING, UNDERSTANDS LITTLE GUINEAN. ON O2 @ 2LPM VIA NC WELL TOLERATED. AFEBRILE. IV ACCESS ON THE RIGHT HAND #22 INTACT AND PATENT RUNNING VANCOMYCIN @100CC/HR INFUSING WELL. COMFORT MEASURES PROVIDED. CALL LIGHT WITHIN REACH. FERNANDO CADET AWARE. WILL CONTINUE TO MONITOR CLSOELY.
[2018-05-28] MEDS ORDERED: IV NS 1000 ML 1,000 ML IV PRN (10:23)
[2018-05-28] MEDS ORDERED: DICYCLOMINE HCL 10 MG CAPSULE PO PRN (10:30)
[2018-05-28] MEDS ORDERED: ALBUTEROL SULFATE 2.5 MG/3 ML NEBU IH PRN (10:30)
[2018-05-28] MEDS ORDERED: ACETAMINOPHEN 650 MG SUPP.RECT RC PRN (10:30)
[2018-05-28] MEDS ORDERED: ONDANSETRON 4 MG/2 ML VIAL IV PRN (10:30)
[2018-05-28] MEDS ORDERED: PIPERACILLIN/TAZOBACTAM/D5W 50 ML IV SCH (10:30)
[2018-05-28] MEDS ORDERED: ZOLPIDEM 5 MG TABLET PO PRN (10:30)
[2018-05-28] MEDS ORDERED: DEXTROSE 50% 50 ML DISP.SYRIN IV PRN (10:30)
[2018-05-28 10:40] VITALS: BP 131/42
--- NOTE | 2018-05-28 11:26 | NUR ---
CLINICAL PHARMACY NOTE: VANCOMYCIN DOSING Request for vancomycin dosing on 78 y/o male 5'6" 152lbs for left lower extremity cellulitis: patient has history of CLL (high WBC count0 Temp 98.8 BUN 24 Scr 1.6 WBC 57.6 Bands 2 also on Zosyn. Received vancomycin 1gm in ER. Continue vancomycin 1gm ivpb q28hr. Estimated trough 14.6. Will order trough level prior to 4 th dose. Will continue to monitor.
[2018-05-28] MEDS: BLOOD SUGAR DIAGNOSTIC 1 EACH STRIP VI SCH ×3 (11:57→20:31)
[2018-05-28] MEDS: INSULIN REGULAR, HUMAN 300 UNIT/3 ML VIAL SQ PRN ×3 (12:47→20:23)
[2018-05-28] MEDS ORDERED: PREGABALIN 50 MG CAPSULE PO SCH (13:00)
[2018-05-28] MEDS ORDERED: PREGABALIN 100 MG CAPSULE PO SCH (13:00)
[2018-05-28] MEDS: DIVALPROEX SPRINKLE 125 MG CAP.SPRINK PO SCH ×2 (13:42→17:22)
[2018-05-28] MEDS: CLONIDINE HCL 0.1 MG TABLET PO SCH ×2 (13:43→22:00)
[2018-05-28] MEDS: PIPERACILLIN/TAZOBACTAM/D5W 2.25 G in PREMIXED 1 EACH IV SCH ×2 (15:11→20:18)
[2018-05-28 15:30] VITALS: BP 111/47
[2018-05-28] MEDS: hydrALAZINE HCL 50 MG TABLET PO SCH (17:00)
[2018-05-28] MEDS: FERROUS SULFATE 325 MG TABEC PO SCH (17:21)
[2018-05-28] MEDS: PREGABALIN 50 MG CAPSULE PO SCH (17:21)
[2018-05-28] MEDS: CARVEDILOL 25 MG TABLET PO SCH (19:03)
[2018-05-28 19:13] VITALS: BP 123/48
--- NOTE | 2018-05-28 19:20 | NUR ---
Received patient lying in bed. Asleep but arouse to verbal and tactile stimuli. Mumbling only. Appears weak and lethargic. In no acute distress. On O2 at 2LPM via NC in place. O2 sat at 98%. IV site on right hand intact and patent. IVF infusing. LLE red in apperance and warm to touch. Continue to monitor patient.
--- NOTE | 2018-05-28 20:15 | NUR ---
Patient with temperature of 102.1 axillary. Cooling measures provided and will given Tylenol 650mg suppository for fever. Informed WEB ARCHITECT Melissa Bourne with order to increase IVF NS to 100ml/hr. Order noted and carried out. Continue to monitor.
[2018-05-28] MEDS: DONEPEZIL 5 MG TABLET PO SCH (20:18)
[2018-05-28] MEDS: FINASTERIDE 5 MG TABLET PO SCH (20:18)
[2018-05-28] MEDS: ATORVASTATIN 10 MG TABLET PO SCH (20:18)
[2018-05-28] MEDS: INSULIN GLARGINE,HUM 300 UNITS/3 ML CARTRIDGE SQ SCH (20:24)
--- NOTE | 2018-05-28 20:50 | NUR ---
patient seen by DAVID Young with new medication orders given. Also gave verbal order to place Mccray catheter. All orders will be carried out.
[2018-05-28] MEDS ORDERED: INSULIN DETEMIR 300 UNIT/3 ML CARTRIDGE SQ SCH (21:00)
[2018-05-28] MEDS: CLOTRIMAZOLE 1% CREAM 30 GM TUBE TOP SCH (21:00)
[2018-05-28] MEDS ORDERED: ENOXAPARIN SODIUM 40 MG/0.4 ML DISP.SYRIN SQ SCH (21:00)
--- NOTE | 2018-05-28 21:25 | NUR ---
Recheck patient temperature, now 99.1 axillary. Will continue to provide cooling measures.
[2018-05-28] MEDS ORDERED: FLUCONAZOLE 200 MG/NS 100ML IV 100 MG in PREMIXED 1 EACH IV ONE (21:30)
[2018-05-28] MEDS ORDERED: FLUCONAZOLE 200 MG/100 ML PIGGYBACK ONE (21:55)
[2018-05-28] MEDS: IV NS 1000 ML 1,000 ML IV PRN (22:13)
[2018-05-28 23:02] LABS: *BILIRUBIN,URIN NEGATIVE (NEGATIVE); *BLOOD, URINE NEGATIVE (NEGATIVE); *CLARITY,URINE SLIGHTLY CLOUDY (CLEAR); *COLOR,URINE YELLOW (YELLOW); *KETONES,URINE TRACE (NEGATIVE); *UROBILINOGEN,URINE 0.2 E.U./dl (NORMAL); LEUKOCYTE ESTERASE ,URINE NEGATIVE (NEGATIVE); NITRITE, URINE NEGATIVE (NEGATIVE); PH,URINE 5.5 (5.0-8.0)
[2018-05-28 23:04] LABS: UGLUCOSE 1+ (NEGATIVE)
[2018-05-28 23:29] LABS: BACTERIA,URINE NONE SEEN /HPF (NONE SEEN); RBC,URINE 0-3 /HPF (0-3); SQUAMOUS EPITHELIAL CELL,UR FEW /HPF (NONE SEEN); TRANSITIONAL EPI CELLS,URINE FEW /LPF (NONE SEEN); WBC,URINE 0-3 /HPF (0-3)
[2018-05-28 23:30] LABS: MUCUS,URINE FEW /LPF (0-FEW); URINE AMORPHOUS URATE MODERATE /HPF
--- NOTE | 2018-05-29 01:30 | NUR ---
Requested breathing treatment for patient from RT Reyes.
[2018-05-29] MEDS: PIPERACILLIN/TAZOBACTAM/D5W 2.25 G in PREMIXED 1 EACH IV SCH ×3 (02:21→15:51)
[2018-05-29 03:12] VITALS: BP 136/44
[2018-05-29] MEDS: PANTOPRAZOLE SODIUM 40 MG TABLET.DR PO SCH (06:04)
[2018-05-29] MEDS: CLONIDINE HCL 0.1 MG TABLET PO SCH (06:05)
[2018-05-29] MEDS: HYDROCODONE/APAP 5-325MG TABLET PO PRN ×2 (06:08→14:41)
--- NOTE | 2018-05-29 06:19 | NUR ---
Unable to take daily weight. Bed scale not working. Addendum: 05/29/18 at 0620 by MARKUS ROJAS RN Amended: Links added. Addendum: 05/29/18 at 0621 sarina ROJAS RN weight from admission was 152lbs.
--- NOTE | 2018-05-29 06:25 | NUR ---
Patient AOx1, able to make some needs known. In no acute distress. On O2 at 2LPM via NC in place. O2 sat at 100%. Mild audible wheezing noted. IV site on right hand intact and patent. IVF infusing. No adverse reaction noted from IV ABX. LLE still reddened in appearance and warm to touch. Kept both LE elevated with pillow. Safety measure maintained and call cazares within reach.
[2018-05-29] MEDS: BLOOD SUGAR DIAGNOSTIC 1 EACH STRIP VI SCH ×4 (06:33→20:58)
--- NOTE | 2018-05-29 07:30 | NUR ---
PATIENT RECEIVED ON BED, AWAKE AAOX1, NO ACUTE DISTRESS NOTED ON O2 @ 2LPM VIA NC, MILD AUDIBLE WHEEZING NOTED. O2SAT WNL. IV ACCESS ON RIGHT HAND # 22 INTACT AND PATENT RUNNING NS @ 100CC/HR INFUSING WELL. AFEBRILE LLE STILL RED, SWOLLEN AND WARM TO TOUCH. BOTH LOWER EXT ELEVATED. COMFORT MEASURES PROVIDED. CALL LIGHT WITHIN REACH. WILL CONTINUE TO MONITOR CLOSELY.
[2018-05-29] MEDS: CARVEDILOL 25 MG TABLET PO SCH ×2 (08:00→17:36)
[2018-05-29] MEDS: CHOLECALCIFEROL 1,000 UNIT TABLET PO SCH (08:25)
[2018-05-29] MEDS: FERROUS SULFATE 325 MG TABEC PO SCH ×2 (08:25→17:36)
[2018-05-29] MEDS: ASPIRIN 81 MG TAB.CHEW PO SCH (08:26)
[2018-05-29] MEDS: DOCUSATE SODIUM 100 MG CAPSULE PO SCH (08:26)
[2018-05-29] MEDS: PREGABALIN 50 MG CAPSULE PO SCH ×2 (08:26→17:35)
[2018-05-29] MEDS: ACETAMINOPHEN 325 MG TABLET PO PRN (08:26)
[2018-05-29] MEDS: ASCORBIC ACID 500 MG TABLET PO SCH (08:26)
[2018-05-29] MEDS: DIVALPROEX SPRINKLE 125 MG CAP.SPRINK PO SCH ×3 (08:29→17:35)
[2018-05-29] MEDS: CLOTRIMAZOLE 1% CREAM 30 GM TUBE TOP SCH ×3 (08:36→17:36)
[2018-05-29] MEDS: INSULIN GLARGINE,HUM 300 UNITS/3 ML CARTRIDGE SQ SCH ×2 (08:41→21:09)
--- NOTE | 2018-05-29 08:45 | NUR ---
Patient noted with temp of 100.2, tylenol 650mg q6h PRN given, cooling measures provided. will continue to monitor clsoely.
[2018-05-29] MEDS ORDERED: Medication Not On Formulary EA (Linaclotide (Linzess) 145 MCG) PO SCH (09:00)
[2018-05-29] MEDS ORDERED: INSULIN DETEMIR 300 UNIT/3 ML CARTRIDGE SQ SCH (09:00)
[2018-05-29] MEDS: hydrALAZINE HCL 50 MG TABLET PO SCH ×2 (09:00→17:00)
[2018-05-29] MEDS ORDERED: ARIPIPRAZOLE 2 MG TABLET PO SCH (09:00)
[2018-05-29] MEDS: AMLODIPINE 10 MG TABLET PO SCH (09:08)
[2018-05-29] MEDS ORDERED: ZOLPIDEM 5 MG TABLET PO PRN (09:15)
--- NOTE | 2018-05-29 09:30 | NUR ---
RECHECKED TEMPERATURE, NOW 98.0 F WILL CONTINUE TO MONITOR CLOSELY.
[2018-05-29 11:05] VITALS: BP 115/43
[2018-05-29] MEDS: INSULIN REGULAR, HUMAN 300 UNIT/3 ML VIAL SQ PRN ×2 (11:55→21:06)
[2018-05-29] MEDS ORDERED: ATOR10TA PO (13:16)
[2018-05-29] MEDS: IV NS 1000 ML 1,000 ML IV PRN (13:20)
[2018-05-29 13:36] LABS: BASOPHILS # (AUTO) 0.5 K/uL (0.0-8.0); BASOPHILS % (AUTO) 1.1 % (0.0-2.0); HEMATOCRIT 28.4 % (36.7-47.1); HEMOGLOBIN 9.1 g/dL (12.5-16.3); LYMPHOCYTES % (AUTO) 57.5 % (20.5-51.5); MEAN CORPUSCULAR HEMOGLOBIN 26.6 uug (23.8-33.4); MEAN CORPUSCULAR HGB CONC 32 g/dL (32.5-36.3); MEAN CORPUSCULAR VOLUME 83.1 fL (73.0-96.2); MONOCYTES # (AUTO) 1.4 K/uL (2.0-10.0); MONOCYTES % (AUTO) 3.2 % (0.0-11.0); NEUTROPHILS # (AUTO) 17.3 K/uL (1.8-8.9); NEUTROPHILS % (AUTO) 38.2 % (38.5-71.5); PLATELET COUNT (AUTO) 168 K/uL (152-348); RED BLOOD CELL COUNT(AUTO) 3.41 MIL/uL (4.06-5.63)
[2018-05-29 13:39] LABS: WHITE BLOOD COUNT (AUTO) 45.3 K/uL (3.6-10.2)
[2018-05-29 13:51] LABS: ALANINE AMINOTRANSFERASE 12 U/L (16-63); ALKALINE PHOSPHATASE 65 U/L (50-136); ASPARTATE AMINOTRANSFERASE 10 U/L (15-37); BILIRUBIN,TOTAL 0.3 mg/dL (0.2-1.0); CARBON DIOXIDE 24 mmol/L (21-32); CHLORIDE 100 mmol/L (98-107); CREATININE 1.9 mg/dL (0.6-1.3); GLUCOSE 223 mg/dL (74-106); MAGNESIUM 1.9 mg/dL (1.8-2.4); POTASSIUM 3.8 mmol/L (3.5-5.1); TOTAL PROTEIN, SERUM 5.6 g/dL (6.4-8.2); UREA NITROGEN, BLOOD 31 mg/dL (7-18)
[2018-05-29 13:54] LABS: BAND % (MANUAL) 1 % (0-10); LYMPHOCYTES % (MANUAL) 57 % (20-40); MONOCYTES % (MANUAL) 3 % (2-10); NEUTROPHILS % (MANUAL) 39 % (42-75)
[2018-05-29] MEDS ORDERED: VANCOMYCIN IV 1 G in PREMIXED 0 EACH IV SCH (14:00)
[2018-05-29] MEDS ORDERED: CLONIDINE HCL 0.1 MG TABLET PO PRN (14:00)
[2018-05-29 14:02] LABS: THYROID STIMULATING HORMONE 0.429 mIU/mL (0.358-3.740)
[2018-05-29 14:05] LABS: CHOLESTEROL 94 mg/dL (<200); HDL CHOLESTEROL 18 mg/dL (40-60); TRIGLYCERIDES 105 MG/DL (30-150)
--- NOTE | 2018-05-29 14:09 | NUR ---
Clinical Pharmacy Note: Vancomycin Dosing per Pharmacy Subjective: Vancomycin IV to continue on this 78 yo male patient for cellulitis *(per ID note- can not r/o UTI & pna). Objective: BUN 31/Scr 1.9 WBC 45.3 Temperature 98.6 Vanco random level on 05/29 at 1330 : 6.4 (patient refused blood draw in am- drawn at 1330) ht 167.6 cm wt 68.9 kg Assessment/Plan: Due to unstable srcr , will dose by random level. Since vanco random level today is 6.4 mcg/ml, will give vanco 1 gm IVPB x1 today at 1430 Pharmacy shall check vanco renal function in am & decide when to order next random level for further dosing . Will follow daily.
[2018-05-29] MEDS ORDERED: VANCOMYCIN IV 1 G in PREMIXED 0 EACH IV ONE (14:30)
[2018-05-29 15:08] VITALS: BP 118/56
--- NOTE | 2018-05-29 18:39 | NUR ---
patient stable throughout shift. on o2 @ 2lpm via NC mild audible wheezing noted, No SOB at this time. afebrile, last temp 98.8. kept lower extremities elevated. ivf infusing well, fc in place and draining clear yellow urine. all needs attended and anticipated. call light within reach. will endorse accordingly.
[2018-05-29 19:08] VITALS: BP 145/77
--- NOTE | 2018-05-29 20:00 | NUR ---
RECEIVED RESIDENT ASLEEP IN BED RESTING COMFORTABLY. IV SITE PATENT AND INTACT. O2 RUNNING AT 2l/MIN VIA NC. NO OBSERVATION OF ACUTE DISCRESS, DISCOMFORT, OR SOB. CALL LIGHT WITHIN REACH AT ALL TIMES. WILL CONTINUE TO MONITOR.
[2018-05-29] MEDS ORDERED: CEFEPIME HCL 1 G in IV DEXTROSE 5% 50 ML IV SCH (20:30)
[2018-05-29] MEDS: ALBUTEROL SULFATE 1.25 MG/3 ML NEBU NEB PRN (20:46)
[2018-05-29] MEDS ORDERED: ENOXAPARIN SODIUM 30 MG/0.3 ML DISP.SYRIN SUBCUT SCH (21:00)
[2018-05-29] MEDS: FINASTERIDE 5 MG TABLET PO SCH (21:12)
[2018-05-29] MEDS: DONEPEZIL 5 MG TABLET PO SCH (21:13)
[2018-05-29] MEDS: MIRTAZAPINE 15 MG TABLET PO SCH (21:13)
[2018-05-29] MEDS: ATORVASTATIN 10 MG TABLET PO SCH (21:13)
[2018-05-29] MEDS: CEFEPIME HCL 1 G in IV DEXTROSE 5% 50 ML IV SCH (21:13)
[2018-05-29] MEDS: MORPHINE SULFATE 2 MG/1 ML DISP.SYRIN IV PRN (21:21)
[2018-05-30 03:14] VITALS: BP 141/54
--- NOTE | 2018-05-30 04:32 | NUR ---
RESIDENT SLEPT COMFORTABLY THROUGHOUT NIGHT. ALL DUE MEDICATIONS PROVIDED ORDERED AND TOLERATED WELL. IV SITE PATENT AND INTACT. IV ANTIBIOTIC PROVIDED ORDERED WITH NO SIGNS OF ACUTE REACTION. VS WNL AND O2 RUNNING AT 2l/MIN VIA NC. WILL REPORT ACCORDINGLY TO NEXT SHIFT.
[2018-05-30] MEDS: PANTOPRAZOLE SODIUM 40 MG TABLET.DR PO SCH (06:02)
[2018-05-30] MEDS: BLOOD SUGAR DIAGNOSTIC 1 EACH STRIP VI SCH ×4 (06:17→21:07)
--- NOTE | 2018-05-30 07:38 | NUR ---
PATIENT RECEIVED ON BED, AWAKE AAOX1-2, NO ACUTE DISTRESS NOTED ON O2 @ 2LPM VIA NC, MILD AUDIBLE WHEEZING NOTED. O2SAT WNL. IV ACCESS ON RIGHT HAND # 22 INTACT AND PATENT RUNNING NS @ 75CC/HR INFUSING WELL. AFEBRILE. LLE STILL RED, SWOLLEN AND WARM TO TOUCH. BOTH LOWER EXT ELEVATED. COMFORT MEASURES PROVIDED. CALL LIGHT WITHIN REACH. WILL CONTINUE TO MONITOR CLOSELY.
[2018-05-30] MEDS: HYDROCODONE/APAP 5-325MG TABLET PO PRN (07:57)
[2018-05-30 08:26] LABS: BASOPHILS % (AUTO) 0.1 % (0.0-2.0); CARBON DIOXIDE 27 mmol/L (21-32); CHLORIDE 101 mmol/L (98-107); CREATININE 1.5 mg/dL (0.6-1.3); GLUCOSE 71 mg/dL (74-106); PLATELET COUNT (AUTO) 156 K/uL (152-348); UREA NITROGEN, BLOOD 30 mg/dL (7-18)
[2018-05-30] MEDS: ACETAMINOPHEN 325 MG TABLET PO PRN ×2 (08:26→18:23)
[2018-05-30] MEDS: DIVALPROEX SPRINKLE 125 MG CAP.SPRINK PO SCH ×3 (08:28→17:17)
[2018-05-30] MEDS: PREGABALIN 50 MG CAPSULE PO SCH ×2 (08:28→17:17)
[2018-05-30] MEDS: DOCUSATE SODIUM 100 MG CAPSULE PO SCH (08:29)
[2018-05-30] MEDS: CARVEDILOL 25 MG TABLET PO SCH ×2 (08:29→18:25)
[2018-05-30] MEDS: ASPIRIN 81 MG TAB.CHEW PO SCH (08:29)
[2018-05-30] MEDS: FERROUS SULFATE 325 MG TABEC PO SCH ×2 (08:29→17:17)
[2018-05-30] MEDS: ASCORBIC ACID 500 MG TABLET PO SCH (08:29)
[2018-05-30 08:30] LABS: EOSINOPHILS # (AUTO) 0.1 K/uL (0.0-0.7); EOSINOPHILS % (AUTO) 0.4 % (0.0-7.0); HEMATOCRIT 28.5 % (36.7-47.1); HEMOGLOBIN 9.2 g/dL (12.5-16.3); LYMPHOCYTES # (AUTO) 23.9 K/uL (20.0-40.0); LYMPHOCYTES % (AUTO) 64.5 % (20.5-51.5); MEAN CORPUSCULAR HEMOGLOBIN 26.9 uug (23.8-33.4); MEAN CORPUSCULAR HGB CONC 32 g/dL (32.5-36.3); MEAN CORPUSCULAR VOLUME 83.5 fL (73.0-96.2); MONOCYTES # (AUTO) 1.2 K/uL (2.0-10.0); MONOCYTES % (AUTO) 3.2 % (0.0-11.0); NEUTROPHILS # (AUTO) 11.8 K/uL (1.8-8.9); NEUTROPHILS % (AUTO) 31.8 % (38.5-71.5); RED BLOOD CELL COUNT(AUTO) 3.41 MIL/uL (4.06-5.63)
[2018-05-30] MEDS: CLOTRIMAZOLE 1% CREAM 30 GM TUBE TOP SCH ×3 (08:32→17:22)
[2018-05-30] MEDS: CHOLECALCIFEROL 1,000 UNIT TABLET PO SCH (08:46)
--- NOTE | 2018-05-30 08:51 | NUR ---
PATIENT NOTED WITH ELEVATED TEMPERATURE OF 100.0F, COOLING MEASURES PROVIDED, WILL ADMINISTER TYLENOL 650 MG PO Q6HPRN ORDERED.
[2018-05-30] MEDS: INSULIN GLARGINE,HUM 300 UNITS/3 ML CARTRIDGE SQ SCH ×2 (09:00→21:09)
[2018-05-30] MEDS: ARIPIPRAZOLE 2 MG TABLET PO SCH (09:00)
--- NOTE | 2018-05-30 09:00 | NUR ---
NOTED BLOOD SUGAR WAS 67, HELD LANTUS 20 UNITS, ADMINISTERED OJ, WILL RECHECK IN 15 MINS.
[2018-05-30] MEDS: ALBUTEROL SULFATE 1.25 MG/3 ML NEBU NEB PRN (09:01)
--- NOTE | 2018-05-30 09:30 | NUR ---
RECHECKED TEMPERATURE NOW 98.0, AFTER TYLENOL GIVEN AND COOLING MEASURES WILL CONTINUE TO MONITOR CLOSELY.
[2018-05-30] MEDS: AMLODIPINE 10 MG TABLET PO SCH (09:44)
[2018-05-30] MEDS: hydrALAZINE HCL 50 MG TABLET PO SCH ×2 (09:44→17:17)
--- NOTE | 2018-05-30 10:00 | NUR ---
RECHECKED BLOOD SUGAR NOW 146. WILL CONTINUE TO MONITOR CLOSELY.
--- NOTE | 2018-05-30 10:38 | NUR ---
Clinical Pharmacy Note: Vancomycin Dosing per Pharmacy Subjective: Vancomycin IV to continue on this 78 yo male patient for cellulitis *(per ID note- can not r/o UTI & pna). Objective: BUN 30/Scr 1.5 WBC 37.0 Temperature 98.4 Vanco random level on 05/30 at 0800 : 13.7 ht 167.6 cm wt 68.9 kg Assessment/Plan: Due to unstable srcr , will dose by random level. Since vanco random level today is 13.7 mcg/ml, will give vanco 1 gm IVPB x1 today at 1100 and draw Vancomycin random tomorrow with am labs(ordered for tomorrow at 0600). Will follow the level for further dosing.
[2018-05-30 10:41] LABS: EOSINOPHILS % (MANUAL) 1 % (0-8); LYMPHOCYTES % (MANUAL) 70 % (20-40); MONOCYTES % (MANUAL) 3 % (2-10); NEUTROPHILS % (MANUAL) 26 % (42-75)
[2018-05-30 11:00] VITALS: BP 134/55
[2018-05-30] MEDS ORDERED: VANCOMYCIN IV 1 G in PREMIXED 0 EACH IV ONE (11:00)
[2018-05-30] MEDS: INSULIN REGULAR, HUMAN 300 UNIT/3 ML VIAL SQ PRN ×3 (12:03→21:11)
[2018-05-30] MEDS: IV NS 1000 ML 1,000 ML IV PRN (13:31)
[2018-05-30 16:09] VITALS: BP 116/54
[2018-05-30] MEDS ORDERED: TERBINAFINE 250 MG TABLET PO SCH (16:30)
--- NOTE | 2018-05-30 18:20 | NUR ---
NOTED WITH ELEVATED TEMP OF 100F, INITIATED COOLING MEASURES AND ADMINISTERED TYLENOL 650MG Q6HPRN. WILL REASSESS IN 30 MINS.
--- NOTE | 2018-05-30 19:02 | NUR ---
Patient in stable condition rechecked temperature now 98.6F. Son at bedside. Will endorse accordingly
--- NOTE | 2018-05-30 19:30 | NUR ---
PATIENT RECEIVED LYING IN BED. A/O X1. 0 FLACC SCALE FOR PAIN. BED IN LOWEST POSITION. SIDE RAILS UP X2.
[2018-05-30 20:36] VITALS: BP 137/58
[2018-05-30] MEDS: CEFEPIME HCL 1 G in IV DEXTROSE 5% 50 ML IV SCH (21:05)
[2018-05-30] MEDS: DONEPEZIL 5 MG TABLET PO SCH (21:06)
[2018-05-30] MEDS: FLUCONAZOLE 100 MG TABLET PO SCH (21:06)
[2018-05-30] MEDS: FINASTERIDE 5 MG TABLET PO SCH (21:06)
[2018-05-30] MEDS: MIRTAZAPINE 15 MG TABLET PO SCH (21:06)
[2018-05-30] MEDS: ATORVASTATIN 10 MG TABLET PO SCH (21:06)
[2018-05-30] MEDS: ENOXAPARIN SODIUM 40 MG/0.4 ML DISP.SYRIN SQ SCH (21:16)
[2018-05-30] MEDS ORDERED: FLUCONAZOLE 200 MG/NS 100ML IV 100 MG in PREMIXED 1 EACH IV SCH (22:00)
[2018-05-31] MEDS: IV NS 1000 ML 1,000 ML IV PRN ×2 (02:25→17:10)
[2018-05-31 05:39] VITALS: BP 124/67
[2018-05-31] MEDS: PANTOPRAZOLE SODIUM 40 MG TABLET.DR PO SCH (06:27)
[2018-05-31] MEDS: ACETAMINOPHEN 325 MG TABLET PO PRN (06:32)
[2018-05-31] MEDS: BLOOD SUGAR DIAGNOSTIC 1 EACH STRIP VI SCH ×5 (06:37→20:41)
--- NOTE | 2018-05-31 07:30 | NUR ---
REPORT GIVEN TO AM SHIFT. PATIENT A/OX1. PATIENT HAD BLOOD GLUCOSE OF 48. GAVE PATIENT DEXTROSE 50% AND RECHECKED GLUCOSE AND IT WAS 169. PATIENT IN STABLE CONDITION.
--- NOTE | 2018-05-31 08:00 | NUR ---
AWAKE ALERT AND VERBALLY RESPONSIVE BUT REMAINS CONFUSED AND DISORIENTED X3. SCREAMS ON AND OFF AND CAN BE PHYSICALLY COMBATIVE NO DISTRESS. CLOSELY MONITORED
[2018-05-31] MEDS: AMLODIPINE 10 MG TABLET PO SCH (08:59)
[2018-05-31] MEDS: ASPIRIN 81 MG TAB.CHEW PO SCH (08:59)
[2018-05-31] MEDS: CHOLECALCIFEROL 1,000 UNIT TABLET PO SCH (08:59)
[2018-05-31] MEDS: CARVEDILOL 25 MG TABLET PO SCH ×2 (08:59→16:53)
[2018-05-31] MEDS: DOCUSATE SODIUM 100 MG CAPSULE PO SCH (08:59)
[2018-05-31] MEDS: hydrALAZINE HCL 50 MG TABLET PO SCH ×2 (09:00→16:54)
[2018-05-31] MEDS: PREGABALIN 50 MG CAPSULE PO SCH ×2 (09:00→16:54)
[2018-05-31] MEDS: ASCORBIC ACID 500 MG TABLET PO SCH (09:01)
[2018-05-31] MEDS: ARIPIPRAZOLE 2 MG TABLET PO SCH (09:01)
[2018-05-31] MEDS: FERROUS SULFATE 325 MG TABEC PO SCH ×2 (09:01→16:54)
[2018-05-31] MEDS: CLOTRIMAZOLE 1% CREAM 30 GM TUBE TOP SCH ×3 (09:02→16:55)
[2018-05-31] MEDS: DIVALPROEX SPRINKLE 125 MG CAP.SPRINK PO SCH ×3 (09:03→16:54)
[2018-05-31] MEDS: INSULIN GLARGINE,HUM 300 UNITS/3 ML CARTRIDGE SQ SCH ×2 (09:09→20:46)
[2018-05-31] MEDS: Z GUARD REMEDY PASTE 57 GM TUBE TOP PRN (09:10)
[2018-05-31 09:46] LABS: BASOPHILS # (AUTO) 0.1 K/uL (0.0-8.0); BASOPHILS % (AUTO) 0.2 % (0.0-2.0); EOSINOPHILS # (AUTO) 0.1 K/uL (0.0-0.7); EOSINOPHILS % (AUTO) 0.3 % (0.0-7.0); HEMATOCRIT 29.9 % (36.7-47.1); HEMOGLOBIN 9.6 g/dL (12.5-16.3); LYMPHOCYTES # (AUTO) 20.6 K/uL (20.0-40.0); LYMPHOCYTES % (AUTO) 68.5 % (20.5-51.5); MEAN CORPUSCULAR HEMOGLOBIN 26.8 uug (23.8-33.4); MEAN CORPUSCULAR HGB CONC 32 g/dL (32.5-36.3); MEAN CORPUSCULAR VOLUME 83.4 fL (73.0-96.2); MONOCYTES # (AUTO) 1.1 K/uL (2.0-10.0); MONOCYTES % (AUTO) 3.5 % (0.0-11.0); NEUTROPHILS # (AUTO) 8.3 K/uL (1.8-8.9); NEUTROPHILS % (AUTO) 27.5 % (38.5-71.5); PLATELET COUNT (AUTO) 154 K/uL (152-348); RED BLOOD CELL COUNT(AUTO) 3.58 MIL/uL (4.06-5.63)
[2018-05-31 09:51] LABS: WHITE BLOOD COUNT (AUTO) 30.1 K/uL (3.6-10.2)
[2018-05-31 09:59] LABS: CARBON DIOXIDE 26 mmol/L (21-32); CHLORIDE 101 mmol/L (98-107); CREATININE 1.4 mg/dL (0.6-1.3); GLUCOSE 201 mg/dL (74-106); POTASSIUM 4.1 mmol/L (3.5-5.1); UREA NITROGEN, BLOOD 26 mg/dL (7-18); VANCOMYCIN,RANDOM 15.1 ug/mL (18.0-26.0)
[2018-05-31 10:13] LABS: BAND % (MANUAL) 1 % (0-10); EOSINOPHILS % (MANUAL) 1 % (0-8); LYMPHOCYTES % (MANUAL) 58 % (20-40); MONOCYTES % (MANUAL) 3 % (2-10); NEUTROPHILS % (MANUAL) 36 % (42-75)
--- NOTE | 2018-05-31 10:39 | NUR ---
Clinical Pharmacy Note: Vancomycin Dosing per Pharmacy Subjective: Vancomycin IV to continue on this 78 yo male patient for cellulitis *(per ID note- can not r/o UTI & pna). Objective: BUN 26/Scr 1.4 WBC 30.1 Temperature 99.8 Vanco random level on 05/30 at 0800 : 13.7 Vanco random level on 05/31 at 0930: 15.1 ht 167.6 cm wt 68.9 kg Assessment/Plan: Due to unstable srcr , will dose by random level. Since vanco random level today is 15.1 mcg/ml, will give vanco 1 gm IVPB x1 today at 1100 and draw Vancomycin random tomorrow with am labs(ordered for tomorrow at 0600). Will follow the level for further dosing.
[2018-05-31] MEDS ORDERED: VANCOMYCIN IV 1 G in PREMIXED 0 EACH IV ONE (11:00)
[2018-05-31 11:14] VITALS: BP 138/49
[2018-05-31] MEDS: INSULIN REGULAR, HUMAN 300 UNIT/3 ML VIAL SQ PRN ×2 (12:20→16:57)
--- NOTE | 2018-05-31 13:08 | NUR ---
NO SS OF PAIN OR DISTRESS WITH O2 AT 2L NC. CONTINUE WITH ANTIBIOTICS FOR LLE CELLULITIS. LEFT LEG REMAINS BLISTERED AND RED, 2-3 PLUS EDEMA. ELEVATED WITH PILLOWS.
[2018-05-31 15:39] VITALS: BP 141/68
--- NOTE | 2018-05-31 17:32 | NUR ---
PLAN DC IN AM IF STABLE
--- NOTE | 2018-05-31 19:56 | NUR ---
PATIENT RESTING COMFORTABLY IN BED AT THIS TIME. NO SIGNS OF DISTRESS. IVF RUNNING AT THIS TIME. SAFETY MEASURES IMPLEMENTED. BED ALARM ON, CALL LIGHT WITHIN REACH. WILL CONTINUE TO MONITOR UNTIL END OF SHIFT.
[2018-05-31 20:04] VITALS: BP 130/62
[2018-05-31] MEDS: DONEPEZIL 5 MG TABLET PO SCH (20:35)
[2018-05-31] MEDS: MIRTAZAPINE 15 MG TABLET PO SCH (20:35)
[2018-05-31] MEDS: FLUCONAZOLE 100 MG TABLET PO SCH (20:36)
[2018-05-31] MEDS: CEFEPIME HCL 1 G in IV DEXTROSE 5% 50 ML IV SCH (20:36)
[2018-05-31] MEDS: FINASTERIDE 5 MG TABLET PO SCH (20:36)
[2018-05-31] MEDS: ATORVASTATIN 10 MG TABLET PO SCH (20:36)
[2018-05-31] MEDS: ENOXAPARIN SODIUM 40 MG/0.4 ML DISP.SYRIN SQ SCH (20:48)
--- NOTE | 2018-05-31 21:35 | NUR ---
Patient's HS dose of Lantus held due to blood sugar of 80. Hypoglycemia prevention implemented. No coverage given for Humulin per sliding scale. Will continue to monitor for signs of hypoglycemia. One apple sauce offered to patient and patient tolerated well.
--- NOTE | 2018-06-01 01:55 | NUR ---
HAND OFF REPORT GIVEN TO OSBALDO MARTINEZ.
[2018-06-01] MEDS: PANTOPRAZOLE SODIUM 40 MG TABLET.DR PO SCH (06:20)
[2018-06-01] MEDS: ACETAMINOPHEN 325 MG TABLET PO PRN (06:21)
[2018-06-01] MEDS: BLOOD SUGAR DIAGNOSTIC 1 EACH STRIP VI SCH ×4 (06:24→20:23)
[2018-06-01 06:37] VITALS: BP 157/51
--- NOTE | 2018-06-01 07:10 | NUR ---
resting in bed with eyes closed no ss of pain or distress
--- NOTE | 2018-06-01 07:11 | NUR ---
PATIENT SLEEPING, NO S/S OF PAIN OR ACUTE DISTRESS AT PRESENT. TYLENOL PRN WAS GIVEN FOR LOW GRADE FEVER. SAFETY AND COMFORT MEASURES IN PLACE.
[2018-06-01 07:24] LABS: ALANINE AMINOTRANSFERASE 12 U/L (16-63); ALKALINE PHOSPHATASE 71 U/L (50-136); ASPARTATE AMINOTRANSFERASE 9 U/L (15-37); BILIRUBIN,TOTAL 0.2 mg/dL (0.2-1.0); CARBON DIOXIDE 27 mmol/L (21-32); CHLORIDE 105 mmol/L (98-107); GLUCOSE 108 mg/dL (74-106); MAGNESIUM 2.1 mg/dL (1.8-2.4); PHOSPHOROUS 2.5 mg/dL (2.5-4.9); POTASSIUM 4.7 mmol/L (3.5-5.1); UREA NITROGEN, BLOOD 18 mg/dL (7-18); VANCOMYCIN,RANDOM 17.8 ug/mL (18.0-26.0)
[2018-06-01 07:28] LABS: BASOPHILS # (AUTO) 0.1 K/uL (0.0-8.0); BASOPHILS % (AUTO) 0.2 % (0.0-2.0); EOSINOPHILS # (AUTO) 0.1 K/uL (0.0-0.7)
[2018-06-01 07:30] LABS: LYMPHOCYTES # (AUTO) 28.4 K/uL (20.0-40.0); MONOCYTES # (AUTO) 0.7 K/uL (2.0-10.0); NEUTROPHILS # (AUTO) 9.1 K/uL (1.8-8.9)
[2018-06-01 07:31] LABS: HEMATOCRIT 28.9 % (36.7-47.1); HEMOGLOBIN 9.3 g/dL (12.5-16.3); MEAN CORPUSCULAR HEMOGLOBIN 26.7 uug (23.8-33.4); MEAN CORPUSCULAR HGB CONC 32 g/dL (32.5-36.3); MEAN CORPUSCULAR VOLUME 82.7 fL (73.0-96.2)
[2018-06-01 07:32] LABS: EOSINOPHILS % (AUTO) 0.3 % (0.0-7.0); LYMPHOCYTES % (AUTO) 74.2 % (20.5-51.5); MONOCYTES % (AUTO) 2.3 % (0.0-11.0); PLATELET COUNT (AUTO) 213 K/uL (152-348)
[2018-06-01 07:37] LABS: WHITE BLOOD COUNT (AUTO) 37.9 K/uL (3.6-10.2)
[2018-06-01] MEDS: IV NS 1000 ML 1,000 ML IV PRN (07:58)
[2018-06-01] MEDS: CHOLECALCIFEROL 1,000 UNIT TABLET PO SCH (08:00)
[2018-06-01] MEDS: ARIPIPRAZOLE 2 MG TABLET PO SCH (08:00)
[2018-06-01] MEDS: PREGABALIN 50 MG CAPSULE PO SCH ×2 (08:01→17:24)
[2018-06-01] MEDS: ASPIRIN 81 MG TAB.CHEW PO SCH (08:01)
[2018-06-01] MEDS: DIVALPROEX SPRINKLE 125 MG CAP.SPRINK PO SCH ×3 (08:01→17:25)
[2018-06-01] MEDS: ASCORBIC ACID 500 MG TABLET PO SCH (08:02)
[2018-06-01] MEDS: hydrALAZINE HCL 50 MG TABLET PO SCH ×2 (08:02→17:25)
[2018-06-01] MEDS: FERROUS SULFATE 325 MG TABEC PO SCH ×2 (08:02→17:25)
[2018-06-01] MEDS: DOCUSATE SODIUM 100 MG CAPSULE PO SCH (08:03)
[2018-06-01] MEDS: AMLODIPINE 10 MG TABLET PO SCH (08:03)
[2018-06-01] MEDS: CARVEDILOL 25 MG TABLET PO SCH ×2 (08:03→17:25)
[2018-06-01] MEDS: CLOTRIMAZOLE 1% CREAM 30 GM TUBE TOP SCH ×3 (08:04→17:26)
[2018-06-01] MEDS: Z GUARD REMEDY PASTE 57 GM TUBE TOP PRN (08:04)
[2018-06-01] MEDS: INSULIN GLARGINE,HUM 300 UNITS/3 ML CARTRIDGE SQ SCH ×2 (08:06→20:27)
--- NOTE | 2018-06-01 08:30 | NUR ---
PATIENT LESS RESPONSIVE BS CHECK 104, SKIN WARM AND DRY, ABLE TO EAT BREAKFAST. CLOSELY MONITORED
[2018-06-01] MEDS: ALBUTEROL SULFATE 1.25 MG/3 ML NEBU NEB PRN (09:47)
--- NOTE | 2018-06-01 10:00 | NUR ---
SEEN BY LARRY HERNANDEZ SEE NOTES
--- NOTE | 2018-06-01 10:45 | NUR ---
NOTED SLIGHT WHEEZING ON EXERTION HHN GIVEN BY RT. PATIENT SATURATION REMAINS 99%
--- NOTE | 2018-06-01 11:07 | NUR ---
Clinical Pharmacy Note: Vancomycin Dosing per Pharmacy Subjective: Vancomycin IV to continue on this 78 yo male patient for cellulitis *(per ID note- can not r/o UTI & pna). Objective: BUN 18/Scr 1.0 WBC 30.1 (05/31) Temperature 99.1 Vanco random level on 05/30 at 0800 : 13.7 Vanco random level on 05/31 at 0930: 15.1 Vanco random level today at 0600: 17.8 ht 167.6 cm wt 68.9 kg Assessment/Plan: As renal function has drastically improved, will start regimen of 1gm q19h for estimated trough of 14.25, first dose today at 1100. Will follow renal function and if Scr were to appear unstable again, may stop or adjust regimen. Otherwise will order trough before 4th scheduled dose (not ordered yet). Will follow
[2018-06-01 11:25] LABS: BAND % (MANUAL) 1 % (0-10); EOSINOPHILS % (MANUAL) 1 % (0-8); LYMPHOCYTES % (MANUAL) 70 % (20-40); MONOCYTES % (MANUAL) 2 % (2-10); NEUTROPHILS % (MANUAL) 26 % (42-75)
[2018-06-01 11:31] VITALS: BP 152/52
--- NOTE | 2018-06-01 11:45 | NUR ---
PATIENT REMAINS LETHARGIC AND HARD TO AROUSE, BLOOD SUGAR BY FINGER STICK 187. DR RAMOS AROUND AND SAW PATIENT LACTIC ACID ORDERED. PER MD HOLD SLIDING SCALE FOR NOW.
[2018-06-01] MEDS: VANCOMYCIN IV 1 G in PREMIXED 0 EACH IV SCH (11:58)
[2018-06-01] MEDS ORDERED: FUROSEMIDE 20 MG/2 ML VIAL IV ONE (14:15)
[2018-06-01 14:31] LABS: *BILIRUBIN,URIN NEGATIVE (NEGATIVE); *CLARITY,URINE SLIGHTLY CLOUDY (CLEAR); *COLOR,URINE YELLOW (YELLOW); *KETONES,URINE NEGATIVE (NEGATIVE); *UROBILINOGEN,URINE 0.2 E.U./dl (NORMAL); LEUKOCYTE ESTERASE ,URINE NEGATIVE (NEGATIVE); NITRITE, URINE NEGATIVE (NEGATIVE); PH,URINE 5.5 (5.0-8.0); UGLUCOSE 1+ (NEGATIVE)
[2018-06-01 14:40] LABS: *BLOOD, URINE 1+ (NEGATIVE)
[2018-06-01 14:42] LABS: COARSE GRANULAR CASTS,URINE 0-3 /LPF; MUCUS,URINE MANY /LPF (0-FEW); RBC,URINE 20-50 /HPF (0-3); WBC,URINE 0-3 /HPF (0-3)
[2018-06-01 15:22] VITALS: BP 142/62
--- NOTE | 2018-06-01 17:00 | NUR ---
LARRY NOTIFIED OF PATIENT STATUS NO NEW ORDER BUT CXR IN AM
[2018-06-01] MEDS: INSULIN REGULAR, HUMAN 300 UNIT/3 ML VIAL SQ PRN ×2 (17:29→20:28)
--- NOTE | 2018-06-01 18:00 | NUR ---
PATIENT MORE AWAKE AND VERBALLY RESPONSIVE WITH FAMILY AROUND, FOLLOWS DIRECTION AND ABLE TO CONSUME 75% OF DINNER. ASPIRATION PRECAUTION OBSERVED
--- NOTE | 2018-06-01 19:20 | NUR ---
Received patient awake in bed, not in any form of distress. Patient able to verbalize needs but speech a little bit garbled. With oxygen support at 3lpm via nasal cannula, tolerated. Patient with IV access on the right hand, patent and intact. Noted bilateral arm and leg swelling. With redness on the left leg, noted with cellulitis, still awaiting podiatry consult. Bed in low position, locked, side rails up x 2. Noise and lights subdued. Will continue to monitor.
[2018-06-01] MEDS: MIRTAZAPINE 15 MG TABLET PO SCH (20:08)
[2018-06-01] MEDS: FINASTERIDE 5 MG TABLET PO SCH (20:08)
[2018-06-01] MEDS: DONEPEZIL 5 MG TABLET PO SCH (20:08)
[2018-06-01] MEDS: ATORVASTATIN 10 MG TABLET PO SCH (20:08)
[2018-06-01] MEDS: FLUCONAZOLE 100 MG TABLET PO SCH (20:08)
[2018-06-01 20:12] VITALS: BP 146/52
[2018-06-01] MEDS: CEFEPIME HCL 1 G in IV DEXTROSE 5% 50 ML IV SCH (20:17)
[2018-06-01] MEDS: ENOXAPARIN SODIUM 40 MG/0.4 ML DISP.SYRIN SQ SCH (20:28)
--- NOTE | 2018-06-02 00:45 | NUR ---
Received patient from OSBALDO Cardoso. Patient is asleep in his bed. Bed in low position, locked, side rails up x 2, call light within reach. Will continue to monitor. Comfort and safety provided.
[2018-06-02 04:00] VITALS: BP 152/57
[2018-06-02] MEDS: VANCOMYCIN IV 1 G in PREMIXED 0 EACH IV SCH (06:32)
[2018-06-02] MEDS: BLOOD SUGAR DIAGNOSTIC 1 EACH STRIP VI SCH ×4 (06:46→21:22)
[2018-06-02 06:47] LABS: BASOPHILS # (AUTO) 0.1 K/uL (0.0-8.0); BASOPHILS % (AUTO) 0.2 % (0.0-2.0); EOSINOPHILS # (AUTO) 0.2 K/uL (0.0-0.7); EOSINOPHILS % (AUTO) 0.5 % (0.0-7.0); HEMATOCRIT 29.2 % (36.7-47.1); HEMOGLOBIN 9.4 g/dL (12.5-16.3); LYMPHOCYTES % (AUTO) 72.1 % (20.5-51.5); MEAN CORPUSCULAR HEMOGLOBIN 26.5 uug (23.8-33.4); MEAN CORPUSCULAR HGB CONC 32 g/dL (32.5-36.3); MEAN CORPUSCULAR VOLUME 82.4 fL (73.0-96.2); MONOCYTES # (AUTO) 0.9 K/uL (2.0-10.0); MONOCYTES % (AUTO) 2.4 % (0.0-11.0); NEUTROPHILS # (AUTO) 9.3 K/uL (1.8-8.9); NEUTROPHILS % (AUTO) 24.8 % (38.5-71.5); PLATELET COUNT (AUTO) 229 K/uL (152-348); RED BLOOD CELL COUNT(AUTO) 3.55 MIL/uL (4.06-5.63)
[2018-06-02 06:53] LABS: WHITE BLOOD COUNT (AUTO) 37.4 K/uL (3.6-10.2)
[2018-06-02 06:59] LABS: ALANINE AMINOTRANSFERASE 10 U/L (16-63); ALKALINE PHOSPHATASE 80 U/L (50-136); ASPARTATE AMINOTRANSFERASE 7 U/L (15-37); BILIRUBIN,TOTAL 0.3 mg/dL (0.2-1.0); CARBON DIOXIDE 35 mmol/L (21-32); CHLORIDE 101 mmol/L (98-107); CREATININE 0.9 mg/dL (0.6-1.3); GLUCOSE 88 mg/dL (74-106); MAGNESIUM 1.9 mg/dL (1.8-2.4); PHOSPHOROUS 1.7 mg/dL (2.5-4.9); POTASSIUM 4.2 mmol/L (3.5-5.1); TOTAL PROTEIN, SERUM 5.9 g/dL (6.4-8.2); UREA NITROGEN, BLOOD 15 mg/dL (7-18)
[2018-06-02] MEDS: PANTOPRAZOLE SODIUM 40 MG TABLET.DR PO SCH (07:06)
--- NOTE | 2018-06-02 07:10 | NUR ---
PATIENT IS SLEEPING, REPORT RECEIVED FROM EXECUTIVE BUSINESS COACH. NO SIGNS OF ACUTE DISTRESS. CALL LIGHT WITHIN REACH.BED IN LOW POSITION, WILL CONTINUE WITH PLAN OF CARE
--- NOTE | 2018-06-02 07:11 | NUR ---
PATIENT SLEPT MOST OF THE NIGHT, OCCASIONAL SCREAMING, DENIES PAIN, LEFT LG IS TENDER TO TOUCH. WBC IS CRITICALLY HIGH 37.4. SOLAR SALES CONSULTANT IS AWARE SINCE THERE IS NO SIGNIFICANT CHANGE FROM PREVIOUS VALUE. WBC WITH DIFF IS ORDERED.
[2018-06-02 07:12] LABS: BAND % (MANUAL) 1 % (0-10); EOSINOPHILS % (MANUAL) 1 % (0-8); LYMPHOCYTES % (MANUAL) 78 % (20-40); MONOCYTES % (MANUAL) 3 % (2-10); NEUTROPHILS % (MANUAL) 17 % (42-75)
[2018-06-02] MEDS: PREGABALIN 50 MG CAPSULE PO SCH ×2 (08:30→16:41)
[2018-06-02] MEDS: AMLODIPINE 10 MG TABLET PO SCH (08:31)
[2018-06-02] MEDS: FERROUS SULFATE 325 MG TABEC PO SCH ×2 (08:31→16:46)
[2018-06-02] MEDS: CHOLECALCIFEROL 1,000 UNIT TABLET PO SCH (08:31)
[2018-06-02] MEDS: DIVALPROEX SPRINKLE 125 MG CAP.SPRINK PO SCH ×3 (08:31→12:22)
[2018-06-02] MEDS: hydrALAZINE HCL 50 MG TABLET PO SCH ×2 (08:32→16:45)
[2018-06-02] MEDS: CARVEDILOL 25 MG TABLET PO SCH ×2 (08:33→18:12)
[2018-06-02] MEDS: DOCUSATE SODIUM 100 MG CAPSULE PO SCH (08:33)
[2018-06-02] MEDS: ASCORBIC ACID 500 MG TABLET PO SCH (08:33)
[2018-06-02] MEDS: ARIPIPRAZOLE 2 MG TABLET PO SCH (08:34)
[2018-06-02] MEDS: INSULIN GLARGINE,HUM 300 UNITS/3 ML CARTRIDGE SQ SCH ×2 (08:45→21:26)
[2018-06-02] MEDS: CLOTRIMAZOLE 1% CREAM 30 GM TUBE TOP SCH ×3 (08:46→16:47)
[2018-06-02] MEDS: ASPIRIN 81 MG TAB.CHEW PO SCH (08:51)
--- NOTE | 2018-06-02 08:55 | NUR ---
Clinical Pharmacy Note: Vancomycin Dosing per Pharmacy Subjective: Vancomycin IV to continue on this 78 yo male patient for cellulitis *(per ID note- can not r/o UTI & pna). Objective: BUN 15/Scr 0.9 WBC 37.5 Temperature 99.3 Vanco random level on 05/30 at 0800 : 13.7 Vanco random level on 05/31 at 0930: 15.1 Vanco random level today at 0600: 17.8 ht 167.6 cm wt 68.9 kg Assessment/Plan: Will continue same dose of vanco 1gm IVPB q19h for today. 3rd dose tomorrow at 0100. Will order vanco trough before 4th scheduled dose (not ordered yet). Will follow
[2018-06-02] MEDS ORDERED: SODIUM PHOSPHATE MM 7.5 MM in IV DEXTROSE 5% 100 ML IV ONE (09:00)
[2018-06-02] MEDS ORDERED: CEFEPIME HCL 1 G in IV DEXTROSE 5% 50 ML IV SCH (09:00)
[2018-06-02 11:25] VITALS: BP 136/58
[2018-06-02] MEDS: INSULIN REGULAR, HUMAN 300 UNIT/3 ML VIAL SQ PRN ×2 (12:14→21:25)
[2018-06-02] MEDS ORDERED: FUROSEMIDE 20 MG/2 ML VIAL IV ONE (12:15)
[2018-06-02] MEDS: MAGNESIUM HYDROXIDE 30 ML LIQUID UDC PO PRN (12:23)
--- NOTE | 2018-06-02 19:04 | NUR ---
REPORT WAS GIVEN TO MEDICAL ANTHROPOLOGIST RN ,PATIENT IS AWAKE AND ALERT, LASIX WAS GIVEN DURING THE DAY PER BAG MAKER GERALDINE ORDER, AFTER GIVEN MILK OF MAGNESIA WITH PRUNE JUICE PATIENT HAD A HUGE BM BLACK COLOR, BM SAMPLE WAS SENT TO LAB, ALL MEDICATION WAS GIVEN PER SCHEDULE . PATIENT TOLERATED WELL, COOPERATIVE WITH PLAN OF CARE Addendum: 06/02/18 at 1924 by JANET SHIPLEY RN PATENT HAD A 102.2 TEMPT TYLENOL 650 MG WAS GIVEN, MEDICAL ANTHROPOLOGIST RN NOTIFIED WILL CONTINUE TO MONITOR
[2018-06-02] MEDS: ACETAMINOPHEN 325 MG TABLET PO PRN (19:22)
[2018-06-02 20:00] VITALS: BP 143/56
--- NOTE | 2018-06-02 20:00 | NUR ---
Received patient asleep in bed with increased temperature. Per morning shift nurse report, PRN Tylenol was administered. Cooling measures implemented. Temperature currently at 98.6. No signs of acute distress at this time. Bilateral edema on lower extremities noted. IV on right wrist infiltrated. New IV #22 inserted on right hand. Saline locked. Patient receiving 2L NC. Mccray catheter in place with clear, yellow output. Tolerated medications crushed with apple sauce. All needs met at this time. Safety measures implemented. Call light within reach. All needs met.
[2018-06-02 20:49] LABS: *OCCULT BLOOD STOOL NEGATIVE (NEGATIVE)
[2018-06-02] MEDS: MEROPENEM 1 G in IV NORMAL SALINE 100 ML IV SCH (21:41)
[2018-06-02] MEDS: FLUCONAZOLE 100 MG TABLET PO SCH (21:41)
[2018-06-02] MEDS: ATORVASTATIN 10 MG TABLET PO SCH (21:42)
[2018-06-02] MEDS: FINASTERIDE 5 MG TABLET PO SCH (21:42)
[2018-06-02] MEDS: MIRTAZAPINE 15 MG TABLET PO SCH (21:42)
[2018-06-02] MEDS: DONEPEZIL 5 MG TABLET PO SCH (21:43)
[2018-06-03] MEDS: VANCOMYCIN IV 1 G in PREMIXED 0 EACH IV SCH ×2 (01:52→20:38)
[2018-06-03] MEDS: MORPHINE SULFATE 2 MG/1 ML DISP.SYRIN IV PRN (03:10)
[2018-06-03 05:16] VITALS: BP 145/53
[2018-06-03] MEDS: PANTOPRAZOLE SODIUM 40 MG TABLET.DR PO SCH (06:18)
--- NOTE | 2018-06-03 06:24 | NUR ---
Patient began moaning and yelling at 0300. Assessed for pain. Patient pointed on lower left extremity. PRN Morphine administered. Pain relieved. Patient awake in bed at this time. No acute distress noted. No SOB. Afebrile. All needs met. Comfort and safety measures implemented and effective. Continue plan of care. Will endorse to morning shift accordingly.
[2018-06-03] MEDS: BLOOD SUGAR DIAGNOSTIC 1 EACH STRIP VI SCH ×4 (07:38→20:54)
--- NOTE | 2018-06-03 07:58 | NUR ---
Awake, alert, oriented x 2 with periods of confusion. O2 at 2L/NC. Discussed plan of care.
[2018-06-03] MEDS: CARVEDILOL 25 MG TABLET PO SCH ×2 (09:05→17:17)
[2018-06-03] MEDS: hydrALAZINE HCL 50 MG TABLET PO SCH ×2 (09:05→17:15)
[2018-06-03] MEDS: ARIPIPRAZOLE 2 MG TABLET PO SCH (09:05)
[2018-06-03] MEDS: ASPIRIN 81 MG TAB.CHEW PO SCH (09:06)
[2018-06-03] MEDS: FERROUS SULFATE 325 MG TABEC PO SCH ×2 (09:06→17:16)
[2018-06-03] MEDS: DOCUSATE SODIUM 100 MG CAPSULE PO SCH (09:06)
[2018-06-03] MEDS: PREGABALIN 50 MG CAPSULE PO SCH ×2 (09:06→17:16)
[2018-06-03] MEDS: DIVALPROEX SPRINKLE 125 MG CAP.SPRINK PO SCH ×3 (09:06→17:15)
[2018-06-03] MEDS: ASCORBIC ACID 500 MG TABLET PO SCH (09:07)
[2018-06-03] MEDS: CHOLECALCIFEROL 1,000 UNIT TABLET PO SCH (09:07)
[2018-06-03] MEDS: CLOTRIMAZOLE 1% CREAM 30 GM TUBE TOP SCH ×3 (09:07→17:17)
[2018-06-03] MEDS: AMLODIPINE 10 MG TABLET PO SCH (09:07)
[2018-06-03] MEDS: MEROPENEM 1 G in IV NORMAL SALINE 100 ML IV SCH ×2 (09:09→23:05)
[2018-06-03] MEDS: INSULIN GLARGINE,HUM 300 UNITS/3 ML CARTRIDGE SQ SCH ×2 (09:22→20:58)
--- NOTE | 2018-06-03 10:00 | NUR ---
PT at bedside, sitting at the edge of bed, exercises done.
[2018-06-03 11:12] VITALS: BP 158/59
--- NOTE | 2018-06-03 12:29 | NUR ---
Clinical Pharmacy Note: Vancomycin Dosing per Pharmacy Subjective: Vancomycin IV to continue on this 78 yo male patient for cellulitis *(per ID note- can not r/o UTI & pna). Objective: BUN 15/Scr 0.9 (06/02) WBC 37.5 (06/02) Temperature 98.3 Vanco random level on 05/30 at 0800 : 13.7 Vanco random level on 05/31 at 0930: 15.1 Vanco random level today at 0600: 17.8 ht 167.6 cm wt 68.9 kg Assessment/Plan: Will continue same dose of vanco 1gm IVPB q19h for today. Will order vanco trough before 4th scheduled dose (ordered for today at 1930). Pharmacy shall review the level when available & adjust the dose if needed. Will follow Addendum: 06/03/18 at 2020 by TRUE CURTIS ADM VANCOMYCIN TROUGH IS 15.5. WILL CONTINUE SAME DOSE OF 1 GRAM Q19HRS.
[2018-06-03] MEDS: INSULIN REGULAR, HUMAN 300 UNIT/3 ML VIAL SQ PRN ×3 (12:34→20:57)
--- NOTE | 2018-06-03 14:00 | NUR ---
Resting comfortably. at bedside.
[2018-06-03 15:05] VITALS: BP 126/50
--- NOTE | 2018-06-03 18:33 | NUR ---
Repositioned. Kept dry and comfortable. Not in distress. Afebrile
[2018-06-03] MEDS: ACETAMINOPHEN 325 MG TABLET PO PRN (19:37)
[2018-06-03 20:00] VITALS: BP 150/55
[2018-06-03 20:10] LABS: CARBON DIOXIDE 36 mmol/L (21-32); GLUCOSE 233 mg/dL (74-106); PHOSPHOROUS 2.1 mg/dL (2.5-4.9); POTASSIUM 4.2 mmol/L (3.5-5.1); UREA NITROGEN, BLOOD 18 mg/dL (7-18)
[2018-06-03 20:15] LABS: CHLORIDE 95 mmol/L (98-107)
[2018-06-03] MEDS: FINASTERIDE 5 MG TABLET PO SCH (20:38)
[2018-06-03] MEDS: DONEPEZIL 5 MG TABLET PO SCH (20:38)
[2018-06-03] MEDS: MIRTAZAPINE 15 MG TABLET PO SCH (20:39)
[2018-06-03] MEDS: ATORVASTATIN 10 MG TABLET PO SCH (20:39)
[2018-06-03] MEDS: FLUCONAZOLE 100 MG TABLET PO SCH (20:39)
--- NOTE | 2018-06-03 21:30 | NUR ---
Received patient AAOx2 in bed. Patient appears to be confused at times. Temperature slightly elevated during change of shift. PRN Tylenol administered. Current temp 98.6. Bilateral leg edema with redness on left leg noted. Tolerated medications. No acute distress. IV on right hand intact and patent. Receiving o2 2L sat 99%. Mccray in place with clear yellow urine output. Repositioned. Legs elevated. All needs met. Continue plan of care.
[2018-06-04] MEDS: MORPHINE SULFATE 2 MG/1 ML DISP.SYRIN IV PRN (01:54)
[2018-06-04] MEDS: ACETAMINOPHEN 325 MG TABLET PO PRN ×2 (04:23→21:07)
[2018-06-04 04:58] VITALS: BP 149/63
--- NOTE | 2018-06-04 06:11 | NUR ---
Patient slept through most of the night with occasional yelling. Asked if in pain. Patient would yell "pain" and point at lower left extremity. Left leg is tender to touch. PRN Morphine administered. 0400 temperature 99.9. Tylenol given. Temperature currently 98.7. Patient appear comfortable sleeping in bed at this time. No distress. All needs met. Continue plan of care.
[2018-06-04] MEDS: BLOOD SUGAR DIAGNOSTIC 1 EACH STRIP VI SCH ×4 (06:45→20:56)
[2018-06-04] MEDS: PANTOPRAZOLE SODIUM 40 MG TABLET.DR PO SCH (06:45)
[2018-06-04] MEDS: ASCORBIC ACID 500 MG TABLET PO SCH (08:39)
[2018-06-04] MEDS: DIVALPROEX SPRINKLE 125 MG CAP.SPRINK PO SCH ×3 (08:40→18:14)
[2018-06-04] MEDS: CHOLECALCIFEROL 1,000 UNIT TABLET PO SCH (08:40)
[2018-06-04] MEDS: PREGABALIN 50 MG CAPSULE PO SCH ×2 (08:40→18:14)
[2018-06-04] MEDS: ASPIRIN 81 MG TAB.CHEW PO SCH (08:40)
[2018-06-04] MEDS: ARIPIPRAZOLE 2 MG TABLET PO SCH (08:41)
[2018-06-04] MEDS: AMLODIPINE 10 MG TABLET PO SCH (08:41)
[2018-06-04] MEDS: FERROUS SULFATE 325 MG TABEC PO SCH ×2 (08:41→18:14)
[2018-06-04] MEDS: CARVEDILOL 25 MG TABLET PO SCH ×2 (08:41→18:15)
[2018-06-04] MEDS: DOCUSATE SODIUM 100 MG CAPSULE PO SCH (08:44)
[2018-06-04] MEDS: hydrALAZINE HCL 50 MG TABLET PO SCH ×3 (09:00→18:15)
[2018-06-04] MEDS: CLOTRIMAZOLE 1% CREAM 30 GM TUBE TOP SCH ×3 (09:44→18:43)
[2018-06-04] MEDS: INSULIN GLARGINE,HUM 300 UNITS/3 ML CARTRIDGE SQ SCH ×2 (09:54→20:59)
--- NOTE | 2018-06-04 10:30 | NUR ---
Unable to start IV antibiotics this am, IV site painful to when flushing, edema noted. unable to obtain access at this time, patient with poor peripheral access, midline to be placed.
[2018-06-04 11:03] VITALS: BP 138/54
--- NOTE | 2018-06-04 11:59 | NUR ---
WOUND CARE CONSULT: PT PRESENTS WITH ODOR TO LEFT TOES WITH SOME PEELING SKIN, CRUSTED AREAS AND LEFT LOWER LEG REDNESS AND EDEMA. RT HEEL NOTED TO HAVE PEELING SKIN. RECOMMEND DPM CONSULT (ORDERED PREVIOUSLY BY TELECOM SALES CONSULTANT). DEFER TO DPM. HEELS FLOATED. ALL SKIN PROTECTION RECOMMENDATIONS DISCUSSED WITH NURSING STAFF. PT NOTED TO HAVE GENERALIZED EDEMA ALSO. WILL SEE PRN. MULLEN IN AGREEMENT WITH PLAN OF CARE. CURRENT JOON SCORE IS 13. Addendum: 06/04/18 at 1204 by MIKA CABALLERO RN SOME CRUSTING NOTED BETWEEN RT TOES ALSO WITH ODOR. Addendum: 06/04/18 at 1205 by MIKA CABALLERO RN DR GOODWIN NOTIFIED OF CONSULT.
--- NOTE | 2018-06-04 12:00 | NUR ---
patient provided with pericare, repositioned every 2 hours , patient heels offloaded elevate extremities, edema on BLE and Upper extremities as well. continue to monitor. no SOB, clear breath sounds. continue to monitor
[2018-06-04] MEDS: MEROPENEM 1 G in IV NORMAL SALINE 100 ML IV SCH ×2 (12:31→20:46)
[2018-06-04] MEDS: INSULIN REGULAR, HUMAN 300 UNIT/3 ML VIAL SQ PRN ×3 (12:32→20:58)
--- NOTE | 2018-06-04 13:32 | NUR ---
Clinical Pharmacy Note: Vancomycin Dosing per Pharmacy Subjective: Vancomycin IV to continue on this 78 yo male patient for cellulitis *(per ID note- can not r/o UTI & pna). Objective: BUN 18/1.0 WBC 37.5 (06/02) Temperature 98.7 Vanco random level on 05/30 at 0800 : 13.7 Vanco random level on 05/31 at 0930: 15.1 Vanco random level on 06/01 at 0600: 17.8 Vanco trough level on 06/03 at 1930: 15.5 ht 167.6 cm wt 68.9 kg Assessment/Plan: Will continue same dose of vanco 1gm IVPB q19h for today. Next dose due today at 1500. Will review renal function and adjust the dose if needed. Will follow
[2018-06-04 14:59] VITALS: BP 141/48
[2018-06-04 15:15] LABS: CARBON DIOXIDE 35 mmol/L (21-32); CHLORIDE 92 mmol/L (98-107); CREATININE 1.1 mg/dL (0.6-1.3); GLUCOSE 200 mg/dL (74-106); POTASSIUM 4.4 mmol/L (3.5-5.1); UREA NITROGEN, BLOOD 20 mg/dL (7-18)
[2018-06-04 15:17] LABS: EOSINOPHILS # (AUTO) 0.2 K/uL (0.0-0.7); HEMOGLOBIN 9.2 g/dL (12.5-16.3)
[2018-06-04 15:19] LABS: BASOPHILS # (AUTO) 0.1 K/uL (0.0-8.0); BASOPHILS % (AUTO) 0.2 % (0.0-2.0); EOSINOPHILS % (AUTO) 0.6 % (0.0-7.0); HEMATOCRIT 29.2 % (36.7-47.1); LYMPHOCYTES % (AUTO) 71.7 % (20.5-51.5); MEAN CORPUSCULAR HEMOGLOBIN 26.1 uug (23.8-33.4); MEAN CORPUSCULAR HGB CONC 32 g/dL (32.5-36.3); MEAN CORPUSCULAR VOLUME 82.5 fL (73.0-96.2); MONOCYTES # (AUTO) 1.5 K/uL (2.0-10.0); MONOCYTES % (AUTO) 3.4 % (0.0-11.0); NEUTROPHILS # (AUTO) 10.4 K/uL (1.8-8.9); NEUTROPHILS % (AUTO) 24.1 % (38.5-71.5); PLATELET COUNT (AUTO) 281 K/uL (152-348); RED BLOOD CELL COUNT(AUTO) 3.54 MIL/uL (4.06-5.63)
[2018-06-04 15:31] LABS: WHITE BLOOD COUNT (AUTO) 43.3 K/uL (3.6-10.2)
[2018-06-04] MEDS: VANCOMYCIN IV 1 G in PREMIXED 0 EACH IV SCH (15:47)
[2018-06-04 16:28] LABS: LYMPHOCYTES % (MANUAL) 74 % (20-40); MONOCYTES % (MANUAL) 3 % (2-10); NEUTROPHILS % (MANUAL) 23 % (42-75)
--- NOTE | 2018-06-04 19:00 | NUR ---
Received patient awake during initial rounds, HOB elevated with continuos O2 at 2L via NC, saturating 96% at this time. Midline on CLEMENTINA intact and patent with continuos IVF infusing well. Complaint of pain when touched. Both LE swollen more on (L) foot, both elevated with pillows. F/C intact, patent draining jimmy colored urine output. Made comfortable. Safety measures and fall precaution maintained. Continue care as planned.
[2018-06-04 19:14] VITALS: BP 156/51
[2018-06-04] MEDS: FLUCONAZOLE 100 MG TABLET PO SCH (20:46)
[2018-06-04] MEDS: ATORVASTATIN 10 MG TABLET PO SCH (20:46)
[2018-06-04] MEDS: MIRTAZAPINE 15 MG TABLET PO SCH (20:46)
[2018-06-04] MEDS: FINASTERIDE 5 MG TABLET PO SCH (20:46)
[2018-06-04] MEDS: DONEPEZIL 5 MG TABLET PO SCH (20:46)
--- NOTE | 2018-06-04 21:07 | NUR ---
Temp 100 oral, Tylenol 625 mg given as needed and ordered. Cooling measures initiated. Continue to monitor.
--- NOTE | 2018-06-04 22:37 | NUR ---
Report given to oncoming OSBALDO Whatley.
--- NOTE | 2018-06-04 22:40 | NUR ---
Received report. Patient is asleep. No signs of acute distress. Comfort and safety provided. Will continue to monitor.
[2018-06-05 03:11] VITALS: BP 163/62
--- NOTE | 2018-06-05 04:00 | NUR ---
patient continues to remove his nasal cannula. SpO2 on room air is 96%. No signs of distress. Continuing to monitor. Comfort and safety provided.
[2018-06-05] MEDS: MORPHINE SULFATE 2 MG/1 ML DISP.SYRIN IV PRN ×2 (04:59→15:28)
--- NOTE | 2018-06-05 05:58 | NUR ---
patient was cleaned and repositioned, Mccray care done. Sleeping comfortably. No acute distress noted through the night. Comfort and safety provided.
[2018-06-05] MEDS: PANTOPRAZOLE SODIUM 40 MG TABLET.DR PO SCH (06:24)
[2018-06-05] MEDS: BLOOD SUGAR DIAGNOSTIC 1 EACH STRIP VI SCH ×4 (06:37→22:40)
--- NOTE | 2018-06-05 07:15 | NUR ---
RECEIVED PATIENT IN BED, ASLEEP, EASILY AWOKEN. PATIENT AOX1. PATIENT DENIES PAIN AT THIS TIME. LT. ARM MIDLINE IN PLACE AND FLUSHING WELL. ALL NEEDS MET AT THIS TIME. WILL CONTINUE TO MONITOR FOR SAFETY/ FALL PREVENTION, PAIN MANAGEMENT, MEDICATION MANAGEMENT ORDERED.
[2018-06-05] MEDS: PREGABALIN 50 MG CAPSULE PO SCH ×2 (08:59→17:27)
[2018-06-05] MEDS: DOCUSATE SODIUM 100 MG CAPSULE PO SCH (08:59)
[2018-06-05] MEDS: hydrALAZINE HCL 50 MG TABLET PO SCH ×2 (09:00→17:26)
[2018-06-05] MEDS: CARVEDILOL 25 MG TABLET PO SCH ×2 (09:00→17:27)
[2018-06-05] MEDS: DIVALPROEX SPRINKLE 125 MG CAP.SPRINK PO SCH ×3 (09:00→17:27)
[2018-06-05] MEDS: CHOLECALCIFEROL 1,000 UNIT TABLET PO SCH (09:00)
[2018-06-05] MEDS: HYDROCODONE/APAP 5-325MG TABLET PO PRN (09:01)
[2018-06-05] MEDS: ASPIRIN 81 MG TAB.CHEW PO SCH (09:01)
[2018-06-05] MEDS: AMLODIPINE 10 MG TABLET PO SCH (09:01)
[2018-06-05] MEDS: FERROUS SULFATE 325 MG TABEC PO SCH ×2 (09:02→17:27)
[2018-06-05] MEDS: ASCORBIC ACID 500 MG TABLET PO SCH (09:02)
[2018-06-05] MEDS: ARIPIPRAZOLE 2 MG TABLET PO SCH (09:03)
[2018-06-05] MEDS: CLOTRIMAZOLE 1% CREAM 30 GM TUBE TOP SCH ×3 (09:03→17:27)
[2018-06-05] MEDS: MEROPENEM 1 G in IV NORMAL SALINE 100 ML IV SCH ×2 (09:16→22:01)
[2018-06-05] MEDS: INSULIN GLARGINE,HUM 300 UNITS/3 ML CARTRIDGE SQ SCH ×2 (09:18→22:54)
[2018-06-05 11:00] VITALS: BP 125/47
[2018-06-05] MEDS: VANCOMYCIN IV 1 G in PREMIXED 0 EACH IV SCH (11:38)
[2018-06-05] MEDS: INSULIN REGULAR, HUMAN 300 UNIT/3 ML VIAL SQ PRN (12:47)
[2018-06-05 12:48] LABS: BASOPHILS # (AUTO) 0.1 K/uL (0.0-8.0); BASOPHILS % (AUTO) 0.3 % (0.0-2.0); EOSINOPHILS # (AUTO) 0.2 K/uL (0.0-0.7); EOSINOPHILS % (AUTO) 0.4 % (0.0-7.0); HEMATOCRIT 27.1 % (36.7-47.1); HEMOGLOBIN 8.6 g/dL (12.5-16.3); LYMPHOCYTES # (AUTO) 34.2 K/uL (20.0-40.0); LYMPHOCYTES % (AUTO) 76.4 % (20.5-51.5); MEAN CORPUSCULAR HEMOGLOBIN 25.9 uug (23.8-33.4); MEAN CORPUSCULAR HGB CONC 32 g/dL (32.5-36.3); MEAN CORPUSCULAR VOLUME 81.5 fL (73.0-96.2); MONOCYTES # (AUTO) 1.5 K/uL (2.0-10.0); MONOCYTES % (AUTO) 3.3 % (0.0-11.0); NEUTROPHILS # (AUTO) 8.8 K/uL (1.8-8.9); NEUTROPHILS % (AUTO) 19.6 % (38.5-71.5); PLATELET COUNT (AUTO) 308 K/uL (152-348); RED BLOOD CELL COUNT(AUTO) 3.33 MIL/uL (4.06-5.63)
[2018-06-05 12:53] LABS: WHITE BLOOD COUNT (AUTO) 44.8 K/uL (3.6-10.2)
[2018-06-05 12:54] LABS: CARBON DIOXIDE 34 mmol/L (21-32); CHLORIDE 94 mmol/L (98-107); CREATININE 1.1 mg/dL (0.6-1.3); GLUCOSE 183 mg/dL (74-106); UREA NITROGEN, BLOOD 22 mg/dL (7-18)
--- NOTE | 2018-06-05 12:55 | NUR ---
NOTIFIED SALES AGENT INSURANCE OF CRITICAL VALUE FOR WBC 44.8
[2018-06-05 13:03] LABS: LYMPHOCYTES % (MANUAL) 76 % (20-40); MONOCYTES % (MANUAL) 3 % (2-10)
[2018-06-05 13:04] LABS: BAND % (MANUAL) 0 % (0-10); NEUTROPHILS % (MANUAL) 21 % (42-75)
--- NOTE | 2018-06-05 13:56 | NUR ---
Clinical Pharmacy Note: Vancomycin Dosing per Pharmacy Subjective: Vancomycin IV to continue on this 78 yo male patient for cellulitis *(per ID note- can not r/o UTI & pna). Objective: BUN 18/1.0 WBC 37.5 (06/02) Temperature 98.7 Vanco random level on 05/30 at 0800 : 13.7 Vanco random level on 05/31 at 0930: 15.1 Vanco random level on 06/01 at 0600: 17.8 Vanco trough level on 06/03 at 1930: 15.5 ht 167.6 cm wt 68.9 kg Assessment/Plan: Will continue same dose of vanco 1gm IVPB q19h for today. Last dose given today at 1138. Will review renal function and adjust the dose if needed. Will follow
[2018-06-05 16:00] VITALS: BP 149/49
--- NOTE | 2018-06-05 18:30 | NUR ---
PATIENT AOX1. LEGT ARM IV INTACT. PATIENT COMPLAINS OF PAIN TO HIS LEGS. PATIENT MANAGED WITH PAIN MEDICATION ORDERED. NO FEVER DURING THE SHIFT. VITAL SIGNS STABLE THROUGHOUT THE SHIFT. FC IN PLACE DRAINING CLEAR YELLOW URINE. PATIENT COMPLIANT WITH ALL MEDICATION AND CARE.
--- NOTE | 2018-06-05 19:40 | NUR ---
Received report from the days shift OSBALDO Hutchinson. Patient is awake, oriented to person only. Son, Ricardo is at bedside. Oxygen via NC was applied for comfort. Comfort and safety provided. Will continue to monitor.
[2018-06-05 21:14] VITALS: BP 142/52
[2018-06-05] MEDS: ATORVASTATIN 10 MG TABLET PO SCH (22:01)
[2018-06-05] MEDS: FINASTERIDE 5 MG TABLET PO SCH (22:01)
[2018-06-05] MEDS: FLUCONAZOLE 100 MG TABLET PO SCH (22:01)
[2018-06-05] MEDS: MIRTAZAPINE 15 MG TABLET PO SCH (22:02)
[2018-06-05] MEDS: DONEPEZIL 5 MG TABLET PO SCH (22:02)
[2018-06-06] MEDS: VANCOMYCIN IV 1 G in PREMIXED 0 EACH IV SCH (04:15)
[2018-06-06 05:28] VITALS: BP 129/64
[2018-06-06] MEDS: PANTOPRAZOLE SODIUM 40 MG TABLET.DR PO SCH (06:31)
[2018-06-06] MEDS: BLOOD SUGAR DIAGNOSTIC 1 EACH STRIP VI SCH ×2 (06:44→12:40)
--- NOTE | 2018-06-06 08:24 | NUR ---
Awake, alert, oriented x 1, farsi speaking. O2 at 2L/NC. On moderate high back rest. Explained lab test, agreeable
[2018-06-06] MEDS: MEROPENEM 1 G in IV NORMAL SALINE 100 ML IV SCH (09:05)
[2018-06-06] MEDS: CARVEDILOL 25 MG TABLET PO SCH (09:05)
[2018-06-06] MEDS: hydrALAZINE HCL 50 MG TABLET PO SCH (09:06)
[2018-06-06] MEDS: ARIPIPRAZOLE 2 MG TABLET PO SCH (09:06)
[2018-06-06] MEDS: FERROUS SULFATE 325 MG TABEC PO SCH (09:07)
[2018-06-06] MEDS: ASPIRIN 81 MG TAB.CHEW PO SCH (09:07)
[2018-06-06] MEDS: DOCUSATE SODIUM 100 MG CAPSULE PO SCH (09:07)
[2018-06-06] MEDS: DIVALPROEX SPRINKLE 125 MG CAP.SPRINK PO SCH ×2 (09:07→12:40)
[2018-06-06] MEDS: PREGABALIN 50 MG CAPSULE PO SCH (09:07)
[2018-06-06] MEDS: ASCORBIC ACID 500 MG TABLET PO SCH (09:08)
[2018-06-06] MEDS: CLOTRIMAZOLE 1% CREAM 30 GM TUBE TOP SCH ×2 (09:08→12:41)
[2018-06-06] MEDS: CHOLECALCIFEROL 1,000 UNIT TABLET PO SCH (09:08)
[2018-06-06] MEDS: AMLODIPINE 10 MG TABLET PO SCH (09:08)
[2018-06-06] MEDS: INSULIN GLARGINE,HUM 300 UNITS/3 ML CARTRIDGE SQ SCH (09:14)
[2018-06-06 09:30] LABS: IRON, SERUM 16 ug/dL (50-175)
[2018-06-06 09:53] LABS: FERRITIN 165 ng/mL (26-388); LACTATE DEHYDROGENASE 151 U/L (85-227)
[2018-06-06 11:00] VITALS: BP 139/59
[2018-06-06 11:07] LABS: CARBON DIOXIDE 30 mmol/L (21-32); CHLORIDE 93 mmol/L (98-107); CREATININE 1.1 mg/dL (0.6-1.3); GLUCOSE 106 mg/dL (74-106); POTASSIUM 4.3 mmol/L (3.5-5.1); UREA NITROGEN, BLOOD 20 mg/dL (7-18)
--- NOTE | 2018-06-06 11:45 | NUR ---
Clinical Pharmacy Note: Vancomycin Dosing per Pharmacy Subjective: Vancomycin IV to continue on this 78 yo male patient for cellulitis *(per ID note- can not r/o UTI & pna). Objective: BUN 02/03.1 WBC 44.8 Temperature 98.8 Vanco random level on 05/30 at 0800 : 13.7 Vanco random level on 05/31 at 0930: 15.1 Vanco random level on 06/01 at 0600: 17.8 Vanco trough level on 06/03 at 1930: 15.5 ht 167.6 cm wt 68.9 kg Assessment/Plan: Will continue same dose of vanco 1gm IVPB q19h for today. Since srcr has increased, will check vanco trough level before next dose (ordered for rose marie at 2330- RN has been informed to hold midnight dose if vanco trough level above 20 mcg/ml.).Pharmacy will check vanco level in & adjust dose if needed. Will follow
[2018-06-06] MEDS: INSULIN REGULAR, HUMAN 300 UNIT/3 ML VIAL SQ PRN (12:44)
[2018-06-06] MEDS: MAGNESIUM HYDROXIDE 30 ML LIQUID UDC PO PRN (12:44)
--- NOTE | 2018-06-06 13:14 | NUR ---
No BM x 2 days. MOM po given as Instructed by Lucía HERNANDEZ.
[2018-06-06] MEDS ORDERED: Insulin Glargine,Hum SQ ×2 (14:02)
[2018-06-06] MEDS ORDERED: CLOT30CR24 TOP (14:02)
[2018-06-06] MEDS ORDERED: PREG50CA PO (14:02)
[2018-06-06] MEDS ORDERED: PANT40TA2 PO (14:02)
--- NOTE | 2018-06-06 17:41 | NUR ---
With discharge order to SNF, arranged with [facility].Report given to Audra. Mccray catheter removed per request. Midline intact to LUE. Discharged per gurney/ambulance in fair condition, not in distress, afebrile
[2018-06-07 08:10] LABS: *IMMUNOGLOBULIN G, SERUM 633 mg/dL (700-1600); IMMUNOGLOBULIN A, SERUM 134 mg/dL (61-437); IMMUNOGLOBULIN M, SERUM 36 mg/dL (15-143)
[2018-06-07 11:08] LABS: HEPATITIS B SURFACE AB Non Reactive (.); HEPATITIS B SURFACE AG Negative (Negative)
[2018-06-08 16:06] LABS: HAPTOGLOBIN 394 mg/dL (34-200)
[2018-06-09 08:06] LABS: A/G RATIO 0.8 (0.7-1.7); ALBUMIN 2.4 g/dL (2.9-4.4); ALPHA-1-GLOBULIN 0.4 g/dL (0.0-0.4); ALPHA-2-GLOBULIN 1.1 g/dL (0.4-1.0); BETA GLOBULIN 0.8 g/dL (0.7-1.3); GAMMA GLOBULIN 0.7 g/dL (0.4-1.8); M-SPIKE 0.1 g/dL (Not Observed)
== END 2018-06-06 17:30 | DRG 602 ==
LOC: ER 08:17 → MEDSURG3 09:40
PROVIDERS: ADMIT Nurse Practitioner Acute Care; ATTEND Nurse Practitioner Acute Care
PROC: 05HY33Z Insertion of Infusion Device into Upper Vein, Percutaneous Approach (ICD-10-PCS; principal; 2018-06-04)
DX: L03.116 Cellulitis of left lower limb (principal); N17.0 Acute kidney failure with tubular necrosis; G93.41 Metabolic encephalopathy; J15.9 Unspecified bacterial pneumonia; E43 Unspecified severe protein-calorie malnutrition; J96.90 Respiratory failure, unspecified, unspecified whether with hypoxia or hypercapnia; C91.10 Chronic lymphocytic leukemia of B-cell type not having achieved remission; I50.42 Chronic combined systolic (congestive) and diastolic (congestive) heart failure; J98.11 Atelectasis; D68.59 Other primary thrombophilia; E22.2 Syndrome of inappropriate secretion of antidiuretic hormone; I11.0 Hypertensive heart disease with heart failure; I25.2 Old myocardial infarction; G30.9 Alzheimer's disease, unspecified; F02.80 Dementia in other diseases classified elsewhere, unspecified severity, without behavioral disturbance, psychotic disturbance, mood disturbance, and anxiety; B35.3 Tinea pedis; I25.5 Ischemic cardiomyopathy; G20 Parkinson's disease; B35.1 Tinea unguium; L85.3 Xerosis cutis; I44.7 Left bundle-branch block, unspecified; N40.0 Benign prostatic hyperplasia without lower urinary tract symptoms; M19.90 Unspecified osteoarthritis, unspecified site; K21.9 Gastro-esophageal reflux disease without esophagitis; I25.10 Atherosclerotic heart disease of native coronary artery without angina pectoris; F25.0 Schizoaffective disorder, bipolar type; M48.061 Spinal stenosis, lumbar region without neurogenic claudication; E83.52 Hypercalcemia; E78.5 Hyperlipidemia, unspecified; E11.65 Type 2 diabetes mellitus with hyperglycemia; Z79.4 Long term (current) use of insulin; Z85.118 Personal history of other malignant neoplasm of bronchus and lung; Z90.2 Acquired absence of lung [part of]; Z68.22 Body mass index [BMI] 22.0-22.9, adult; Z79.899 Other long term (current) drug therapy; E11.51 Type 2 diabetes mellitus with diabetic peripheral angiopathy without gangrene; E83.39 Other disorders of phosphorus metabolism; I70.0 Atherosclerosis of aorta; D63.0 Anemia in neoplastic disease; R62.7 Adult failure to thrive
CPT/HCPCS: 36415; 36569; 70030-TC; 71045; 71250; 82747; 82784; 83010; 83550; 83605; 83615; 83690; 83735; 84100; 84155; 84165; 84443; 85014; 85025; 85730; 86334; 86706; 86803; 86880; 87040; 87086; 87340; 87400; 93005; 93307; 94640; 94664; 97110; 97112; 97116; 97530; A4663; G0378; J0692; J1450; J1650; J1815; J1940; J2185; J2270; J2543; J3370; J3490; J7030; J7060

== ENCOUNTER 2018-10-23 14:28 | Outpatient (CLI) | payer MEDICARE, MEDICAID ==
[~2018-10-23 14:28] MED LIST changes: +ACET325T53 PO; -ACID1TAB4 PO; +CARV25TA PO; -CARV6.252 PO; +CLOT30CR24 TOP; +DONE5TAB34 PO; -DONE5TAB7 PO; +HYDR-4077 PO; -HYDR-4384 PO; -INSU100V10 SQ; +INSU500I SQ; +Insulin Glargine,Hum SQ; -LACT1CAP61 PO; +LACT1CAP7 PO; -LISI-607 PO; +MIRT15TA7 PO; -MULT-447 PO; -NIAC250T8 PO; -OMEP40CA37 PO; +PANT40TA2 PO; -POLY17PO4 PO; -PREG100C PO; +PREG50CA PO; -REPA1TAB6 PO; -TAMS-3 PO; -TRAZ-214 PO
[2018-10-23] MEDS ORDERED: BARIUM SULFATE 148 GM SUSP.RECON PO ONE (14:29)
[2018-10-23] MEDS ORDERED: BARIUM SULFATE 240 ML ORAL.SUSP PO ONE (14:29)
== END 2018-10-23 23:59 | disposition home or self-care (01) ==
LOC: RAD 14:28
PROVIDERS: ATTEND Internal Medicine
DX: R13.10 Dysphagia, unspecified (principal); I50.9 Heart failure, unspecified; I25.10 Atherosclerotic heart disease of native coronary artery without angina pectoris; M19.90 Unspecified osteoarthritis, unspecified site; E11.9 Type 2 diabetes mellitus without complications
CPT/HCPCS: 74230

== ENCOUNTER 2019-06-08 16:43 | Inpatient (IN) | payer MEDICARE, OTHER ==
[~2019-06-08] VITALS: Ht 162.6 cm; Wt 74.0 kg
[2019-06-08 18:11] LABS: EOSINOPHILS # (AUTO) 0.1 K/uL (0.0-0.7); HEMATOCRIT 35.7 % (36.7-47.1); HEMOGLOBIN 11.4 g/dL (12.5-16.3); LYMPHOCYTES # (AUTO) 39.4 K/uL (20.0-40.0); RED BLOOD CELL COUNT(AUTO) 4.29 MIL/uL (4.06-5.63)
[2019-06-08 18:13] LABS: BASOPHILS # (AUTO) 0.1 K/uL (0.0-8.0); BASOPHILS % (AUTO) 0.2 % (0.0-2.0); CREATINE KINASE, TOTAL 36 U/L (39-308); EOSINOPHILS % (AUTO) 0.2 % (0.0-7.0); LYMPHOCYTES % (AUTO) 75.7 % (20.5-51.5); MEAN CORPUSCULAR HEMOGLOBIN 26.5 uug (23.8-33.4); MEAN CORPUSCULAR HGB CONC 32 g/dL (32.5-36.3); MEAN CORPUSCULAR VOLUME 83.2 fL (73.0-96.2); MONOCYTES # (AUTO) 2.3 K/uL (2.0-10.0); MONOCYTES % (AUTO) 4.4 % (0.0-11.0); NEUTROPHILS # (AUTO) 10.1 K/uL (1.8-8.9); NEUTROPHILS % (AUTO) 19.5 % (38.5-71.5); PLATELET COUNT (AUTO) 268 K/uL (152-348)
[2019-06-08] MEDS ORDERED: AZITHROMYCIN IV 500 MG in IV DEXTROSE 5% 250 ML IV ONE (18:15)
[2019-06-08] MEDS ORDERED: IV NORMAL SALINE 1000 ML BAG IV ONE (18:15)
[2019-06-08] MEDS ORDERED: CEFTRIAXONE 1 G in IV DEXTROSE 5% 50 ML IV ONE (18:15)
--- NOTE | 2019-06-08 18:19 | NUR ---
EPIC PAGED (NELLI)
[2019-06-08 18:26] LABS: ALANINE AMINOTRANSFERASE 9 U/L (16-63); ALKALINE PHOSPHATASE 87 U/L (50-136); ASPARTATE AMINOTRANSFERASE 9 U/L (15-37); BILIRUBIN,TOTAL 0.2 mg/dL (0.2-1.0); CARBON DIOXIDE 31 mmol/L (21-32); CHLORIDE 96 mmol/L (98-107); CREATININE 1.4 mg/dL (0.6-1.3); FERRITIN 328 ng/mL (26-388); LACTATE DEHYDROGENASE 122 U/L (85-227); POTASSIUM 4.2 mmol/L (3.5-5.1); TOTAL PROTEIN, SERUM 6.6 g/dL (6.4-8.2); UREA NITROGEN, BLOOD 29 mg/dL (7-18)
[2019-06-08 18:27] LABS: GLUCOSE 370 mg/dL (74-106)
[2019-06-08] MEDS ORDERED: AZITHROMYCIN 500MG/ D5W 250ML IVPB **ER PYXIS ONLY IV ONE (18:36)
[2019-06-08] MEDS ORDERED: CEFTRIAXONE /D5W 50ML IVPB **ER PYXIS IV ONE (18:36)
[2019-06-08 18:41] LABS: LYMPHOCYTES % (MANUAL) 75 % (20-40); MONOCYTES % (MANUAL) 4 % (2-10); NEUTROPHILS % (MANUAL) 21 % (42-75)
--- NOTE | 2019-06-08 19:00 | NUR ---
HAND OFF AND SBAR GIVEN TO INCOMING MOLASSES COLORING OPERATOR PT ON NR 10LPM 100% O2MASK OK FOR ADMIT TO TELE UNDER DR WEBSTER DX: FEBRILE ILLNESS
[2019-06-08 19:34] LABS: *BILIRUBIN,URIN NEGATIVE (NEGATIVE); *BLOOD, URINE NEGATIVE (NEGATIVE); *CLARITY,URINE CLEAR (CLEAR); *COLOR,URINE YELLOW (YELLOW); *KETONES,URINE NEGATIVE (NEGATIVE); *UROBILINOGEN,URINE 0.2 E.U./dl (NORMAL); BACTERIA,URINE NONE SEEN /HPF (NONE SEEN); LEUKOCYTE ESTERASE ,URINE NEGATIVE (NEGATIVE); NITRITE, URINE NEGATIVE (NEGATIVE); PH,URINE 5.5 (5.0-8.0); RBC,URINE 0-3 /HPF (0-3); SQUAMOUS EPITHELIAL CELL,UR FEW /HPF (NONE SEEN); UGLUCOSE 3+ (NEGATIVE); WBC,URINE 0-3 /HPF (0-3)
[2019-06-08] MEDS ORDERED: DICYCLOMINE HCL 10 MG CAPSULE PO PRN (20:30)
[2019-06-08] MEDS ORDERED: DEXTROSE 50% 50 ML DISP.SYRIN IV PRN (20:30)
--- NOTE | 2019-06-08 20:30 | NUR ---
Pt. admitted to TELE, under care of Dr. RAMOS Belongs List completed
[2019-06-08] MEDS ORDERED: MEROPENEM 1 G in IV NORMAL SALINE 100 ML IV SCH ×2 (21:00→21:17)
--- NOTE | 2019-06-08 21:00 | NUR ---
Patient transported by ER nurse via stretcher in stable condition at 2039. Patient is verbal, but mainly Farsi speaking. Unable to assess orientation at this time. Not in active distress. Noted with slight shortness of breath as he is speaking on RA. Head to toe assessment done, will document accordingly. No skin issues noted. Placed on 2LPM O2 via NC. No belongings noted with patient. Placed patient in comfortable position. All admission orders noted, will carryout and document accordingly. Sinus Rhythm on Tele at 74. ER reported PIV on R hand, 22 G,unable to flush. Pt pulled out IV on his way here. Will insert new one.
[2019-06-08] MEDS: BLOOD SUGAR DIAGNOSTIC 1 EACH STRIP VI SCH (21:30)
[2019-06-08] MEDS: INSULIN GLARGINE,HUM 300 UNITS/3 ML CARTRIDGE SQ SCH (21:45)
[2019-06-08] MEDS ORDERED: MEROPENEM 1 G VIAL IV ONE (21:48)
[2019-06-08] MEDS: ACETAMINOPHEN 325 MG TABLET PO PRN (21:57)
[2019-06-08] MEDS: FINASTERIDE 5 MG TABLET PO SCH (21:57)
[2019-06-08] MEDS: DONEPEZIL 5 MG TABLET PO SCH (21:57)
[2019-06-08] MEDS: MIRTAZAPINE 15 MG TABLET PO SCH (21:58)
[2019-06-08 22:09] VITALS: BP 141/61
--- NOTE | 2019-06-08 22:30 | NUR ---
All PO medications given as ordered, tolerated whole, but one at a time and with mashed potato and thickened liquid. Able to speak with son at this time and gathered all assessment questions patient is unable to answer. Tried to start a new IV line on patient, tried 3x unable to. Reported to Charge Nurse who contacted ER department for assistance. Waiting for IV line to be started, to administer IV ordered. Remains stable. Placed in comfortable position.
[2019-06-08] MEDS: INSULIN REGULAR, HUMAN 300 UNIT/3 ML VIAL SQ PRN (22:52)
[2019-06-09] VITALS: BP 157/58
--- NOTE | 2019-06-09 02:15 | NUR ---
Patient continues to sleep in bed, no signs of distress. O2 2LPM via NC kept in place. ER nurse arrived and assisted RN in insertion of 22G IV on L wrist. IV ATB as ordered started.
[2019-06-09 04:00] VITALS: BP 142/59
[2019-06-09] MEDS: PANTOPRAZOLE SODIUM 40 MG TABLET.DR PO SCH (06:08)
[2019-06-09] MEDS: ACETAMINOPHEN 325 MG TABLET PO PRN (06:08)
[2019-06-09] MEDS: BLOOD SUGAR DIAGNOSTIC 1 EACH STRIP VI SCH ×4 (06:30→20:50)
--- NOTE | 2019-06-09 06:52 | NUR ---
Patient is sleeping in bed. Patient tolerated AM medications well, with apple sauce. BS checked: 79. 1 whole apple sauce given, and tolerated well. No signs of hypoglycemia at this time. At baseline level of consciousness and orientation. Pt kept O2 in place, 2 LPM via NC. IV access also intact on L wrist. Refuses water at this time, awaiting thickener. Tylenol 650 mg given x 2 during shift, per patient's verbalization of "pain". Isolation and safety precautions kept in place. Will endorse accordingly.
[2019-06-09 07:34] LABS: ALANINE AMINOTRANSFERASE 17 U/L (16-63); ALKALINE PHOSPHATASE 82 U/L (50-136); ASPARTATE AMINOTRANSFERASE 14 U/L (15-37); BILIRUBIN,TOTAL 0.2 mg/dL (0.2-1.0); CARBON DIOXIDE 33 mmol/L (21-32); CHLORIDE 106 mmol/L (98-107); CHOLESTEROL 126 mg/dL (<200); CREATININE 1.1 mg/dL (0.6-1.3); GLUCOSE 84 mg/dL (74-106); HDL CHOLESTEROL 14 mg/dL (40-60); MAGNESIUM 2.1 mg/dL (1.8-2.4); POTASSIUM 3.6 mmol/L (3.5-5.1); TOTAL PROTEIN, SERUM 6.6 g/dL (6.4-8.2); TRIGLYCERIDES 174 MG/DL (30-150); UREA NITROGEN, BLOOD 21 mg/dL (7-18)
[2019-06-09 08:00] VITALS: BP 144/82
[2019-06-09 08:19] LABS: THYROID STIMULATING HORMONE 1.938 mIU/mL (0.358-3.740); VALPROIC ACID 24 ug/mL (50-100)
[2019-06-09] MEDS: CULTURELLE CAPSULE PO SCH (09:00)
[2019-06-09] MEDS ORDERED: MEROPENEM 1 G in IV NORMAL SALINE 100 ML IV SCH ×2 (09:00→21:00)
[2019-06-09] MEDS: DOCUSATE SODIUM 100 MG CAPSULE PO SCH (09:00)
[2019-06-09] MEDS ORDERED: AMLODIPINE 10 MG TABLET PO SCH (09:00)
[2019-06-09] MEDS: DIVALPROEX SPRINKLE 125 MG CAP.SPRINK PO SCH ×3 (09:01→17:00)
[2019-06-09] MEDS: CLOPIDOGREL 75 MG TABLET PO SCH (09:01)
[2019-06-09] MEDS: CHOLECALCIFEROL 1,000 UNIT TABLET PO SCH (09:01)
[2019-06-09] MEDS: PREGABALIN 50 MG CAPSULE PO SCH ×2 (09:02→17:01)
[2019-06-09] MEDS: ASCORBIC ACID 500 MG TABLET PO SCH (09:02)
[2019-06-09] MEDS: INSULIN REGULAR, HUMAN 300 UNIT/3 ML VIAL SQ PRN ×3 (09:06→17:22)
[2019-06-09] MEDS: INSULIN GLARGINE,HUM 300 UNITS/3 ML CARTRIDGE SQ SCH ×2 (09:06→20:51)
[2019-06-09 09:15] LABS: BASOPHILS # (AUTO) 0.1 K/uL (0.0-8.0); BASOPHILS % (AUTO) 0.2 % (0.0-2.0); EOSINOPHILS # (AUTO) 0.5 K/uL (0.0-0.7); HEMATOCRIT 36.9 % (36.7-47.1); HEMOGLOBIN 11.5 g/dL (12.5-16.3); LYMPHOCYTES # (AUTO) 40.1 K/uL (20.0-40.0); LYMPHOCYTES % (AUTO) 75.4 % (20.5-51.5); MEAN CORPUSCULAR HEMOGLOBIN 26.1 uug (23.8-33.4); MEAN CORPUSCULAR HGB CONC 31 g/dL (32.5-36.3); MEAN CORPUSCULAR VOLUME 83.5 fL (73.0-96.2); MONOCYTES # (AUTO) 1.9 K/uL (2.0-10.0); MONOCYTES % (AUTO) 3.5 % (0.0-11.0); NEUTROPHILS # (AUTO) 10.6 K/uL (1.8-8.9); NEUTROPHILS % (AUTO) 19.9 % (38.5-71.5); PLATELET COUNT (AUTO) 283 K/uL (152-348); RED BLOOD CELL COUNT(AUTO) 4.42 MIL/uL (4.06-5.63)
[2019-06-09 09:21] LABS: WHITE BLOOD COUNT (AUTO) 53.3 K/uL (3.6-10.2)
[2019-06-09 10:20] LABS: BAND % (MANUAL) 2 % (0-10); EOSINOPHILS % (MANUAL) 2 % (0-8); LYMPHOCYTES % (MANUAL) 74 % (20-40); MONOCYTES % (MANUAL) 7 % (2-10); NEUTROPHILS % (MANUAL) 15 % (42-75)
[2019-06-09 11:00] VITALS: BP 138/58
[2019-06-09 11:22] LABS: IRON, SERUM 17 ug/dL (50-175)
--- NOTE | 2019-06-09 12:21 | NUR ---
verbal report given to rn. Greer Dexter. patient transfer to [facility] room 311 after been examined and seen by attending physician Dr. Silva. Report given to Md and orders received see order hx.
--- NOTE | 2019-06-09 12:30 | NUR ---
Patient received in bed. Patient does not speak Libyan, Farsi only. Patient has no s/s of respiratory distress. Patient on 2L NC. Patient has no s/s of pain. Safety measures in place. Will continue with the plan of care.
[2019-06-09] MEDS: CARVEDILOL 6.25 MG TABLET PO SCH (17:15)
[2019-06-09] MEDS ORDERED: AZITHROMYCIN IV 500 MG in IV DEXTROSE 5% 250 ML IV SCH (18:00)
--- NOTE | 2019-06-09 18:37 | NUR ---
Patient resting in bed. Patient has no s/s of sob or respiratory distress. Patient has no s/s of pain. Needs are attended. Safety measures in place.
[2019-06-09 20:00] VITALS: BP 126/50
--- NOTE | 2019-06-09 20:00 | NUR ---
Received patient resting in bed, easily to arouse. Patient is farsi speaking. No signs of acute distress noted. No s/s of pain or SOB. On air loss mattress. IV on left wrist is intact and patent. Vitals WNL. Hemiparesis noted on right side. Safety measures initiated. Aspiration precautions maintained. Bed is low and locked, call light within reach. Will continue to monitor.
[2019-06-09] MEDS: MIRTAZAPINE 15 MG TABLET PO SCH (20:50)
[2019-06-09] MEDS: FINASTERIDE 5 MG TABLET PO SCH (20:50)
[2019-06-09] MEDS: DONEPEZIL 5 MG TABLET PO SCH (20:50)
[2019-06-10] VITALS: BP 149/63
[2019-06-10 05:00] VITALS: BP 145/57
[2019-06-10] MEDS: PANTOPRAZOLE SODIUM 40 MG TABLET.DR PO SCH (06:24)
[2019-06-10] MEDS: BLOOD SUGAR DIAGNOSTIC 1 EACH STRIP VI SCH ×3 (06:35→16:59)
--- NOTE | 2019-06-10 07:32 | NUR ---
Patient received in bed awake. Patient is Farsi speaking. No s/s of SOB or respiratory distress. No s/s of pain. Vitals WNL. Safety measures in place. Will continue with the plan of care.
[2019-06-10] MEDS: DIVALPROEX SPRINKLE 125 MG CAP.SPRINK PO SCH ×3 (08:02→16:53)
[2019-06-10] MEDS: CHOLECALCIFEROL 1,000 UNIT TABLET PO SCH (08:02)
[2019-06-10] MEDS: CLOPIDOGREL 75 MG TABLET PO SCH (08:02)
[2019-06-10] MEDS: CULTURELLE CAPSULE PO SCH (08:04)
[2019-06-10] MEDS: PREGABALIN 50 MG CAPSULE PO SCH ×2 (08:04→16:53)
[2019-06-10] MEDS: ASCORBIC ACID 500 MG TABLET PO SCH (08:04)
[2019-06-10] MEDS: CARVEDILOL 6.25 MG TABLET PO SCH ×2 (08:05→17:17)
[2019-06-10] MEDS: MORPHINE SULFATE 2 MG/1 ML DISP.SYRIN IV PRN ×2 (08:17→15:45)
[2019-06-10] MEDS: DOCUSATE SODIUM 100 MG CAPSULE PO SCH ×2 (09:00→16:53)
[2019-06-10] MEDS ORDERED: LOSARTAN POTASSIUM 50 MG TABLET PO SCH ×2 (09:00→21:00)
[2019-06-10] MEDS: INSULIN GLARGINE,HUM 300 UNITS/3 ML CARTRIDGE SQ SCH (10:17)
[2019-06-10 12:00] VITALS: BP 128/56
[2019-06-10 17:17] VITALS: BP 135/59
[2019-06-10] MEDS: INSULIN REGULAR, HUMAN 300 UNIT/3 ML VIAL SQ PRN (17:20)
--- NOTE | 2019-06-10 18:43 | NUR ---
Patient rested well in between care. No s/s of SOB or acute distress. No s/s of pain. Repositioned Q2H. Incontinence care provided. Aspiration precautions maintained. Needs attended. Vitals are stable. Safety measures in place. Bed low and locked. Call light within reach. Will endorse to the oncoming nurse for the continuity of care
--- NOTE | 2019-06-10 19:07 | NUR ---
Per Dr. Ricardo Heart, patient discharged to [facility]. Picked up by the [facility]. Gave report to Mohan Cleaning, SIER[facility]. Vitals are stable. Will inform his son, Ricardo.
== END 2019-06-10 19:15 | DRG 682 ==
LOC: ER 16:44 → TELE3 20:14
PROVIDERS: ADMIT Internal Medicine
DX: N17.0 Acute kidney failure with tubular necrosis (principal); G92 Toxic encephalopathy; C91.10 Chronic lymphocytic leukemia of B-cell type not having achieved remission; D68.69 Other thrombophilia; I50.42 Chronic combined systolic (congestive) and diastolic (congestive) heart failure; I47.1 Supraventricular tachycardia; F02.80 Dementia in other diseases classified elsewhere, unspecified severity, without behavioral disturbance, psychotic disturbance, mood disturbance, and anxiety; G30.9 Alzheimer's disease, unspecified; G20 Parkinson's disease; B35.1 Tinea unguium; D50.9 Iron deficiency anemia, unspecified; E11.65 Type 2 diabetes mellitus with hyperglycemia; E11.42 Type 2 diabetes mellitus with diabetic polyneuropathy; I11.0 Hypertensive heart disease with heart failure; I25.10 Atherosclerotic heart disease of native coronary artery without angina pectoris; I25.5 Ischemic cardiomyopathy; I25.2 Old myocardial infarction; M19.90 Unspecified osteoarthritis, unspecified site; Z86.73 Personal history of transient ischemic attack (TIA), and cerebral infarction without residual deficits; Z79.4 Long term (current) use of insulin; G89.29 Other chronic pain; E78.5 Hyperlipidemia, unspecified; I44.7 Left bundle-branch block, unspecified; N40.0 Benign prostatic hyperplasia without lower urinary tract symptoms; Z85.118 Personal history of other malignant neoplasm of bronchus and lung; Z90.2 Acquired absence of lung [part of]
CPT/HCPCS: 36415; 70030-TC; 71045; 80164; 83550; 83605; 83615; 83735; 84100; 84443; 85025; 85730; 87040; 87086; 87400; 93005; 93307; A4663; C1758; G0378; J0456; J0696; J1815; J2185; J2270; J3490; J7030; J7040; J7060